=== PATIENT | female | born 1950 | race Caucasian/White ===

== ENCOUNTER → 2017-12-28 11:56 | Outpatient (REF) | payer MEDICARE, SELFPAY ==
--- NOTE | 2017-12-28 11:30 | SKI_PTH ---
PATIENT: Sonia Philippe LOC: [facility] U#:[id number] AGE/SX: 74/F ROOM: RE12/28/[address]: Isabel Arreaga : 1950 BED: DIS: SPEC #: [id number] RECD: 12/29/17 12:43 STATUS: MATEO THORNTON #: [id number] VADIM: 12/28/17 11:[address]: Isabel Arreaga DEPT: Surgical Specimen RECD BY: Radha Beach Tissues: 1 - SKIN BIOPSY(SHAVE/PUNCH) Procedures: SKIN LEVEL 4 Comments: [id number]
== END ==
LOC: NCHCN 11:56
PROVIDERS: PCP Family Medicine; Visit Provider Family Medicine
DX: C43.62 Malignant melanoma of left upper limb, including shoulder (principal)
CPT/HCPCS: 88305

== ENCOUNTER 2018-02-08 00:07 | Outpatient (CLI) | payer MEDICARE, SELFPAY ==
--- NOTE | 2018-02-08 13:06 | DI.RAD_ITS ---
SYMPTOMS/DIAGNOSIS: SCREENING FOR OSTEOPOROSIS IN POSTMENOPAUSAL WOMAN, Z78.0, PREVENTATIVE CARE, Z00.00 DEXA SCAN: The scanogram of the dorsolumbar spine is unremarkable. For the left forearm a T score of -0.9 and a Z score of 0.7 are within the normal range. For the left hip a T score of 0.3 and a Z score of 1.6 are within the normal range. For the lumbar spine a T score of 1.1 and a Z score of 2.9 are within the normal range.
== END 2018-02-08 00:27 ==
PROVIDERS: PCP Family Medicine; Visit Provider Family Medicine
DX: Z13.820 Encounter for screening for osteoporosis (principal); Z78.0 Asymptomatic menopausal state
CPT/HCPCS: 77080

== ENCOUNTER 2018-06-21 18:08 | Emergency (ER) | payer MEDICARE, SELFPAY ==
[2018-06-21 18:13] VITALS: BP 153/98; PULSE 76; RESP 18; TEMP 36.7; O2SAT 96
--- NOTE | 2018-06-21 18:14 | W.ED.GENAD ---
Discharge Plan Disposition Patient Disposition: HOME Condition: Stable Discharge Details Chief Complaint: RespSymp Clinical Impression: Community acquired pneumonia Primary Care Provider: Isabel Arreaga ED Provider: Ilan Richter Home Meds and New Rx's Prescriptions: New prednisone 20 mg tablet 60 mg PO DAILY 4 Days Qty: 12 RF: 0 levofloxacin 750 mg tablet 750 mg PO DAILY Qty: 4 RF: 0 Continued citalopram 20 MG tablet 40 mg PO HS RF: 0 codeine-guaifenesin [Virtussin AC] 10-100 mg/5 mL Liquid 5 ml PO QID RF: 0 Discharge Instructions Instructions: Community Acquired Pneumonia (ED) Additional Instructions: you are being treated for a lung infection follow up with your primary care provider's office within a week if you have worsening shortness of breath or severe worsening of pain return to the emergency department for reevaluation you can take 1000mg tylenol and 600mg ibuprofen every 6 hours for pain as needed Medical Decision Making 67 yo female with hx of chronic fatgiue syndrome, migraines, who comes in with 3 weeks of cough. Denies fevers, recent travel, chest pain/pressure. HAs a headache she has with coughing she states feels like mild migraine, is intermittent, not worse of her life and slowly worsens so doubt sah and has no meningismus to suggest scrub tech infection. She does have wheezing in the rll on exam, speaking in full sentences on exam in no distress. Will treat with neb, steroids and obtain cxr. Is HD stable and appears well systemically so do not feel labs indicated to eval for sepsis at this time. pt remains stable, cough has improved with neb and steroids and wheezing in right lower lobe inproved. Xray negative on my read but given her cough and focal findings on xray will start abx to cover for CAP. She is allergic to tetracyclines so will start levofloxacin. Advised f/u with pcp and return precautions given Differential Diagnosis uri, post nasal drip, cap Imaging Data Radiologic Study: Attestation: I personally reviewed and interpreted this imaging study as follows: Imaging: X-Ray Radiologist's impression: IMPRESSION: No evidence for acute abnormality in the chest HPI General Mode of arrival: ambulatory. Date/Time Provider Initiated Documentation: 06/21/18 18:10. Limitations to Documentation: no limitations. Information obtained by: patient. History of Present Illness 67 year old F presents to the emergency department with the chief complaint of cough, described as moderate, with intensity rated at 5. Patient started experiencing this week(s) (3) and it has been constant. No relieving factors improve symptom(s), No exacerbating factors reported . Patient did receive the following treatments prior to arrival, none Related Data Home Medications Medication Instructions Recorded Confirmed citalopram 40 mg PO HS 12/06/12 06/21/18 codeine-guaifenesin [Virtussin AC] 5 ml PO QID 06/21/18 06/21/18 levofloxacin 750 mg PO DAILY #4 tab 06/21/18 prednisone 60 mg PO DAILY 4 Days #12 tab 06/21/18 Previous Rx's Medication Instructions Recorded levofloxacin 750 mg PO DAILY #4 tab 06/21/18 prednisone 60 mg PO DAILY 4 Days #12 tab 06/21/18 Allergies Allergy/AdvReac Type Severity Reaction Status Date / Time Penicillins Allergy Intermediate Hives Unverified 06/21/18 18:16 tetracycline [Tetracycline] Allergy Intermediate hive Unverified 06/21/18 18:16 meclizine Allergy Unknown Unverified 06/21/18 18:16 Review of Systems Review of Systems All systems reviewed & are unremarkable except as noted in HPI and below Constitutional Denies chills, Denies fever(s) and Denies weakness Cardiovascular Denies chest pain and Denies dyspnea Respiratory Denies dyspnea Gastrointestinal Denies abdominal pain, Denies nausea and Denies vomiting Musculoskeletal Denies joint swelling Integumentary/Breasts Denies rash Neurologic Denies weakness [facility] Medical History Cerebral palsy Chronic Fatigue Depression Disability Irritable bowel syndrome Malrotation Bowel migraine, unspec., not intractable Surgical History Appendectomy Colonoscopy - MAC (04/28/17) 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) Vaginal hysterectomy Social History Smoking/Tobacco Use Status: Former Tobacco Use Exam Const General: no acute distress Orientation: alert HENMT Head: normal to inspection Ears: external ears normal General nose exam: external nose normal Mouth: moist mucous membranes Eyes General: appearance normal, both eyes and all related structures Neck Neck: normal visual inspection Resp Effort & Inspection: normal respiratory effort and able to speak in complete sentences Cardio Rate: regular rate Skin General skin exam: no rashes or lesions noted Neuro General: alert and oriented x3 Extrem General: normal to inspection Psych Mental Status: mental status grossly normal
--- NOTE | 2018-06-21 18:19 | DI.RAD_ITS ---
SYMPTOM/DIAGNOSIS: COUGH PA AND LATERAL CHEST: 06/21/18 The heart is normal in size. The lungs are clear. The mediastinal structures and pleura appear intact. CONCLUSION: Normal chest.
--- NOTE | 2018-06-21 18:24 | ED.GENADUL_ITS ---
Discharge Plan Disposition Patient Disposition: HOME Condition: Stable Discharge Details Chief Complaint: RespSymp Clinical Impression: Community acquired pneumonia Primary Care Provider: Isabel Arreaga ED Provider: Ilan Richter Home Meds and New Rx's Prescriptions: New prednisone 20 mg tablet 60 mg PO DAILY 4 Days Qty: 12 RF: 0 levofloxacin 750 mg tablet 750 mg PO DAILY Qty: 4 RF: 0 Continued citalopram 20 MG tablet 40 mg PO HS RF: 0 codeine-guaifenesin [Virtussin AC] 10-100 mg/5 mL Liquid 5 ml PO QID RF: 0 Discharge Instructions Instructions: Community Acquired Pneumonia (ED) Additional Instructions: you are being treated for a lung infection follow up with your primary care provider's office within a week if you have worsening shortness of breath or severe worsening of pain return to the emergency department for reevaluation you can take 1000mg tylenol and 600mg ibuprofen every 6 hours for pain as needed Medical Decision Making 67 yo female with hx of chronic fatgiue syndrome, migraines, who comes in with 3 weeks of cough. Denies fevers, recent travel, chest pain/pressure. HAs a headache she has with coughing she states feels like mild migraine, is intermittent, not worse of her life and slowly worsens so doubt sah and has no meningismus to suggest branch account manager infection. She does have wheezing in the rll on exam, speaking in full sentences on exam in no distress. Will treat with neb, steroids and obtain cxr. Is HD stable and appears well systemically so do not feel labs indicated to eval for sepsis at this time. pt remains stable, cough has improved with neb and steroids and wheezing in right lower lobe inproved. Xray negative on my read but given her cough and focal findings on xray will start abx to cover for CAP. She is allergic to tetracyclines so will start levofloxacin. Advised f/u with pcp and return precautions given Differential Diagnosis uri, post nasal drip, cap Imaging Data Radiologic Study: Attestation: I personally reviewed and interpreted this imaging study as follows: Imaging: X-Ray Radiologist's impression: IMPRESSION: No evidence for acute abnormality in the chest HPI General Mode of arrival: ambulatory . Date/Time Provider Initiated Documentation: 06/21/18 18:10 . Limitations to Documentation: no limitations . Information obtained by: patient . History of Present Illness 67 year old F presents to the emergency department with the chief complaint of cough, described as moderate, with intensity rated at 5. Patient started experiencing this week(s) (3) and it has been constant. No relieving factors improve symptom(s), No exacerbating factors reported . Patient did receive the following treatments prior to arrival, none Related Data Home Medications Medication Instructions Recorded Confirmed citalopram 40 mg PO HS 12/06/12 06/21/18 codeine-guaifenesin [Virtussin AC] 5 ml PO QID 06/21/18 06/21/18 levofloxacin 750 mg PO DAILY #4 tab 06/21/18 prednisone 60 mg PO DAILY 4 Days #12 tab 06/21/18 Previous Rx's Medication Instructions Recorded levofloxacin 750 mg PO DAILY #4 tab 06/21/18 prednisone 60 mg PO DAILY 4 Days #12 tab 06/21/18 Allergies Allergy/AdvReac Type Severity Reaction Status Date / Time Penicillins Allergy Intermediate Hives Unverified 06/21/18 18:16 tetracycline [Tetracycline] Allergy Intermediate hive Unverified 06/21/18 18:16 meclizine Allergy Unknown Unverified 06/21/18 18:16 Review of Systems Review of Systems All systems reviewed & are unremarkable except as noted in HPI and below Constitutional Denies chills, Denies fever(s) and Denies weakness Cardiovascular Denies chest pain and Denies dyspnea Respiratory Denies dyspnea Gastrointestinal Denies abdominal pain, Denies nausea and Denies vomiting Musculoskeletal Denies joint swelling Integumentary/Breasts Denies rash Neurologic Denies weakness [facility] Medical History Cerebral palsy Chronic Fatigue Depression Disability Irritable bowel syndrome Malrotation Bowel migraine, unspec., not intractable Surgical History Appendectomy Colonoscopy - MAC (04/28/17) 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) Vaginal hysterectomy Social History Smoking/Tobacco Use Status: Former Tobacco Use Exam Const General: no acute distress Orientation: alert HENMT Head: normal to inspection Ears: external ears normal General nose exam: external nose normal Mouth: moist mucous membranes Eyes General: appearance normal, both eyes and all related structures Neck Neck: normal visual inspection Resp Effort & Inspection: normal respiratory effort and able to speak in complete sentences Cardio Rate: regular rate Skin General skin exam: no rashes or lesions noted Neuro General: alert and oriented x3 Extrem General: normal to inspection Psych Mental Status: mental status grossly normal
[2018-06-21] MEDS: Ketorolac 30 MG/ML VIAL IVP (18:25)
[2018-06-21] MEDS: predniSONE 20 MG TAB 60 MG PO (18:28)
[2018-06-21 18:36] VITALS: RESP 1
[2018-06-21] MEDS: Albuterol/Ipratropium 3 ML UPD VIAL UPD (18:36)
--- NOTE | 2018-06-21 19:00 | DI.VRAD_ITS ---
EXAM: XR Chest, 2 Views EXAM DATE/TIME: 06/21/2018 6:20 PM CLINICAL HISTORY: 67 years old, female; Signs and symptoms; Other: Cough TECHNIQUE: XR of the chest, 2 views. COMPARISON: CR CHEST 2 VIEWS PA,LAT 07/14/2017 9:02 AM FINDINGS: Lungs: Unremarkable. No consolidation. Pleural space: Unremarkable. No pleural effusion. No pneumothorax. Heart/Mediastinum: Unremarkable. No cardiomegaly. Bones/joints: Unremarkable. IMPRESSION: No evidence for acute abnormality in the chest. COMMENT: Preliminary interpretation is based on receipt of 2 image(s). A final report will be issued subsequently. Dictated and Authenticated by: Emily Lorenz MD. Ordering:TAHIR Talavera MD
[2018-06-21 19:06] VITALS: PULSE 76; RESP 1; RESP 18; O2SAT 96
[2018-06-21] MEDS: Albuterol HFA 8 GM 60 PUFF INH IH (19:06)
[2018-06-21] MEDS: Inhaler, Assist Device 1 EACH MC (19:07)
[2018-06-21] MEDS: LEVOFLOXACIN 500 MG, LEVOFLOXACIN 250 MG 750 MG PO (19:07)
== END 2018-06-21 19:35 | disposition home or self-care (01) ==
PROVIDERS: Emergency Provider Emergency Medicine; PCP Family Medicine
DX: J18.9 Pneumonia, unspecified organism (principal)
CPT/HCPCS: 94640; 96374; 99284; 71046; J1885; J7512; J7620

== ENCOUNTER 2018-10-27 20:40 | Emergency (ER) | payer MEDICARE, SELFPAY ==
[2018-10-27 20:45] VITALS: BP 129/98; PULSE 78; RESP 18; TEMP 36.3; O2SAT 98
--- NOTE | 2018-10-27 20:56 | DI.RAD_ITS ---
SYMPTOM/DIAGNOSIS: COUGH, RT UPPER LUNG WHEEZE PA AND LATERAL CHEST: Comparison is made with 06/21/18. Heart size and pulmonary vasculature are within normal limits. The lungs are clear. No effusions or pneumothoraces are identified. Mild degenerative changes are seen in the spine. IMPRESSION: No acute pulmonary process.
--- NOTE | 2018-10-27 21:00 | W.ED.GENAD ---
Discharge Plan Disposition Patient Disposition: HOME Condition: Good Discharge Details Chief Complaint: RespSymp Clinical Impression: Pneumonia, Exacerbation of reactive airway disease Primary Care Provider: Isabel Arreaga ED Provider: Martinez Abbott Home Meds and New Rx's Prescriptions: New prednisone 50 MG tablet 50 mg PO DAILY Qty: 5 RF: 0 azithromycin 250 mg tablet 250 mg PO DAILY 5 Days Qty: 5 RF: 0 No Action citalopram 20 MG tablet 40 mg PO HS RF: 0 albuterol sulfate [Ventolin HFA] 90 mcg/actuation Hfa Aerosol Inhaler 1 puff Inhalation Q4H PRN PRNRF: 0 Discharge Instructions Instructions: Reactive Airways Disease (ED), Pneumonia (ED) Additional Instructions: Your clinical symptoms are concerning for pneumonia please take the steroid and antibiotic as directed. Please take 1 to 2 puffs of your inhaler every 6 hours for the next 3 days. If you notice any worsening of your symptoms, or any new symptoms such as vomiting, diarrhea, fever, chills, shortness of breath, chest pain, numbness, weakness, or fainting , please return immediately to the emergency department for reevaluation. Please follow up with your primary care provider as soon as possible for reassessment and reevaluation. As always, it was a pleasure participating in your medical care today. Referrals: Isabel Arreaga [Primary Care Provider] - Medical Decision Making This is a pleasant 68-year-old female who presents today for evaluation of cough for the last 3 days. No productivity for the cough. She denies fever or chills. She denies any chest pain, chest heaviness, arm neck or shoulder pain. She denies any numbness tingling or weakness. Signs and symptoms appear inconsistent with ACS. Physical exam does demonstrate mild crackles and wheeze in the right upper lung [place]. She does have a distant history of tobacco abuse. Concern for potential pneumonia versus mild bronchitis. We will get an x-ray, breathing treatment and reassess.. 10:05 PM Chest x-ray results per virtual radiology are interpreted as chronic changes but no acute cardiopulmonary process, however with the patient's clinical symptoms, positive lung sounds, and concerning history I do feel that clinical pneumonia is certainly noted. Due to the patient's allergies we will give azithromycin for treatment. Also of steroids, and recommend continuation of her inhaler use. I have extensively reviewed the treatment plan and discharge instructions with the patient and their family. I have addressed all patient concerns at this time. The patient and family was made aware of what symptoms to monitor for that would warrant a return to the emergency department. Discussed the plan with the patient and family, they demonstrate verbal understanding and agreement with our assessment and plan at this time. Exam(s) EXAM: XR Chest, 2 Views EXAM DATE/TIME: 10/27/2018 8:58 PM CLINICAL HISTORY: 68 years old, female; Signs and symptoms; Patient HX: Cough for 3 days, right upper lung wheeze TECHNIQUE: Imaging protocol: XR of the chest, 2 views. COMPARISON: CR XR CHEST 2V PA LATERAL 06/21/2018 6:25 PM FINDINGS: Lungs: Unremarkable. No consolidation. Pleural space: Unremarkable. No pleural effusion. No pneumothorax. Heart/Mediastinum: Unremarkable. No cardiomegaly. Vasculature: There is minimal ectasia of the thoracic aorta. Bones/joints: There is mild scoliosis of the thoracic spine. IMPRESSION: Chronic changes but no acute cardiopulmonary process. Dictated and Authenticated by: Ilan Mathias MD. Ordering:TEE Henriquez MD [facility] General Date/Time Provider Initiated Documentation: 10/27/18 20:50. HPI Narrative: This is a pleasant 68-year-old female with a past medical history of migraine, irritable bowel syndrome, cerebral palsy, who presents today for evaluation of cough for the last 3 days, no productivity to the cough. She denies any associated shortness of breath, chest pain, chest heaviness, chest tightness, arm neck or shoulder pain. She denies any fever or chills. Symptoms are moderate not made worse when lying flat versus sitting upright. She does admit to some mild upper respiratory congestion and mild sore throat. She does admit to congestion-like symptoms in the face and sinuses over the last 3 days as well. She denies any history of cardiac disease. She denies any recent antibiotic use or any recent admission. She has no other complaints or modifying factors at this time. Denies PE risk factors such as recent long car rides, immobilization, recent surgery, prior history of DVT or PE, family history of PE or DVT, morbid obesity, exogenous estrogen and smoking, hemoptysis, history of cancer. Related Data Home Medications Medication Instructions Recorded Confirmed citalopram 40 mg PO HS 12/06/12 10/27/18 albuterol sulfate [Ventolin HFA] 1 puff INHALATION Q4H PRN PRN 10/27/18 10/27/18 azithromycin 250 mg PO DAILY 5 Days #5 tab 10/27/18 prednisone 50 mg PO DAILY #5 tab 10/27/18 Previous Rx's Medication Instructions Recorded azithromycin 250 mg PO DAILY 5 Days #5 tab 10/27/18 prednisone 50 mg PO DAILY #5 tab 10/27/18 Allergies Allergy/AdvReac Type Severity Reaction Status Date / Time Penicillins Allergy Intermediate Hives Unverified 10/27/18 20:48 tetracycline [Tetracycline] Allergy Intermediate hive Unverified 10/27/18 20:48 meclizine Allergy Unknown Unverified 10/27/18 20:48 General Stated Complaint: RespSymp JOY: 3 Review of Systems Review of Systems All systems reviewed & are unremarkable except as noted in HPI and below PFSH Social History Smoking/Tobacco Use Status: Never Alcohol Intake: never Drug use: Never Do you feel safe at home: Yes Do you feel safe in your relationship?: Yes Exam Narrative Exam Narrative: 1.Const: Well-nourished, Well-developed, appearing stated age 2.Eyes: PERRL, no conjunctival injection, and symmetrical lids. 3.ENT: Atraumatic external nose and ears. Moist MM. Neck: Symmetric, trachea midline, No thyromegaly. No erythema in the posterior oropharynx. No tonsillar exudates. 4.CVS: +S1/S2, No murmurs or gallops. Peripheral pulses 2+ and equal in all extremities. Brisk capillary refill in all extremities. 5.RESP: Unlabored respiratory effort. Minimal wheeze and crackles in the right upper and right mid lung [place]. No rhonchi. 6.GI: Soft, Nontender/Nondistended, No hepatosplenomegaly. No guarding or rebound. 7.MSK: Normocephalic/Atraumatic, Extremities w/o deformity or ttp No cyanosis or clubbing, Normal movement of all extremities 8.Skin: Warm, Dry. No rashes or lesions. 9.Neuro: senior office assistant II-XII grossly intact. Sensation grossly intact, no focal neurologic deficits. 10.Psych: (AAO) x3. Appropriate mood and affect Course Vital Signs Temperature 36.3 C L 10/27/18 20:45 Pulse 78 10/27/18 20:45 Respiratory Rate 18 10/27/18 20:45 Blood Pressure 129/98 H 10/27/18 20:45 Pulse Oximetry 98 10/27/18 20:45 Temperature 36.3 C L 10/27/18 20:45 Temperature Source Skin 10/27/18 20:45 Pulse 78 10/27/18 20:45 Respiratory Rate 18 10/27/18 20:45 Respiratory Effort Non-Labored 10/27/18 20:58 Respiratory Depth Normal 10/27/18 20:58 Blood Pressure 129/98 H 10/27/18 20:45 Blood Pressure Position Sitting 10/27/18 20:45 Pulse Oximetry 98 10/27/18 20:45 Oxygen Delivery Method Room Air 10/27/18 20:45 Oxygen Flow Rate 0 10/27/18 20:45
[2018-10-27 21:03] VITALS: RESP 1
[2018-10-27] MEDS: Albuterol/Ipratropium 3 ML UPD VIAL UPD (21:03)
[2018-10-27 21:22] VITALS: PULSE 78; RESP 1; RESP 18; O2SAT 100
--- NOTE | 2018-10-27 21:48 | DI.VRAD_ITS ---
EXAM: XR Chest, 2 Views EXAM DATE/TIME: 10/27/2018 8:58 PM CLINICAL HISTORY: 68 years old, female; Signs and symptoms; Patient HX: Cough for 3 days, right upper lung wheeze TECHNIQUE: Imaging protocol: XR of the chest, 2 views. COMPARISON: CR XR CHEST 2V PA LATERAL 06/21/2018 6:25 PM FINDINGS: Lungs: Unremarkable. No consolidation. Pleural space: Unremarkable. No pleural effusion. No pneumothorax. Heart/Mediastinum: Unremarkable. No cardiomegaly. Vasculature: There is minimal ectasia of the thoracic aorta. Bones/joints: There is mild scoliosis of the thoracic spine. IMPRESSION: Chronic changes but no acute cardiopulmonary process. Dictated and Authenticated by: Ilan Mathias MD. Ordering:TEE Henriquez MD
[2018-10-27] MEDS: Azithromycin 250 MG TAB 500 MG PO (22:06)
[2018-10-27 22:14] VITALS: BP 128/90; PULSE 78; RESP 18; TEMP 36.5; O2SAT 98
== END 2018-10-27 21:15 | disposition home or self-care (01) ==
PROVIDERS: Emergency Provider Student in an Organized Health Care Education/Training Program; PCP Family Medicine
DX: J18.9 Pneumonia, unspecified organism (principal); J45.901 Unspecified asthma with (acute) exacerbation
CPT/HCPCS: 94640; 99283; 71046; J7620

== ENCOUNTER 2019-03-15 12:36 | Emergency (ER) | payer MEDICARE, SELFPAY ==
[2019-03-15] VITALS (7 sets, daily range): BP systolic 137–144; BP diastolic 85–99; PULSE 61–68; RESP 15–18; TEMP 36.6; O2SAT 98–100
--- NOTE | 2019-03-15 12:33 | DI.CT_ITS ---
EXAM: CT HEAD WO CLINICAL HISTORY: headache and weakness TECHNIQUE: COMPARISON: HEAD WITHOUT CONTRAST from 12/08/2012 FINDINGS: Noncontrast cranial CT was performed. There is mild generalized cerebral atrophy. There are areas o f decreased attenuation in right frontal periventricular white matter and left frontoparietal periven tricular white matter/subcortical region consistent with old infarcts and these are unchanged in appe arance comparison prior CT of 2012. No evidence of acute intracranial hemorrhage mass effect or midl ine shift. The orbital and temporal bone structures appear intact. The paranasal sinuses and mastoi d air cells appear clear as visualized. IMPRESSION: No evidence of acute intracranial process
--- NOTE | 2019-03-15 12:37 | ED.GENADUL_ITS ---
Discharge Plan Disposition Patient Disposition: HOME Condition: Stable Discharge Details Chief Complaint: AMS/LOC Clinical Impression: Unsteadiness Primary Care Provider: Isabel Arreaga ED Provider: Ilan Richter Home Meds and New Rx's Prescriptions: Continued citalopram 20 MG tablet 40 mg PO HS RF: 0 albuterol sulfate [Ventolin HFA] 90 mcg/actuation Hfa Aerosol Inhaler 1 puff Inhalation Q4H PRN PRNRF: 0 Discharge Instructions Additional Instructions: your blood work and cat scan did not show any concerning findings start taking 81mg aspirin daily follow up with your primary care provider within 1 week if you feel more ill, have difficulty breathing, vision changes or weakness return to the emergency department Medical Decision Making 68 yo female with hx of TIA, cerebral palsy, who comes in with chief complaint of feeling unsteady and feeling as though she is drunk despite not drinking alcohol. She states her arms and legs feel shaky and has numbness on the left cheek. She states she went to bed feeling fine and woke up with these symptoms. Denies fevers, chills, has mild frontal headache, no chest pain or pressure, no sob, no abdominal pain. She cufrently has an NIH of 0 on my exam. Could be TIA, less likely cva. Will obtain ct head. She is outside window for tpa. She does seem anxious so will provide ativan to help with her symptoms while workup is being done labs and ct head unremarkable and still has an NIH of 0 on exam.. She does feel improved and appears less anxious. I recommended admission for observation for tia and less likely cva but she declined as she has to care for her 11 year old grand kid. She has capacity to make her own decisions and is willing to take the risks of leaving including possibility of having a cva and possible and disability. She understands she can return if she changes her mind or if she worsens. I did advise she take 81mg asa daily and f/u with her pcp as well Differential Diagnosis Differential Diagnosis: cva, tia, anemia, anxiety Imaging Data Radiologic Study: Attestation: I personally reviewed and interpreted this imaging study as follows: Imaging: CT Scan Radiologist's impression: Exam(s) a CT:CT head wo EXAM: CT HEAD WO CLINICAL HISTORY: weakness TECHNIQUE: COMPARISON: HEAD WITHOUT CONTRAST from 08/07/2015 FINDINGS: Noncontrast cranial CT was performed. There is moderate generalized cerebral atrophy and there are patchy areas of decreased attenuation in periventricular white matter bilaterally consistent with microvascular ischemic changes. No evidence of acute intracranial hemorrhage mass effect or midline shift. The orbital and temporal bone structures appear intact. Visualized mastoid air cells and paranasal sinuses are clear. IMPRESSION: No evidence of acute intracranial process. Lab Data Lab results reviewed: Yes I reviewed the patient's lab results. ECG Data Attestation: I personally reviewed and interpreted this ECG (s) as follows: Prior ECG tracings: not available for review Interpretation: sinus rhythm, rate of 65, pr 156, no acute st t twave ischemic findings HPI General Mode of arrival: EMS . Date/Time Provider Initiated Documentation: 03/15/19 12:36 . Limitations to Documentation: no limitations . Information obtained by: patient . History of Present Illness 68 year old F presents to the emergency department with the chief complaint of shaky, described as moderate, and it has been constant. No relieving factors improve symptom(s), No exacerbating factors reported . Patient did receive the following treatments prior to arrival, none Related Data Home Medications Medication Instructions Recorded Confirmed citalopram 40 mg PO HS 12/06/12 03/15/19 albuterol sulfate [Ventolin HFA] 1 puff INHALATION Q4H PRN PRN 10/27/18 03/15/19 Allergies Allergy/AdvReac Type Severity Reaction Status Date / Time Penicillins Allergy Intermediate Hives Unverified 03/15/19 12:33 tetracycline [Tetracycline] Allergy Intermediate hive Unverified 03/15/19 12:33 meclizine Allergy Unknown Unverified 03/15/19 12:33 General Stated Complaint: AMS/LOC JOY: 2 Review of Systems All systems reviewed & are unremarkable except as noted in HPI and below Constitutional Constitutional: Denies chills and Denies fever(s) ENT Ears, Nose, Mouth, and Throat: Denies change in voice Cardiovascular Cardiovascular: Denies chest pain and Denies dyspnea Respiratory Respiratory: Denies cough and Denies dyspnea Gastrointestinal Gastrointestinal: Denies abdominal pain, Denies nausea and Denies vomiting Musculoskeletal Musculoskeletal: Denies joint swelling PFSH Social History Smoking/Tobacco Use Status: Never Alcohol Intake: never Drug use: Never Do you feel safe at home: Yes Do you feel safe in your relationship?: Yes Exam Const General: anxious Orientation: alert HENMT Head: normal to inspection Ears: external ears normal General nose exam: external nose normal Mouth: moist mucous membranes Eyes General: appearance normal, both eyes and all related structures Neck Neck: normal visual inspection Resp Effort & Inspection: normal respiratory effort and able to speak in complete sentences Cardio Rate: regular rate Skin General skin exam: no rashes or lesions noted Neuro General: alert and oriented x3 Extrem General: normal to inspection Psych Mental Status: mental status grossly normal Course Vital Signs Vital signs: Vital Signs Temperature 36.6 C 03/15/19 12:28 Pulse 68 03/15/19 12:28 Respiratory Rate 18 03/15/19 12:28 Blood Pressure 137/99 H 03/15/19 12:28 Pulse Oximetry 98 03/15/19 12:28 Temperature 36.6 C 03/15/19 12:28 Temperature Source Temporal Artery Scan 03/15/19 12:28 Pulse 68 03/15/19 12:28 Respiratory Rate 18 03/15/19 12:28 Respiratory Effort Non-Labored 03/15/19 12:28 Blood Pressure 137/99 H 03/15/19 12:28 Pulse Oximetry 98 03/15/19 12:28 Oxygen Delivery Method Room Air 03/15/19 12:28 Oxygen Flow Rate 0 03/15/19 12:28
[2019-03-15 12:49] LABS: Bilirubin Negative (Negative); Blood Negative (Negative); Clarity Clear (Clear); Glucose Negative (Negative); Ketones Negative (Negative); Leukocyte Esterase Negative (Negative); Nitrite Negative (Negative); Specific Gravity 1.015 (1.005-1.025); Urobilinogen 0.2 EU/dL (Up TO 0.2); pH 7.5 (5-8)
[2019-03-15] MEDS: LORazepam 2 MG/ML VIAL 0.5 MG IVP (12:49)
[2019-03-15 13:05] LABS: Abs Immature Grans 0.02 k/cumm (0.0-0.09); Absolute Basophil Count 0.04 k/cumm (0.0-0.2); Absolute Eosinophil Count 0.14 k/cumm (0.0-0.7); Absolute Lymphocyte Count 2.19 k/cumm (1.2-3.4); Absolute Monocyte Count 0.66 k/cumm (0.11-0.7); Absolute Neutrophil Count 3.56 k/cumm (1.2-6.7); Basophils % 0.6; Eosinophils % 2.1; HCT 40.2 % (36.0-46.0); HGB 13.2 g/dL (12.0-15.5); Immature Grans % 0.3; Lymphocytes % 33.1; Mean Corp. HGB Concentration 32.8 g/dL (32.0-36.0); Mean Corpuscular Hemoglobin 28.9 pg (27.0-33.0); Mean Platelet Volume 9.2 fL (8.0-11.0); Neutrophils % 53.9; Platelet Count 382 x1000/uL (130-400); RBC 4.57 m/cumm (4.00-5.20); RBC Distribution Width 13.3 % (11.7-14.6); White Blood Cell Count 6.61 k/cumm (4.4-10.8)
[2019-03-15 13:14] LABS: *AMPHETAMINES SCREEN URINE Negative (Negative); *BARBITURATES SCREEN URINE Negative (Negative); *BENZODIAZEPINES SCREEN URINE Negative (Negative); Cannabinoids THC Negative (Negative); Cocaine Screen,Urine Negative (Negative); METHADONE URINE SCREEN Negative (Negative); OPIATES URINE SCREEN Negative (Negative)
[2019-03-15 13:16] LABS: Tricyclic Antidepressants Negative (Negative)
[2019-03-15 13:36] LABS: ALT 47 U/L (14-59); AST 33 U/L (15-37); Albumin 3.7 g/dL (3.4-5.0); Alkaline Phosphatase 59 U/L (46-116); Anion Gap 10.5 mmol/L (3-11); BUN 18 mg/dL (7-18); Bilirubin, Total 0.4 mg/dL (0.2-1.0); CO2 23.5 mmol/L (21.0-32.0); CREATININE 1.03 mg/dL (0.55-1.02); Calcium 8.8 mg/dL (8.5-10.1); Chloride 105 mmol/L (98-107); ETHANOL BLOOD < 3.0 mg/dL (<3); Estimated GFR 53.61 (mL/min/1.73m2); Glucose 90 mg/dL (70-100); Magnesium 2.1 mg/dL (1.8-2.4); Potassium 4.1 mmol/L (3.5-5.1); Sodium 139 mmol/L (136-145); Total Protein 7.1 g/dL (6.4-8.2)
[2019-03-15 13:37] LABS: Troponin I < 0.05 ng/mL (0.00-0.06)
[2019-03-15 13:42] LABS: PTT Activated 26.7 sec (21.0-31.4); Prothrombin Time 10.5 sec (9.3-11.0)
== END 2019-03-15 14:58 | disposition home or self-care (01) ==
PROVIDERS: Emergency Provider Emergency Medicine; PCP Family Medicine
DX: R26.81 Unsteadiness on feet (principal); G80.9 Cerebral palsy, unspecified; Z86.73 Personal history of transient ischemic attack (TIA), and cerebral infarction without residual deficits
CPT/HCPCS: 36415; 80053; 80307; 93005; 96374; 99285; 70450; 80320; 81003; 83735; 84484; 85025; 85610; 85730; 93010; J2060

== ENCOUNTER 2019-06-10 08:03 | Emergency (ER) | payer MEDICARE, SELFPAY ==
[2019-06-10 08:09] VITALS: BP 126/80; PULSE 80; RESP 16; TEMP 37; O2SAT 98
--- NOTE | 2019-06-10 08:12 | ED.GENADUL_ITS ---
Discharge Plan Disposition Patient Disposition: HOME Condition: Stable Discharge Details Chief Complaint: Trauma Clinical Impression: Fall, Hip joint pain Primary Care Provider: Isabel Arreaga ED Provider: Aziza Tavarez Home Meds and New Rx's Prescriptions: New lidocaine 5 % adhesive patch,medicated 1 patch TP DAILY PRN (Reason: pain (scale score 4-6)) Qty: 3 RF: 0 Continued citalopram 20 MG tablet 40 mg PO HS RF: 0 albuterol sulfate [Ventolin HFA] 90 mcg/actuation Hfa Aerosol Inhaler 1 puff Inhalation Q4H PRN PRNRF: 0 Discharge Instructions Instructions: Fall Prevention for Older Adults (ED), Leg Pain (ED) Additional Instructions: . Rest, ice, compression, elevation. Follow-up with primary care provider in 3 to 5 days. Use medication as directed. Take Tylenol or ibuprofen every 4-6 hours as needed for pain. Return to the ED for any worsening pain not relieved by medications or any concerns. Referrals: Isabel Arreaga [Primary Care Provider] - Medical Decision Making 68 year old female presents after a slip and fall on ice on Monday. No LOC, No midline C, T, or L spine tenderness. Presents with Headache, Right hip pain, and mid sternal chest wall tenderness. Increased pain with deep inspiration. Plan is to do a chest x-ray and hip x-ray given Flexeril and ibuprofen as needed for pain control. Patient reevaluation still complaining of pain additional medication ordered. Patient given tramadol and lidocaine transdermal patch. Ambulatory with steady gait. Discharged with Lidocaine patch prescription and instructions to follow up with PCP. Differential Diagnosis Differential Diagnosis: Rib Fracture, hip fracture, SAH, Muscle strain HPI General Date/Time Provider Initiated Documentation: 06/10/19 08:07 . Limitations to Documentation: no limitations . Information obtained by: patient . History of Present Illness 68 year old F presents to the emergency department with the chief complaint of Fall, described as moderate, with intensity rated at 8. and is localized to the head, chest and pelvis. Patient reports no radiation. Patient started experiencing this day(s) (2) and it has been constant. Immobilization improves symptom(s), Movement worsens symptoms . Patient notes no other symptoms.. Patient did receive the following treatments prior to arrival, none HPI Narrative: 68 year old female presents after a slip and fall on the ice Monday. Presents with right hip, and midsternal chest pain which increases with deep breathing. Also reports posterior occipital headache. No LOC, No midline C-spine pain. No midline T or L spine tenderness. Related Data Home Medications Medication Instructions Recorded Confirmed citalopram 40 mg PO HS 12/06/12 06/10/19 albuterol sulfate [Ventolin HFA] 1 puff INHALATION Q4H PRN PRN 10/27/18 06/10/19 lidocaine 1 patch TP DAILY PRN #3 each 06/10/19 Previous Rx's Medication Instructions Recorded lidocaine 1 patch TP DAILY PRN #3 each 06/10/19 Allergies Allergy/AdvReac Type Severity Reaction Status Date / Time Penicillins Allergy Intermediate Hives Unverified 06/10/19 08:12 tetracycline [Tetracycline] Allergy Intermediate hive Unverified 06/10/19 08:12 meclizine Allergy Unknown Unverified 06/10/19 08:12 General JOY: 2 Review of Systems All systems reviewed & are unremarkable except as noted in HPI and below Eyes Eyes: Reports system reviewed and no additional complaints, except as docu ENT Ears, Nose, Mouth, and Throat: Reports system reviewed and no additional complaints, except as docu Respiratory Respiratory: Reports pain on inspiration Musculoskeletal Musculoskeletal: Reports system reviewed and no additional complaints, except as docu PFSH Medical History Cerebral palsy hemiplegic, congenital Chronic Fatigue Depression Disability Irritable bowel syndrome Malrotation Bowel migraine, unspec., not intractable Surgical History Appendectomy Colonoscopy - MAC (04/28/17) 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 Vaginal hysterectomy Social History Smoking/Tobacco Use Status: Never Alcohol Intake: never Drug use: Never Do you feel safe at home: Yes Do you feel safe in your relationship?: Yes Exam Const General: cooperative, healthy appearing, no acute distress and well developed Nutritional Appearance: average body habitus Orientation: alert, awake and oriented x3 HENMT Head: normal to inspection and normocephalic Ears: hearing grossly normal bilaterally General nose exam: external nose normal Mouth: oral mucosae normal Neck Neck: full ROM and trachea midline Chest Chest: tenderness sternum Resp Effort & Inspection: normal respiratory effort and able to speak in complete sentences Auscultation: clear to auscultation bilaterally, no rales, no rhonchi and no wheezes Cardio Rate: regular rate Rhythm: regular rhythm Heart Sounds: S1 normal and S2 normal Back/Spine/Pelvis Back: no CVA tenderness Cervical Spine: normal cervical lordosis Thoracic/Lumbar Spine: thoracic and lumbar spine normal to inspection Pelvis: no pain with anterior-posterior compression Sacroiliac joints: on the right tender to palpation Neuro General: alert, awake and oriented x3 Cognition: normal cognition Speech: speech normal
[2019-06-10] MEDS: Cyclobenzaprine 10 MG TAB PO (08:36)
[2019-06-10] MEDS: Ibuprofen 600 MG TAB PO (08:36)
--- NOTE | 2019-06-10 08:48 | DI.RAD_ITS ---
EXAM: XR HIP RT COMPLETE AP PELVIS CLINICAL HISTORY: Fall, right hip pain TECHNIQUE: COMPARISON: No exams were available for comparison FINDINGS: Two views were obtained. There are mild degenerative changes both hips. No fracture is seen. IMPRESSION:
--- NOTE | 2019-06-10 08:53 | DI.RAD_ITS ---
EXAM: XR CHEST 2V PA LATERAL XR CHEST 2V PA LATERAL CLINICAL HISTORY: Fall, chest wall/ rib pain Fall, chest wall/ rib pain TECHNIQUE: 2D digital imaging was performed. COMPARISON: XR CHEST 2V PA LATERAL from 10/27/2018 FINDINGS: The heart is not enlarged. The lungs are clear and well expanded. No pleural effusion seen. Mediastin al contours appear intact. IMPRESSION: Normal chest
[2019-06-10] MEDS: traMADol 50 MG TAB PO (09:21)
[2019-06-10] MEDS: Lidocaine 5% Patch 1 PATCH TP (09:37)
[2019-06-10 09:45] VITALS: BP 139/89; PULSE 80; RESP 20; O2SAT 96
[2019-06-10 09:46] VITALS: BP 139/89; PULSE 80; RESP 20; TEMP 37; O2SAT 96
== END 2019-06-10 09:53 | disposition home or self-care (01) ==
PROVIDERS: Emergency Provider Registered Nurse Emergency; PCP Family Medicine
DX: R51 Headache (principal); M25.551 Pain in right hip; R07.89 Other chest pain; W00.0XXA Fall on same level due to ice and snow, initial encounter; G80.8 Other cerebral palsy; Z96.651 Presence of right artificial knee joint
CPT/HCPCS: 99284; 71046; 73502

== ENCOUNTER 2019-07-23 02:39 | Outpatient (CLI) | payer MEDICARE, SELFPAY ==
--- NOTE | 2019-07-23 11:25 | DI.MAMMO_ITS ---
EXAM: MAMMO SCREENING CLINICAL HISTORY: SCREENING Z12.31 TECHNIQUE: Mammograms were interpreted according to the usual protocol including computer analysis w [employer] CAD system, tomosynthesis and C-view imaging. COMPARISON: 2011 through 2016 FINDINGS: The breasts are composed of mainly fatty density , Breast Density category A. No suspicious masses or suspicious microcalcifications are seen. No skin thickening or abnormal axillary lymph nodes are seen. There has been no significant change from prior exams. IMPRESSION: BIRADS Category 1, negative mammogram. Yearly screening mammography is recommended. Breast density category A.
== END 2019-07-23 02:59 ==
PROVIDERS: PCP Family Medicine; Visit Provider Family Medicine
DX: Z12.31 Encounter for screening mammogram for malignant neoplasm of breast (principal)
CPT/HCPCS: 77063; 77067

== ENCOUNTER 2019-12-25 09:07 | Outpatient (REF) | payer MEDICARE, SELFPAY ==
[2019-12-25 20:09] LABS: HCT 44.4 % (36.0-46.0); HGB 14.1 g/dL (11.2-15.7); MCH 28.8 pg (27.0-33.0); MCHC 31.8 % (32.0-36.0); MCV 90.8 fL (80-95); MPV 10.2 fL (8.0-11.0); Platelet Count 373 10^3/uL (130-400); RBC 4.89 10^6/uL (3.93-5.22); RDW 13.2 % (11.7-14.6); RDW-SD 44.1 fL; WBC 6.27 10^3/uL (4.4-10.8)
[2019-12-25 20:55] LABS: ALT 60 U/L (14-59); AST 34 U/L (15-37); Albumin 3.7 g/dL (3.4-5.0); Alkaline Phosphatase 69 U/L (46-116); Anion Gap 10.6 mmol/L (3-11); BUN 23 mg/dL (7-18); Bilirubin, Total 0.3 mg/dL (0.2-1.0); CO2 26.4 mmol/L (21.0-32.0); CREATININE 1.04 mg/dL (0.55-1.02); Calcium 9.1 mg/dL (8.5-10.1); Calculated LDL 99 mg/dL (<100); Chloride 106 mmol/L (98-107); Cholesterol 201 mg/dL (<200); Estimated GFR 52.86 (mL/min/1.73m2); Glucose 85 mg/dL (74-106); HDL Cholesterol 54 mg/dL (40-60); Potassium 4.5 mmol/L (3.5-5.1); Sodium 143 mmol/L (136-145); Total Protein 6.8 g/dL (6.4-8.2); Triglyceride 241 mg/dL (<150)
== END 2019-12-25 09:27 ==
LOC: NCHCN 09:07
PROVIDERS: PCP Family Medicine; Visit Provider Family Medicine
DX: Z00.00 Encounter for general adult medical examination without abnormal findings (principal); R42 Dizziness and giddiness; R53.82 Chronic fatigue, unspecified; I63.9 Cerebral infarction, unspecified
CPT/HCPCS: 80053; 80061; 85027

== ENCOUNTER 2020-01-21 00:57 | Outpatient (CLI) | payer MEDICARE, SELFPAY ==
--- NOTE | 2020-01-21 | DI.CT_ITS ---
EXAM: CT ABDOMEN PELVIS W CLINICAL HISTORY: ABD PAIN, R10.9 TECHNIQUE: Imaging Protocol: Axial computed tomography images with coronal and sagittal reformatted images were created and reviewed CONTRAST MATERIAL: Intravenous: Omnipaque 350 Contrast volume:100 mL Oral: Yes COMPARISON: CT ABD PELVIS WITH CONTRAST from 11/26/2015 FINDINGS: ABDOMEN: Lung Bases: Normal where visualized. Liver: The dome of the liver was not included on this examination. There is diffuse decreased attenu ation of the liver consistent with fatty infiltration. No measurable mass. Portal, Superior Mesenteric, and Splenic Veins: Unremarkable. Gallbladder and Biliary Tract: No radiodense calculus or dilation. The gallbladder is contracted. Pancreas: Normal density, no abnormal calcifications or inflammatory process. Spleen: Normal. Adrenals: No masses seen. Kidneys: Normal size, contour and axis. No radiodense stones or obstructive uropathy. No masses seen. Abdominal Aorta: Abdominal portion non-dilated. Minimal atherosclerosis. Bowel: No obstruction or bowel wall thickening. The patient appears to be status post appendectomy. Note is made of malrotation of the bowel. The cecum is located in the midline of the pelvis. Small bowel predominantly lies in the right abdomen. Peritoneal Cavity: No ascites, collection or mesenteric inflammatory response. Lymph Nodes: Within normal limits. Bones: Degenerative changes are seen in the spine. Soft Tissues: Unremarkable. PELVIS: Bladder: Symmetric distention, no gross wall thickening. Reproductive Organs: Status post hysterectomy. Lymph Nodes: Within normal limits. Bones: Degenerative changes in the spine. IMPRESSION: 1. No acute abdominal pelvic process. 2. Fatty infiltration of the liver. 3. The dome of the liver was not included on this examination. Patient may return for imaging to inc lude the liver at their convenience. RADIATION DOSE DELIVERED: 1,158.71mGy.cm Total DLP DATA REPOSITORY: All CT scans at this facility are submitted to the National Radiology Data Registry (NRDR) Dose Index Registry (DIR) with the [employer] (ACR). RADIATION OPTIMIZATION: All CT scans at this facility use at least one of these dose optimization te chniques: automated exposure control; mA and/or kV adjustment per patient size (includes targeted exa ms where dose is matched to clinical indication); or iterative reconstruction.
[2020-01-21] MEDS: Omnipaque 350 MG/ML 100 ML BTL IJ (09:23)
[2020-01-21] MEDS: Breeza Beverage 473 ML BTL PO (09:24)
[2020-01-21] MEDS: Omnipaque 350 MG/ML 50 ML BTL PO (09:24)
== END 2020-01-21 01:17 ==
PROVIDERS: PCP Family Medicine; Visit Provider Physician Assistant
DX: R10.9 Unspecified abdominal pain (principal); K76.0 Fatty (change of) liver, not elsewhere classified
CPT/HCPCS: 74177; J3490; Q9967

== ENCOUNTER 2020-03-26 19:32 | Emergency (ER) | payer MEDICARE, SELFPAY ==
[2020-03-26 19:39] VITALS: BP 181/76; PULSE 68; TEMP 36.5; O2SAT 98
--- NOTE | 2020-03-26 19:48 | ED.GENADUL_ITS ---
Discharge Plan Disposition Patient Disposition: HOME Condition: Stable Discharge Details Clinical Impression: Headache Primary Care Provider: Isabel Arreaga ED Provider: Aziza Tavarez Home Meds and New Rx's Prescriptions: New ondansetron HCl [Zofran] 4 mg tablet 4 mg PO Q8H PRN (Reason: nausea and vomiting) Qty: 7 RF: 0 No Action citalopram 20 MG tablet 40 mg PO BID RF: 0 pantoprazole [Protonix] 40 mg Tablet,Delayed Release (Dr/Ec) 40 mg PO DAILY RF: 0 albuterol sulfate [Ventolin HFA] 90 mcg/actuation Hfa Aerosol Inhaler 1 puff Inhalation Q4H PRN PRNRF: 0 Discharge Instructions Instructions: General Headache (ED) Additional Instructions: Follow up with primary care provider in 3-5 days. Return to ED sooner if any worsening or concerns. Increase oral fluids. Please take Tylenol or Ibuprofen with food every 4-6 hours as needed for pain and swelling. Return to the ED or be seen sooner for any confusion, numbness tingling, weakness fever or worsening symptoms. Referrals: Isabel Arreaga [Primary Care Provider] - Medical Decision Making 69-year-old female presents to the ED with chief complaint of headache. She reports that headache began yesterday, has continued throughout the day associated with nausea, no vomiting, photosensitivity much sensitivity to sound. Denies any recent head trauma, no weakness or tingling noted to extremities. Denies any blurry vision or double vision. Has taken Tylenol with little to no help. Does have a history of migraines and reports that this is similar to previous episodes. At this time work-up ordered including CBC, CMP, liter normal saline, Compazine, Benadryl, Toradol. 2048: Patient is feeling better pain 6 out of 10, to be awakened from sleep upon entering room. Patient states that she is feeling anxious which may be from the Compazine or Benadryl. She reports her headache has improved. Patient is alert and oriented upon discharge discussed home care and strict return instructions, verbalized understanding. Her symptoms have improved prior to discharge. Patient given Zofran prescription. HPI General Mode of arrival: ambulatory . Date/Time Provider Initiated Documentation: 03/26/20 19:34 . Limitations to Documentation: no limitations . Information obtained by: patient . HPI Narrative: 69-year-old female presents to the ED with chief complaint of headache. She reports that headache began yesterday, has continued throughout the day associated with nausea, no vomiting, photosensitivity much sensitivity to sound. Denies any recent head trauma, no weakness or tingling noted to extremities. Denies any blurry vision or double vision. Has taken Tylenol with little to no help. Does have a history of migraines and reports that this is similar to previous episodes. Related Data Home Medications Medication Instructions Recorded Confirmed citalopram 40 mg PO BID 12/06/12 03/26/20 albuterol sulfate [Ventolin HFA] 1 puff INHALATION Q4H PRN PRN 10/27/18 03/26/20 ondansetron HCl [Zofran] 4 mg PO Q8H PRN #7 tab 03/26/20 pantoprazole [Protonix] 40 mg PO DAILY 03/26/20 03/26/20 Previous Rx's Medication Instructions Recorded ondansetron HCl [Zofran] 4 mg PO Q8H PRN #7 tab 03/26/20 Allergies Allergy/AdvReac Type Severity Reaction Status Date / Time Penicillins Allergy Intermediate Hives Unverified 06/10/19 08:12 tetracycline [Tetracycline] Allergy Intermediate hive Unverified 06/10/19 08:12 meclizine Allergy Unknown Unverified 06/10/19 08:12 General Stated Complaint: Headache JOY: 3 Review of Systems Narrative: Constitutional: Negative for weight loss, alert and oriented, well groomed, normal body habitus, appears comfortable. HEENT: Denies trauma, blurry vision, nasal discharge, sore throat, trouble swallowing. Chest: Denies chest pain, palpitations, irregular rhythm, hypertension. Respiratory: Denies Shortness of breath, cough, hemoptysis. GI: Denies abdominal pain, nausea, vomiting, diarrhea, constipation. : Denies dysuria, hematuria, flank pain, rectal bleeding. Neuro: Denies dizziness, blurry vision, weakness, syncope, or facial numbness. Positive posterior headache which she reports is typical migraine headache. Does have a history of migraines. Hematologic: Denies easy bruising, intolerance to heat or cold, hair loss. 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 Vaginal hysterectomy Social History Smoking/Tobacco Use Status: Former Tobacco Use Smoking risk assessment performed?: Yes Alcohol Intake: never Drug use: Never Do you feel safe at home: Yes Do you feel safe in your relationship?: Yes Exam Narrative Exam Narrative: Constitutional: Alert and oriented x3. Appears stated age. Normal body habitus. Head: Normocephalic, no trauma. Eyes: Pupils PERRLA, Red reflex noted, EOM's intact. Eyelids symmetrical without lesions, discharge, or swelling. ENT: Bilateral TM's WNL, External ear normal to inspection, no mastoid TTP, swelling, or erythema, Nasal turbinates WNL, no nasal discharge. Normal dentition, Posterior pharynx WNL, no exudate. Chest: RRR, Normal S1, S2, distal pulses intact. Resp: Lungs clear to auscultation bilaterally, no wheezes, rales, or rhonchi. Musculoskeletal: Normal gait, 5/5 strength to all four extremities. Skin: No suspicious rashes or lesions. Capillary refill less than 2 sec. Neurologic: Cranial nerves II-XII intact. Alert and oriented x 3. DTR's intact. No facial droop no slurred speech, specialized language instructor are equal all extremities bilaterally. Hematologic/Lymphatic: No ecchymosis, no lymphadenopathy. Course Vital Signs Vital signs: Vital Signs Temperature 36.5 C 03/26/20 19:39 Pulse 68 03/26/20 19:39 Blood Pressure 181/76 H 03/26/20 19:39 Pulse Oximetry 98 03/26/20 19:39 Temperature 36.5 C 03/26/20 19:39 Temperature Source Temporal Artery Scan 03/26/20 19:39 Pulse 68 03/26/20 19:39 Respiratory Effort 03/26/20 19:39 Blood Pressure 181/76 H 03/26/20 19:39 Pulse Oximetry 98 03/26/20 19:39 Oxygen Delivery Method Room Air 03/26/20 19:39 Oxygen Flow Rate 0 03/26/20 19:39 Pain Level 10 03/26/20 19:39
[2020-03-26 19:52] LABS: Abs Immature Grans 0.03 10^3/uL (0.0-0.06); Absolute Basophil Count 0.05 10^3/uL (0.0-0.2); Absolute Eosinophil Count 0.21 10^3/uL (0.0-0.7); Absolute Lymphocyte Count 2.88 10^3/uL (1.2-3.4); Absolute Monocyte Count 0.86 10^3/uL (0.1-0.8); Basophils % 0.7; Eosinophils % 2.8; HCT 40.7 % (36.0-46.0); HGB 13.3 g/dL (11.2-15.7); Immature Grans % 0.4; Lymphocytes % 38.8; MCH 28.9 pg (27.0-33.0); MCHC 32.7 % (32.0-36.0); MCV 88.3 fL (80-95); MPV 9.4 fL (8.0-11.0); Monocytes % 11.6; Neutrophils % 45.7; Nucleated RBC 0 %; Platelet Count 384 10^3/uL (130-400); RBC 4.61 10^6/uL (3.93-5.22); RDW 13.2 % (11.7-14.6); RDW-SD 42.2 fL; WBC 7.43 10^3/uL (4.4-10.8)
[2020-03-26] MEDS: Normal Saline 1,000 ML 1000 ML IV (19:53)
[2020-03-26] MEDS: Ketorolac 30 MG/ML VIAL IVP (19:53)
[2020-03-26] MEDS: Prochlorperazine 10 MG/2 ML VIAL IVP (19:54)
[2020-03-26] MEDS: diphenhydrAMINE 50 MG/ML VIAL 25 MG IVP (19:56)
[2020-03-26 20:27] LABS: ALT 49 U/L (14-59); AST 38 U/L (15-37); Albumin 3.5 g/dL (3.4-5.0); Alkaline Phosphatase 78 U/L (46-116); Anion Gap 9.3 mmol/L (3-11); BUN 19 mg/dL (7-18); Bilirubin, Total 0.2 mg/dL (0.2-1.0); CO2 26.7 mmol/L (21.0-32.0); CREATININE 1.04 mg/dL (0.55-1.02); Calcium 8.5 mg/dL (8.5-10.1); Chloride 103 mmol/L (98-107); Estimated GFR 52.86 (mL/min/1.73m2); Glucose 102 mg/dL (74-106); Potassium 4.2 mmol/L (3.5-5.1); Sodium 139 mmol/L (136-145)
[2020-03-26 21:12] VITALS: BP 167/93; PULSE 66; O2SAT 97
== END 2020-03-26 21:25 | disposition home or self-care (01) ==
PROVIDERS: Emergency Provider Registered Nurse Emergency; PCP Family Medicine
DX: G43.809 Other migraine, not intractable, without status migrainosus (principal); R11.0 Nausea
CPT/HCPCS: 36415; 80053; 96361; 96374; 96375; 99284; 85025; J0780; J1200; J1885

== ENCOUNTER 2021-03-03 11:51 | Outpatient (REF) | payer OTHER, SELFPAY ==
[2021-03-03 14:21] LABS: ALT 82 U/L (14-59); AST 56 U/L (15-37); Albumin 3.7 g/dL (3.4-5.0); Alkaline Phosphatase 65 U/L (46-116); Anion Gap 9.9 mmol/L (3-11); BUN 22 mg/dL (7-18); Bilirubin, Total 0.3 mg/dL (0.2-1.0); CO2 25.1 mmol/L (21.0-32.0); Calcium 8.8 mg/dL (8.5-10.1); Calculated LDL 120 mg/dL (<100); Chloride 106 mmol/L (98-107); Cholesterol 199 mg/dL (<200); Estimated GFR 55.14 (mL/min/1.73m2); Glucose 92 mg/dL (74-106); HDL Cholesterol 59 mg/dL (40-60); Potassium 5.1 mmol/L (3.5-5.1); Sodium 141 mmol/L (136-145); Total Protein 6.8 g/dL (6.4-8.2); Triglyceride 102 mg/dL (<150)
== END 2021-03-03 11:52 | disposition home or self-care (01) ==
LOC: NCHCN 11:51
PROVIDERS: PCP Family Medicine; Visit Provider Family Medicine
DX: I63.89 Other cerebral infarction (principal); R42 Dizziness and giddiness; R10.84 Generalized abdominal pain; Z00.00 Encounter for general adult medical examination without abnormal findings
CPT/HCPCS: 80053; 80061

== ENCOUNTER 2021-03-18 01:03 | Outpatient (CLI) | payer OTHER, SELFPAY ==
--- NOTE | 2021-03-18 | DI.US_ITS ---
Exam(s) US ABDOMEN EXAM: US ABDOMEN CLINICAL HISTORY: ELEVATED LFT'S,R79.89 TECHNIQUE: Ultrasound of complete upper abdomen performed using standard protocol. COMPARISON: CT CT ABDOMEN PELVIS W from 01/21/2020 FINDINGS: There is no ascites evident. LIVER: Liver is hyperechoic indicating steatosis. No discrete focal hepatic lesions identified. GALLBLADDER/BILIARY: There are no gallstones. No gallbladder wall edema nor pericholecystic fluid. The common hepatic duct isnot dilated, measuring 2-3mm at the level of delores hepatis. PANCREAS: There is a 5 x 6 mm peau echo acute area in pancreatic head, possibly significant. Does no t appear to be a vessel despite being in the region of the gastroduodenal artery. SPLEEN: The spleen is not enlarged and there are no intrasplenic lesions evident. KIDNEYS:Kidneys exhibit normal size with no evidence of solid mass, calculus, nor hydronephrosis. No cortical cysts evident. ABDOMINAL AORTA: There is no evidence of abdominal aortic aneurysm. IVC: Normal diameter where visualized. IMPRESSION: 1. No evidence of cholelithiasis nor dilatation of the biliary tree. 2. Small hypoechoic 5 x 6 millimeter area in the pancreatic head. Contrast infused CT scan is recom mended rule out significant mass at this level. 3. Liver is hyperechoic indicating steatosis. No discrete focal hepatic lesions identified. There is no ascites. DATA REPOSITORY:
== END 2021-03-18 01:23 ==
PROVIDERS: PCP Family Medicine; Visit Provider Family Medicine
DX: R06.09 Other forms of dyspnea (principal); R79.89 Other specified abnormal findings of blood chemistry; R93.89 Abnormal findings on diagnostic imaging of other specified body structures; K76.0 Fatty (change of) liver, not elsewhere classified
CPT/HCPCS: 76700

== ENCOUNTER 2021-03-25 01:28 | Outpatient (CLI) | payer OTHER, SELFPAY ==
--- NOTE | 2021-03-25 08:45 | DI.NM_ITS ---
APPROVED REPORT Exam: Pharmacologic Patient Location: Out-Patient Room/Bed: Stress Nurse: Arabella Pleitez RN Ordering Provider:CYNTHIAVioleta BAKER, Contact Number: [phone] BMI: 31.88 Baseline Rhythm: Sinus Rhythm Medical History Medical History: Cerebral palsy, hemiplegic, fatigue, depression, obesity Cardiac Medications: Protonix, ventolin inhaler Allergies: Penicillins, tetracycline, meclizine Cardiac Risk Factors: Family hx, obesity, smoker (former) Previous Cardiac Procedures: None Pretest Chest Pain Characteristics: Mild SOB Exercise History: None Physical Disabilities: Legs (gait) Lung Sounds: Clear to auscultation Heart Sounds: Regular Stress Test Details Test: Exercise stress converted to pharmacologic stress due to failure to obtain a diagnostic stress test. Reason for pharmacologic stress test: changed from exercise stress test due to inability to reach t arget heart rate. Nuclear Acquisition: Rest Tc-99m/Stress Tc-99m 1 day Rest Isotope: Tc-99m Sestamibi. Dose: 11.0 Date: 03/25/2021 Injection Time: 0900 Stress Isotope: Tc-99m Sestamibi. Dose: 37.0 Date: 03/25/2021 Injection Time: 1137 HR Resting HR Supine: 62 bpm Max Heart Rate (APMHR): 152.814429 bpm Resting HR Standin bpm Target HR (85% APMHR): 129.383665 bpm Max HR Achieved: 108 bpm % of APMHR: 71.05 Recovery HR: 75 bpm HR response to stress: Normal HR response to stress BP Resting BP Supine: 146/90 mmHg Resting BP Standin/78 mmHg Max BP: 144/88 mmHg Recovery BP: 136/72 mmHg BP response to stress: Normal blood pressure response to stress. ECG Resting ECG: Sinus Rhythm Ectopy: None Stress ECG: Sinus Tachycardia ST Change: No significant ST segment changes noted Arrhythmia: None Recovery ECG: Sinus Rhythm Recovery ST Change: No significant ST segment changes noted Recovery Arrhythmia: None Clinical Reason for Termination: Fatigue Stress Symptoms: General Fatigue, Dyspnea Exercise duration: 5 min04 sec Highest Stage Reached: Stage 1: 1.7 mph at 10% grade. Exercise capacity: 4.65 METs Rate Pressure Product: [id number] Stress ECG Conclusion 1. This was a myocardial perfusion imaging study combining pharmacologic and low level stress 2. The resting electrocardiogram was normal 3. Patient was able to exercise to a workload of 4.65 METS. She achieved 71% of predicted heart rate for age 4. Echocardiographically the test was nondiagnostic due to inadequate heart rate Stress Test Summary STAGE Time (mins) Speed (mph) Grade (%) HR BP SYMPTOMS METS Supine 62 146/90 Standing 70 138/78 Mild SOB baseline, SpO2 98% 1 3 1.7 10 101 Severe SOB, SpO2 98% 4.6 1 min post Lexiscan injection 108 144/88 Dyspnea improving, SpO2 98% 3 min post Lexiscan injection 88 142/76 Symptoms resolved, SpO2 98% 6 min post Lexiscan injection 75 136/72 SpO2 98% Pt exercised in Mat protocol for 2:56 seconds then test was converted to pharmacologic. Pt ambulate d at 1.0mph and 0% grade while lexiscan injection was administered and for approximately [address] injection. Pt experienced severe SOB during walking Lexiscan. Symptoms resolved during recovery p eriod. MPI Conclusion No evidence of ischemia or prior myocardial infarction EF 85% Radiologist Interpretation Radiologist agrees with Crystalizer Tender's Interpretation. Radiologist Interpretation by: Angie Jonas MD Interpretation Date/Time: 03/26/2021 15:35:35
[2021-03-25] MEDS: Regadenoson 0.4 MG/5 ML SYR IVP (10:39)
== END 2021-03-25 01:48 ==
PROVIDERS: PCP Family Medicine; Visit Provider Family Medicine
DX: R06.09 Other forms of dyspnea (principal); Z82.49 Family history of ischemic heart disease and other diseases of the circulatory system; E66.9 Obesity, unspecified; Z87.891 Personal history of nicotine dependence; R94.39 Abnormal result of other cardiovascular function study
CPT/HCPCS: 78452; 93016; 93018; 93017; J2785

== ENCOUNTER 2021-03-26 02:16 | Outpatient (CLI) | payer OTHER, SELFPAY ==
[2021-03-26] MEDS: Omnipaque 350 MG/ML 100 ML BTL IJ (14:06)
[2021-03-26] MEDS: Normal Saline - Diluent 50 ML VIAL IV (14:06)
[2021-03-26] MEDS: Normal Saline Flush 10 ML SYR IVP (14:07)
--- NOTE | 2021-03-26 14:08 | DI.CT_ITS ---
Exam(s) CT ABDOMEN WO/W EXAM: CT ABDOMEN WO/W CLINICAL HISTORY: F/U ABNL US,ABNL PANCREAS,. TECHNIQUE: Imaging Protocol: Axial computed tomography images with coronal and sagittal reformatted images were created and reviewed CONTRAST MATERIAL: Intravenous: Omnipaque 350 Contrast volume:100 ml Contrast route:IV - Oral: yes COMPARISON: CT ABD PELVIS WITH CONTRAST from 11/26/2015 US US ABDOMEN from 03/18/2021 FINDINGS: ABDOMEN: Lung Bases: A few scattered tiny nodules are seen, unchanged from 2016. Liver: Fatty infiltration.. No measurable mass. Gallbladder and biliary tract: No radiodense calculus or dilation. Pancreas: Normal density, no abnormal calcifications or inflammatory process. No mass or cyst visible . Appearance of pancreas unchanged when compared with 2016. Spleen: Normal. Kidneys: Normal size, contour and axis. No radiodense stones or obstructive uropathy. No masses seen. Adrenal glands: No masses seen. Abdominal Aorta: Abdominal portion non-dilated. Lymph nodes: Within normal limits. Bones: Unremarkable for age. IMPRESSION: No evidence of pancreatic mass, cyst or inflammation. RADIATION DOSE DELIVERED: 1,606.38mGy.cm Total DLP DATA REPOSITORY: All CT scans at this facility are submitted to the National Radiology Data Registry (NRDR) Dose Index Registry (DIR) with the [employer] (ACR). RADIATION OPTIMIZATION: All CT scans at this facility use at least one of these dose optimization te chniques: automated exposure control; mA and/or kV adjustment per patient size (includes targeted exa ms where dose is matched to clinical indication); or iterative reconstruction.
== END 2021-03-26 02:36 ==
PROVIDERS: PCP Family Medicine; Visit Provider Family Medicine
DX: K76.89 Other specified diseases of liver (principal); R93.89 Abnormal findings on diagnostic imaging of other specified body structures
CPT/HCPCS: 74170; J3490

== ENCOUNTER 2021-04-07 13:31 | Outpatient (REF) | payer OTHER, SELFPAY ==
[2021-04-08 18:08] LABS: COVID-19 RT-PCR UVMMC Result Negative (Negative)
== END 2021-04-07 13:32 | disposition home or self-care (01) ==
LOC: NCHCN 13:31
PROVIDERS: PCP Family Medicine; Visit Provider Family Medicine
DX: Z20.822 Contact with and (suspected) exposure to COVID-19 (principal)
CPT/HCPCS: U0003; U0005

== ENCOUNTER 2022-01-08 14:07 | Emergency (ER) | payer OTHER, SELFPAY ==
[2022-01-08] VITALS (74 sets, daily range): BP systolic 135–156; BP diastolic 78–94; PULSE 70–82; RESP 11–29; TEMP 37–37.6; O2SAT 87–99
--- NOTE | 2022-01-08 14:15 | RT.EKG_ITS ---
APPROVED REPORT Exam: Resting ECG Reason for Exam: sob Patient Location: E HR:78 bpm ECG Measurements Heart Rate 78 AXIS MA 126 P 52 QRSd 87 QRS 65 QT 382 T 35 QTc 436 Conclusion Sinus rhythm...normal P axis, V-rate 60- 99 Sinus. No STEMI. I have reviewed and interpreted ECG and agree with software generated interpretation.
--- NOTE | 2022-01-08 14:30 | DI.RAD_ITS ---
Exam(s) XR PORTABLE CHEST AP EXAM: XR PORTABLE CHEST AP CLINICAL HISTORY: cough, sob, r/o acute disease. TECHNIQUE: 2D digital imaging was performed. COMPARISON: CR XR CHEST 2V PA LATERAL from 06/10/2019 FINDINGS: LUNGS: Clear. No pleural abnormality seen. HEART: Normal. MEDIASTINUM: Normal. OTHER FINDINGS: None. IMPRESSION: No acute pulmonary findings. DATA REPOSITORY: RADIATION DOSE DELIVERED: Total DLP
--- NOTE | 2022-01-08 14:35 | ED.GENADUL_ITS ---
Discharge Plan Disposition Patient Disposition: HOME Condition: Stable Discharge Details Clinical Impression: COVID-19 Primary Care Provider: Isabel Arreaga ED Provider: Kelly Holly Home Meds and New Rx's Prescriptions: Continued citalopram 20 MG tablet 40 mg PO BID albuterol sulfate [Ventolin HFA] 90 mcg/actuation Hfa Aerosol Inhaler 1 puff Inhalation Q4H PRN PRN Discharge Instructions Instructions: COVID-19 (Coronavirus Disease 2019) (ED) Additional Instructions: Your lab tests today revealed that you are positive for the COVID-[address] scan today did not show any evidence of acute disease or blood clot. You were given a monoclonal antibody infusion for your COVID-19 diagnosis here in the emergency department to prevent progression to severe illness or . Drink plenty of fluids and get plenty of rest. Alternate tylenol and motrin as needed and directed for pain. Follow-up with your primary care doctor in 1 week. Return to the emergency department with any worsening or new concerning symptoms. Discharge Data Discharge Physician: Kelly Holly Medical Decision Making 1415 -- 71-year-old female with a history of chronic fatigue, depression, irritable bowel syndrome, migraines, seizures, TIA and congenital cerebral palsy with hemiplegia presents for fever, sore throat, cough and intermittent shortness of breath for the past few days. Patient appears fatigued and uncomfortable but nontoxic. She demonstrates no signs of respiratory distress. Her oxygen saturation is 98% on room air. She is afebrile. Lung sounds are clear bilaterally. Differential diagnosis includes COVID, pneumonia or other viral illness. Considering her age and history, will obtain screening labs, IV fluid hydration, cxr and fluvid. 1615 -- COVID positive. Labs and imaging reviewed. D-dimer elevated above age- adjusted cutoff. Lactate 1.5. Normal white blood cell count. Troponin negative. Chest x-ray negative for acute disease. Will refer for CT chest. 1845 -- CT chest negative for PE. Patient reassessed and she remains hemodynamically stable. She was given the monoclonal antibody infusion considering her age and medical history. Patient is requesting to go home. As she is not requiring any supplemental oxygen and the remainder of her lab work is reassuring, I feel that this is reasonable at this time. Disposition decision made weighing the risks and benefits of hospitalization versus outpatient treatment, the risk for further decompensation, and the patient's wishes. Advised to follow up with the primary care doctor for re-evaluation. Usual and customary return precautions given prior to discharge. Medical Records Medical records reviewed: Yes I reviewed the patient's medical records. Imaging Data Radiologic Study: Radiologist's impression: CTA Chest With Contrast Exam date and time: 01/08/2022 5:52 PM Age: 71 years old Clinical indication: Pain; Other: Shortness of breath, elevated d dimer, R/O pe; Patient HX: Covid + TECHNIQUE: Imaging protocol: Computed tomographic angiography of the chest with contrast. 3D rendering (Not supervised by radiologist): MIP and/or 3D reconstructed images were created by the technologist. Contrast material: OMNIPAQUE 350; Contrast volume: 100 ml; Contrast route: INTRAVENOUS (IV);? COMPARISON: XR PORTABLE CHEST AP 01/08/2022 3:32 PM FINDINGS: Pulmonary arteries: Normal. No pulmonary emboli. Aorta: Unremarkable. No aortic aneurysm. No aortic dissection. Lungs: Unremarkable. No consolidation. No masses. Pleural spaces: Unremarkable. No pneumothorax. No pleural effusion. Heart: Unremarkable. No cardiomegaly. No pericardial effusion. Lymph nodes: Unremarkable. No enlarged lymph nodes. Bones/joints: Unremarkable. No acute fracture. Soft tissues: Unremarkable. IMPRESSION: No evidence for pulmonary embolus. XR Chest Exam date and time: 01/08/2022 3:32 PM Age: 71 years old Clinical indication: Other: Cough, SOB, R/O acute disease TECHNIQUE: Imaging protocol: Radiologic exam of the chest. Views: 1 view. Other technique: Portable exam. COMPARISON: CR XR CHEST 2V PA LATERAL 06/10/2019 8:53 AM FINDINGS: Lungs: Unremarkable. No consolidation. Pleural spaces: Unremarkable. No pleural effusion. No pneumothorax. Heart/Mediastinum: Unremarkable. No cardiomegaly. Bones/joints: Unremarkable. IMPRESSION: No evidence for acute abnormality in the chest. Lab Data Lab results reviewed: Yes I reviewed the patient's lab results. Labs: 01/08/22 15:05 Blood Blood Culture - Pending 01/08/22 14:45 Blood Blood Culture - Pending Laboratory Tests Range/Units 01/08/22 01/08/22 01/08/22 14:34 14:35 14:45 WBC (4.4-10.8) 10^3/uL RBC (3.93-5.22) 10^6/uL Hgb (11.2-15.7) g/dL Hct (36.0-46.0) % MCV (80-95) fL MCH (27.0-33.0) pg MCHC (32.0-36.0) % RDW (11.7-14.6) % Plt Count (130-400) 10^3/uL MPV (8.0-11.0) fL Immature Gran % Neutrophils % Lymphocytes % Monocytes % Eosinophils % Basophils % Nucleated RBC % (0.0-0.3) % Absolute Neutrophils (1.2-6.7) 10^3/uL Absolute Lymphocytes (1.2-3.4) 10^3/uL Absolute Monocytes (0.1-0.8) 10^3/uL Absolute Eosinophils (0.0-0.7) 10^3/uL Absolute Basophils (0.0-0.2) 10^3/uL D-Dimer (<500) ng/mlFEU VBG Lactate (0.6-1.4) mmol/L Sodium (136-145) mmol/L 136 Potassium (3.5-5.1) mmol/L 3.9 Chloride (98-107) mmol/L 101 Carbon Dioxide (21.0-32.0) mmol/L 25.1 Anion Gap (3-11) mmol/L 9.9 BUN (7-18) mg/dL 16 Creatinine (0.55-1.02) mg/dL 1.0 Estimated GFR/1.73 m2 (mL/min/1.73m2) 54.97 Glucose (74-106) mg/dL 99 Calcium (8.5-10.1) mg/dL 8.8 Magnesium (1.8-2.4) mg/dL 2.1 Total Bilirubin (0.2-1.0) mg/dL 0.3 AST (15-37) U/L 37 ALT (14-59) U/L 56 Alkaline Phosphatase (46-116) U/L 54 Troponin I (<or=60) ng/L < 50 Total Protein (6.4-8.2) g/dL 7.5 Albumin (3.4-5.0) g/dL 3.4 COVID-19 Source Cancelled Not Applicable SARS-CoV-2 (PCR) Cancelled Positive A Influenza Type A (PCR) (Negative) Negative Influenza Type B (PCR) (Negative) Negative RSV (PCR) (Negative) Negative Range/Units 01/08/22 01/08/22 01/08/22 14:45 14:45 14:45 WBC (4.4-10.8) 10^3/uL 9.03 RBC (3.93-5.22) 10^6/uL 4.73 Hgb (11.2-15.7) g/dL 14.1 Hct (36.0-46.0) % 41.3 MCV (80-95) fL 87 MCH (27.0-33.0) pg 29.8 MCHC (32.0-36.0) % 34.1 RDW (11.7-14.6) % 13.0 Plt Count (130-400) 10^3/uL 305 MPV (8.0-11.0) fL 9.9 Immature Gran % 0.3 Neutrophils % 71.5 Lymphocytes % 17.1 Monocytes % 10.3 Eosinophils % 0.6 Basophils % 0.2 Nucleated RBC % (0.0-0.3) % 0.0 Absolute Neutrophils (1.2-6.7) 10^3/uL 6.46 Absolute Lymphocytes (1.2-3.4) 10^3/uL 1.54 Absolute Monocytes (0.1-0.8) 10^3/uL 0.93 H Absolute Eosinophils (0.0-0.7) 10^3/uL 0.05 Absolute Basophils (0.0-0.2) 10^3/uL 0.02 D-Dimer (<500) ng/mlFEU 822 H VBG Lactate (0.6-1.4) mmol/L 1.5 H Sodium (136-145) mmol/L Potassium (3.5-5.1) mmol/L Chloride (98-107) mmol/L Carbon Dioxide (21.0-32.0) mmol/L Anion Gap (3-11) mmol/L BUN (7-18) mg/dL Creatinine (0.55-1.02) mg/dL Estimated GFR/1.73 m2 (mL/min/1.73m2) Glucose (74-106) mg/dL Calcium (8.5-10.1) mg/dL Magnesium (1.8-2.4) mg/dL Total Bilirubin (0.2-1.0) mg/dL AST (15-37) U/L ALT (14-59) U/L Alkaline Phosphatase (46-116) U/L Troponin I (<or=60) ng/L Total Protein (6.4-8.2) g/dL Albumin (3.4-5.0) g/dL COVID-19 Source SARS-CoV-2 (PCR) Influenza Type A (PCR) (Negative) Influenza Type B (PCR) (Negative) RSV (PCR) (Negative) ECG Data Attestation: I personally reviewed and interpreted this ECG (s) as follows: Interpretation: Rate of 78, sinus, normal axis, no STEMI HPI General Mode of arrival: ambulatory . Date/Time Provider Initiated Documentation: 01/08/22 14:08 . Limitations to Documentation: no limitations . Information obtained by: patient . HPI Narrative: Patient is a 71-year-old female with a history of chronic fatigue, irritable bowel syndrome, migraine, seizure disorder, depression, TIA, congenital cerebral palsy with hemiplegia presents for fever, sore throat, cough and shortness of breath for the past few days. Patient states her symptoms started with sore throat and then progressed to cough with chest congestion. She states she has been unable to bring up any sputum. She admits to occasional shortness of breath. She states she has had a low-grade fever with T-max of 100.4. She has not taken medication for her symptoms today. She states she recently took an at home COVID test which was negative. Related Data Home Medications Medication Instructions Recorded Confirmed citalopram 20 mg tablet 40 mg PO BID 12/06/12 01/08/22 albuterol sulfate 90 mcg/actuation 1 puff inhalation Q4H PRN PRN 10/27/18 03/26/20 aerosol inhaler (Ventolin HFA) Allergies Allergy/AdvReac Type Severity Reaction Status Date / Time Penicillins Allergy Intermediate Hives Unverified 06/10/19 08:12 tetracycline [Tetracycline] Allergy Intermediate hive Unverified 06/10/19 08:12 meclizine Allergy Unknown Unverified 06/10/19 08:12 General Stated Complaint: RespSymp JOY: 2 Review of Systems All systems reviewed & are unremarkable except as noted in HPI and below Constitutional Constitutional: Denies chills, Denies excessive sweating, Denies fatigue, Denies fever(s), Denies weakness and Denies weight loss Eyes Eyes: Reports system reviewed and no additional complaints, except as documented and Denies blurry vision ENT Ears, Nose, Mouth, and Throat: Denies vertigo, Denies dizziness, Denies otalgia, Reports nasal congestion, Reports sore throat and Denies throat swelling Cardiovascular Cardiovascular: Denies chest pain, Denies syncope, Denies rapid heart rate and Reports dyspnea Respiratory Respiratory: Denies chest congestion, Reports cough, Denies pain on inspiration and Reports dyspnea Gastrointestinal Gastrointestinal: Denies abdominal pain, Denies diarrhea and Denies vomiting Genitourinary Genitourinary: Denies hematuria, Denies dysuria and Denies flank pain Musculoskeletal Musculoskeletal: Denies back pain and Denies joint swelling Integumentary/Breasts Skin/Breast: Denies lesions and Denies rash Neurologic Neurologic: Denies behavioral changes, Denies confusion, Denies vertigo, Denies dizziness, Denies syncope, Denies localized weakness and Denies weakness Psychiatric Psychiatric: Denies behavioral changes, Denies confusion and Denies depression Endocrine Endocrine: Denies excessive sweating and Denies fatigue Hematologic/Lymphatic Hematologic/Lymphatic: Denies easy bruising and Denies lymphadenopathy Allergic/Immunologic Allergic/Immunologic: Denies throat swelling PFSH All Active Problems (Updated 01/08/22 @ 19:12 by Kelly Holly DO) COVID-19 (Acute) Sensorineural hearing loss of both ears (Acute) Ruptured appendicitis (Acute) Medical History (Updated 01/08/22 @ 19:12 by Kelly Holly DO) Cerebral palsy hemiplegic, congenital Chronic Fatigue Depression Disability Irritable bowel syndrome Malrotation Bowel migraine, unspec., not intractable Surgical History Appendectomy Colonoscopy - MAC (04/28/17) 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 Vaginal hysterectomy Social History Smoking/Tobacco Use Status: Former Tobacco Use Smoking risk assessment performed?: Yes Alcohol Intake: never Drug use: Never Do you feel safe at home: Yes Do you feel safe in your relationship?: Yes Exam Const General: cooperative Orientation: alert, awake and oriented x3 HENMT Head: normal to inspection Ears: hearing grossly normal bilaterally, external ears normal and TM's normal bilaterally General nose exam: external nose normal Face and sinus: normal facial exam Mouth: oral mucosae normal Teeth and gingiva: dentition normal Throat: posterior oropharynx normal Eyes General: appearance normal, both eyes and all related structures Eyelids: eyelids normal Pupils: PERRL EOM: EOM intact bilaterally Neck Neck: normal visual inspection Lymphatic: no lymphadenopathy noted Chest Chest: normal inspection of the chest Resp Effort & Inspection: normal respiratory effort and able to speak in complete sentences Auscultation: clear to auscultation bilaterally Cardio Rate: regular rate Rhythm: regular rhythm GI Inspection: normal to inspection Palpation: soft, not firm, no guarding, no hepatosplenomegaly, no masses and nontender Auscultation: normal bowel sounds Back/Spine/Pelvis Back: no CVA tenderness Skin General skin exam: no rashes or lesions noted Neuro General: patient alert and patient awake Cognition: normal cognition Speech: speech normal Gait: normal gait Motor: muscle tone normal throughout Sensory Exam: no sensory deficits noted Extrem General: normal to inspection, full ROM and capillary refill normal Psych Appearance: grossly normal Mental Status: mental status grossly normal Speech and Movement: speech and movement normal Affect: normal affect Thought Process: normal Course Vital Signs Vital signs: Vital Signs Temperature 98.6 F 01/08/22 14:12 Pulse 82 01/08/22 14:12 Respiratory Rate 24 01/08/22 14:12 Blood Pressure 135/86 01/08/22 14:12 Pulse Oximetry 98 01/08/22 14:12 Temperature 98.6 F 01/08/22 14:12 Temperature Source Temporal Artery Scan 01/08/22 14:12 Pulse 82 01/08/22 14:12 Respiratory Rate 24 01/08/22 14:12 Blood Pressure 135/86 01/08/22 14:12 Blood Pressure Position Sitting 01/08/22 14:12 Pulse Oximetry 98 01/08/22 14:12 Oxygen Delivery Method Room Air 01/08/22 14:12 Oxygen Flow Rate 0 01/08/22 14:12
[2022-01-08] MEDS: Normal Saline 250 ML 500 ML IV (14:45)
[2022-01-08 14:51] LABS: Lactate 1.5 mmol/L (0.6-1.4)
[2022-01-08 14:55] LABS: Abs Immature Grans 0.03 10^3/uL (0.0-0.06); Absolute Basophil Count 0.02 10^3/uL (0.0-0.2); Absolute Eosinophil Count 0.05 10^3/uL (0.0-0.7); Absolute Lymphocyte Count 1.54 10^3/uL (1.2-3.4); Absolute Monocyte Count 0.93 10^3/uL (0.1-0.8); Absolute Neutrophil Count 6.46 10^3/uL (1.2-6.7); Basophils % 0.2; Eosinophils % 0.6; HCT 41.3 % (36.0-46.0); HGB 14.1 g/dL (11.2-15.7); Immature Grans % 0.3; Lymphocytes % 17.1; MCH 29.8 pg (27.0-33.0); MCHC 34.1 % (32.0-36.0); MCV 87 fL (80-95); MPV 9.9 fL (8.0-11.0); Monocytes % 10.3; Neutrophils % 71.5; Platelet Count 305 10^3/uL (130-400); RBC 4.73 10^6/uL (3.93-5.22); RDW-SD 41.4 fL; WBC 9.03 10^3/uL (4.4-10.8)
[2022-01-08 15:13] LABS: ALT 56 U/L (14-59); AST 37 U/L (15-37); Albumin 3.4 g/dL (3.4-5.0); Alkaline Phosphatase 54 U/L (46-116); Anion Gap 9.9 mmol/L (3-11); BUN 16 mg/dL (7-18); Bilirubin, Total 0.3 mg/dL (0.2-1.0); CO2 25.1 mmol/L (21.0-32.0); Calcium 8.8 mg/dL (8.5-10.1); Chloride 101 mmol/L (98-107); Estimated GFR 54.97 (mL/min/1.73m2); Glucose 99 mg/dL (74-106); Magnesium 2.1 mg/dL (1.8-2.4); Potassium 3.9 mmol/L (3.5-5.1); Sodium 136 mmol/L (136-145); Total Protein 7.5 g/dL (6.4-8.2); Troponin I < 50 ng/L (<or=60)
[2022-01-08 15:22] LABS: D-Dimer 822 ng/mlFEU (<500)
--- NOTE | 2022-01-08 15:30 | DI.CT_ITS ---
Exam(s) CT CHEST PE CTA EXAM: CT CHEST PE CTA CLINICAL HISTORY: shortness of breath, elevated d dimer, r/o PE. TECHNIQUE: Imaging Protocol: Axial CT angiography was performed with multi-slice acquisition and mu lti-planar and/or 3D reconstructions. CONTRAST MATERIAL: Intravenous: Omnipaque 350 Contrast volume:structured data in ml COMPARISON: CT CT ABDOMEN WO/W from 03/26/2021 FINDINGS: CT angiography of the chest was performed with intravenous infusion of 100 cc of Omnipaque 350. The lungs are predominantly clear with an incidental 4 millimeter right basilar noncalcified intrapul monary nodule period. No pleural effusion. Tracheobronchial tree appears intact. No evidence of pulmonary embolic disease. Thoracic aorta is of normal diameter, no thoracic aortic an eurysm or dissection, major branch vessels appear intact. No mediastinal or hilar adenopathy. Images obtained through the upper abdomen show unremarkable appearance of the visualized portions of the liver and spleen. IMPRESSION: Negative CT angiogram of the chest. No evidence of pulmonary embolic disease. RADIATION DOSE DELIVERED: 574.75mGy.cm Total DLP 574.75mGy.cm Total DLP !Error CTDIvol DATA REPOSITORY: All CT scans at this facility are submitted to the National Radiology Data Registry (NRDR) Dose Index Registry (DIR) with the [employer] (ACR). RADIATION OPTIMIZATION: All CT scans at this facility use at least one of these dose optimization te chniques: automated exposure control; mA and/or kV adjustment per patient size (includes targeted exa ms where dose is matched to clinical indication); or iterative reconstruction.
--- NOTE | 2022-01-08 16:08 | DI.VRAD_ITS ---
PROCEDURE INFORMATION: Exam: XR Chest Exam date and time: 01/08/2022 3:32 PM Age: 71 years old Clinical indication: Other: Cough, SOB, R/O acute disease TECHNIQUE: Imaging protocol: Radiologic exam of the chest. Views: 1 view. Other technique: Portable exam. COMPARISON: CR XR CHEST 2V PA LATERAL 06/10/2019 8:53 AM FINDINGS: Lungs: Unremarkable. No consolidation. Pleural spaces: Unremarkable. No pleural effusion. No pneumothorax. Heart/Mediastinum: Unremarkable. No cardiomegaly. Bones/joints: Unremarkable. IMPRESSION: No evidence for acute abnormality in the chest. Dictated and Authenticated by: Emily Lorenz MD. Ordering:LAURYN Mendoza MD
[2022-01-08 16:14] LABS: COVID-19 PCR Positive (Negative); Influenza A PCR Negative (Negative); Influenza B PCR Negative (Negative); RSV PCR Negative (Negative)
[2022-01-08] MEDS: Acetaminophen 325 MG TAB PO (17:11)
[2022-01-08] MEDS: Omnipaque 350 MG/ML 100 ML BTL IJ (18:17)
--- NOTE | 2022-01-08 18:45 | DI.VRAD_ITS ---
PROCEDURE INFORMATION: Exam: CTA Chest With Contrast Exam date and time: 01/08/2022 5:52 PM Age: 71 years old Clinical indication: Pain; Other: Shortness of breath, elevated d dimer, R/O pe; Patient HX: Covid + TECHNIQUE: Imaging protocol: Computed tomographic angiography of the chest with contrast. 3D rendering (Not supervised by radiologist): MIP and/or 3D reconstructed images were created by the technologist. Contrast material: OMNIPAQUE 350; Contrast volume: 100 ml; Contrast route: INTRAVENOUS (IV); COMPARISON: XR PORTABLE CHEST AP 01/08/2022 3:32 PM FINDINGS: Pulmonary arteries: Normal. No pulmonary emboli. Aorta: Unremarkable. No aortic aneurysm. No aortic dissection. Lungs: Unremarkable. No consolidation. No masses. Pleural spaces: Unremarkable. No pneumothorax. No pleural effusion. Heart: Unremarkable. No cardiomegaly. No pericardial effusion. Lymph nodes: Unremarkable. No enlarged lymph nodes. Bones/joints: Unremarkable. No acute fracture. Soft tissues: Unremarkable. IMPRESSION: No evidence for pulmonary embolus. Dictated and Authenticated by: Emily Lorenz MD. Ordering:LAURYN Mendoza MD
[2022-01-08 20:09] LABS: Source Nasopharynx
== END 2022-01-08 19:15 | disposition home or self-care (01) ==
PROVIDERS: Emergency Provider Physician Assistant; PCP Family Medicine
DX: U07.1 COVID-19 (principal); R79.89 Other specified abnormal findings of blood chemistry; G40.909 Epilepsy, unspecified, not intractable, without status epilepticus; Z86.73 Personal history of transient ischemic attack (TIA), and cerebral infarction without residual deficits; Z87.891 Personal history of nicotine dependence
CPT/HCPCS: 36415; 71275; 80053; 87040; 87635; 87637; 93005; 96365; 96366; 99285; Q0222; 71045; 83605; 83735; 84484; 85025; 85379; 93010; J3490

== ENCOUNTER 2022-05-27 08:59 | Emergency (ER) | payer OTHER, SELFPAY ==
[2022-05-27 09:14] VITALS: BP 121/91; PULSE 84; RESP 18; TEMP 36.7; O2SAT 94
== END 2022-05-27 09:54 ==
LOC: ER 09:12
PROVIDERS: PCP Family Medicine
DX: Z53.21 Procedure and treatment not carried out due to patient leaving prior to being seen by health care provider (principal)

== ENCOUNTER 2022-05-30 08:48 | Emergency (ER) | payer OTHER, SELFPAY ==
[2022-05-30] VITALS (21 sets, daily range): BP systolic 132–164; BP diastolic 79–99; PULSE 59–95; RESP 1–25; TEMP 37; O2SAT 96–97
--- NOTE | 2022-05-30 09:00 | RT.EKG_ITS ---
APPROVED REPORT Exam: Resting ECG Reason for Exam: sob Patient Location: E HR:64 bpm ECG Measurements Heart Rate 64 AXIS CO 136 P 19 QRSd 86 QRS 59 QT 413 T 22 QTc 426 Conclusion Sinus rhythm...normal P axis, V-rate 60- 99. Sinus. Normal axis. No STEMI. I have reviewed and interpreted ECG and agree with software generated interpretation.
--- NOTE | 2022-05-30 09:02 | ED.GENADUL_ITS ---
Discharge Plan Disposition Patient Disposition: Home Condition: Improving Discharge Details Clinical Impression: Cough, Dyspnea Primary Care Provider: Isabel Arreaga ED Provider: Kelly Holly Home Meds and New Rx's Prescriptions: New benzonatate 100 mg capsule 100 mg PO TID PRN (Reason: cough) Qty: 10 0RF Continued citalopram 20 MG tablet 40 mg PO BID aspirin 81 mg Tablet 81 mg PO DAILY cholecalciferol (vitamin D3) [Vitamin D3] 10 mcg (400 unit) Capsule 20 mcg PO DAILY Discharge Instructions Instructions: Dyspnea (ED), Acute Cough (ED) Additional Instructions: Your COVID, influenza and RSV test today are negative. Your chest x-ray showed no evidence of acute disease. Since you had improvement of your symptoms after a nebulizer breathing treatment, it is suspected that your symptoms are secondary to an upper respiratory infection. Other possibilities include GERD, allergies or another irritant in the environment. You are being sent home with an albuterol inhaler to use as 2 puffs every 4-6 hours as needed and directed for cough or shortness of breath. You can take the Robitussin with codeine at bedtime to help with coughing at nighttime. A prescription for the cough medication Tessalon Perles has been sent pay[place] ctronically to your pharmacy to take as needed and directed for cough. You have been placed on care management list to arrange for a follow-up appointment with your primary care doctor's office for reevaluation in the next 1 to 2 weeks Return immediately to the emergency department if you develop any worsening or new concerning symptoms such as persistent fevers, worsening shortness of breath, worsening chest or back pain or any other concerns. Discharge Data Discharge Physician: Kelly Holly Medical Decision Making 1216 -- 71-year-old female with a history of chronic fatigue, depression, irritable bowel syndrome, migraines, seizures and congenital cerebral palsy with hemiplegia presents for complaint of cough for 1 week and shortness of breath for the past 3 days. Blood pressure is moderately hypertensive but remainder of vitals within normal limits. Patient appears to be speaking in 3-4 word sentences but oxygen saturation is 98 to 100% during my evaluation. Her lung sounds are clear throughout without wheezing, rhonchi or rales. She has no lower extremity swelling. She localizes her right lateral inferior chest as location of pain but this is nontender without evidence of cellulitis, rash or trauma. She has no CVA tenderness and back is normal to inspection. Differential diagnosis includes COVID, flu, influenza, pneumonia. Also consider GERD, allergies. 1100 --chest x-ray negative. Fluvid negative. Patient reassessed and she feels much better after neb treatment. She states she feels that her cough and shortness of breath is improved. Reassessment of lung sounds clear throughout. Her oxygen saturation is 98% on room air. Patient states she feels comfortable going home. Discussed with patient at length that I do not think her presentation appears consistent with ACS, PE, dissection considering her main complaint of cough. She endorses that the cough is mainly worse at night when she tries to sleep. Discussed other possibilities of GERD, allergies or other irritant in the environment. Will send home with 2 doses of Robitussin with codeine to help with cough at bedtime. She was also given an albuterol inhaler to go and a prescription for Tessalon Perles sent electronically to her pharmacy. Patient also placed on care management list to arrange for an appointment with her primary care doctor's office within the next 1 to 2 weeks for reevaluation. Usual and customary return precautions given prior to discharge. Medical Records Medical records reviewed: Yes I reviewed the patient's medical records. Imaging Data Radiologic Study: Radiologist's impression: XR CHEST 2V PA ? LATERAL CLINICAL HISTORY:? cough, sob, r/o acute disease TECHNIQUE:? 2D digital imaging was performed. COMPARISON:? CT CT CHEST PE CTA from 01/08/2022 FINDINGS: HEART: Normal size.? Aorta: Not dilated. PULMONARY VASCULATURE: Normal. LUNGS: Clear. ? PLEURAL SPACE: No pleural effusion or pneumothorax. BONE:Unremarkable for age.? IMPRESSION: No acute abnormality.? Lab Data Lab results reviewed: Yes I reviewed the patient's lab results. Labs: Laboratory Tests Range/Units 05/30/22 09:28 COVID-19 Source Not Applicable SARS-CoV-2 (PCR) (Negative) Negative Influenza Type A (PCR) (Negative) Negative Influenza Type B (PCR) (Negative) Negative RSV (PCR) (Negative) Negative HPI General Mode of arrival: ambulatory . Date/Time Provider Initiated Documentation: 05/30/22 08:56 . Limitations to Documentation: no limitations . Information obtained by: patient . HPI Narrative: Patient is a 71-year-old female with a history of chronic fatigue, depression, irritable bowel syndrome, migraines, seizures and congenital cerebral palsy with hemiplegia presents for a complaint of cough and shortness of breath for the past week. She states her cough started first and has been dry but feels that it is starting to break up . She states she has been taking Mucinex without relief. She states she has some right-sided chest pain that is worse with coughing. She states she feels shortness of breath with coughing fits and exertion. She denies any known fever, ear pain, sore throat, anterior chest pain, leg swelling. Related Data Home Medications Medication Instructions Recorded Confirmed citalopram 20 mg tablet 40 mg PO BID 12/06/12 05/30/22 aspirin 81 mg tablet 81 mg PO DAILY 05/30/22 05/30/22 benzonatate 100 mg capsule 100 mg PO TID PRN cough #10 caps 05/30/22 cholecalciferol (vitamin D3) 10 20 mcg PO DAILY 05/30/22 05/30/22 mcg (400 unit) capsule (Vitamin D3) Previous Rx's Medication Instructions Recorded benzonatate 100 mg capsule 100 mg PO TID PRN cough #10 caps 05/30/22 Allergies Allergy/AdvReac Type Severity Reaction Status Date / Time Penicillins Allergy Intermediate Hives Unverified 05/30/22 09:11 tetracycline [Tetracycline] Allergy Intermediate hive Unverified 05/30/22 09:11 meclizine Allergy Unknown Unverified 05/30/22 09:11 General Stated Complaint: SOB JOY: 4 Review of Systems All systems reviewed & are unremarkable except as noted in HPI and below Constitutional Constitutional: Reports as per HPI, Denies chills and Denies fever(s) Eyes Eyes: Denies blurry vision ENT Ears, Nose, Mouth, and Throat: Denies dizziness, Denies sore throat and Denies throat swelling Cardiovascular Cardiovascular: Denies chest pain and Reports dyspnea Respiratory Respiratory: Reports cough and Reports dyspnea Gastrointestinal Gastrointestinal: Denies abdominal pain, Denies diarrhea and Denies vomiting Genitourinary Genitourinary: Denies hematuria and Denies dysuria Musculoskeletal Musculoskeletal: Denies back pain and Denies numbness Integumentary/Breasts Skin/Breast: Denies lesions and Denies rash Neurologic Neurologic: Denies dizziness, Denies localized weakness and Denies numbness Allergic/Immunologic Allergic/Immunologic: Denies throat swelling PFSH All Active Problems (Updated 05/30/22 @ 11:17 by Kelly Holly DO) COVID-19 (Acute) Cough (Acute) Dyspnea (Acute) Sensorineural hearing loss of both ears (Acute) Ruptured appendicitis (Acute) Medical History (Updated 05/30/22 @ 11:17 by Kelly Holly DO) Cerebral palsy hemiplegic, congenital Chronic Fatigue Depression Disability Irritable bowel syndrome Malrotation Bowel migraine, unspec., not intractable Surgical History Appendectomy Colonoscopy - MAC (04/28/17) 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 Vaginal hysterectomy Social History Smoking/Tobacco Use Status: Former Tobacco Use Smoking risk assessment performed?: Yes Alcohol Intake: never Drug use: Never Substance use type: does not use Do you feel safe at home: Yes Do you feel safe in your relationship?: Yes Exam Const General: cooperative and no acute distress Orientation: alert, awake and oriented x3 HENMT Head: normal to inspection Face and sinus: normal facial exam Eyes General: appearance normal, both eyes and all related structures Pupils: PERRL EOM: EOM intact bilaterally Neck Neck: normal visual inspection and No submandibular swelling Lymphatic: no lymphadenopathy noted Chest Chest: normal inspection of the chest and no tenderness Chest/axillae images: 1. Localized area of pain which is nontender to palpation without rash, cellulitis or trauma. Resp Effort & Inspection: normal respiratory effort and able to speak in complete sentences Auscultation: clear to auscultation bilaterally Cardio Rate: regular rate Rhythm: regular rhythm GI Inspection: normal to inspection and obesity Palpation: soft, not firm, not rigid and nontender Auscultation: hypoactive bowel sounds Back/Spine/Pelvis Thoracic/Lumbar Spine: thoracic and lumbar spine normal to inspection Skin General skin exam: no rashes or lesions noted Neuro General: patient alert, patient awake and patient oriented x3 Cognition: normal cognition Speech: speech normal Motor: muscle tone normal throughout Sensory Exam: no sensory deficits noted Extrem General: normal to inspection, full ROM, capillary refill normal, no calf tenderness bilaterally and no edema Psych Appearance: grossly normal Mental Status: mental status grossly normal Speech and Movement: speech and movement normal Affect: normal affect
--- NOTE | 2022-05-30 09:48 | DI.RAD_ITS ---
Exam(s) XR CHEST 2V PA LATERAL EXAM: XR CHEST 2V PA LATERAL CLINICAL HISTORY: cough, sob, r/o acute disease TECHNIQUE: 2D digital imaging was performed. COMPARISON: CT CT CHEST PE CTA from 01/08/2022 FINDINGS: HEART: Normal size. Aorta: Not dilated. PULMONARY VASCULATURE: Normal. LUNGS: Clear. PLEURAL SPACE: No pleural effusion or pneumothorax. BONE:Unremarkable for age. IMPRESSION: No acute abnormality. DATA REPOSITORY: RADIATION DOSE DELIVERED:
[2022-05-30] MEDS: Albuterol/Ipratropium 3 ML UPD VIAL UPD (10:13)
[2022-05-30] MEDS: Ketorolac 30 MG/ML VIAL IVP (10:14)
[2022-05-30 10:20] LABS: COVID-19 PCR Negative (Negative); Influenza A PCR Negative (Negative); Influenza B PCR Negative (Negative); RSV PCR Negative (Negative)
[2022-05-30] MEDS: guaiFENesin/CODEINE PHOSPHATE 10 ML CUP 20 ML PO (11:33)
[2022-05-30] MEDS: Albuterol HFA 8 GM 60 PUFF INH IH (11:34)
== END 2022-05-30 11:33 | disposition home or self-care (01) ==
PROVIDERS: Emergency Provider Physician Assistant; PCP Family Medicine
DX: R05.9 Cough, unspecified (principal); R06.02 Shortness of breath; I10 Essential (primary) hypertension; Z79.82 Long term (current) use of aspirin; Z20.822 Contact with and (suspected) exposure to COVID-19
CPT/HCPCS: 36415; 87637; 93005; 94640; 96374; 99284; 71046; 93010; 99285; J1885; J7620

== ENCOUNTER 2022-09-17 12:08 | Emergency (ER) | payer OTHER, SELFPAY ==
[2022-09-17 12:16] VITALS: BP 135/90; PULSE 75; RESP 16; TEMP 36.6; O2SAT 98
--- NOTE | 2022-09-17 12:35 | ED.GENADUL_ITS ---
Discharge Plan Disposition Patient Disposition: Home Condition: Stable Discharge Details Clinical Impression: Otitis externa Primary Care Provider: Isabel Arreaga ED Provider: Ilan Richter Home Meds and New Rx's Prescriptions: New ofloxacin 0.3 % drops 10 drp otic (ear) BID 14 Days Qty: 10 0RF Continued citalopram 20 MG tablet 40 mg PO BID aspirin 81 mg Tablet 81 mg PO DAILY cholecalciferol (vitamin D3) [Vitamin D3] 10 mcg (400 unit) Capsule 20 mcg PO DAILY benzonatate 100 mg capsule 100 mg PO TID PRN (Reason: cough) Qty: 10 0RF Discharge Instructions Instructions: Otitis Externa (ED) Additional Instructions: if you are not improving this week follow up with your primary care provider return to the emergency department for severe wosening pain or fevers Medical Decision Making 72 yo female comes in with one week of right ear pain, no history of fevers or trauma. She does use hearing aids and has noticed pain when using her right hearing aid. She arrives stable and appears well, left tm and external auditory canal normal. Right external auditory canal is swollen, tm obscured due to this but no evidence of erythema on limited view. Exam consistent with otitis externa, no fevers or other symptoms to suggest malignant otitis externa, do not feel imaging or oral antibiotics indicated. Will start on ofloxacin drops, advised to f/u with pcp if not improving, return precations given Differential Diagnosis Differential Diagnosis: otitis externa, otitis media HPI General Mode of arrival: ambulatory . Date/Time Provider Initiated Documentation: 09/17/22 12:12 . Limitations to Documentation: no limitations . Information obtained by: patient . History of Present Illness 72 year old F presents to the emergency department with the chief complaint of right ear pain, described as moderate, Quality is described as aching, Patient started experiencing this week(s) (1) and it has been constant. No relieving factors improve symptom(s), No exacerbating factors reported . Patient notes no other symptoms.. Patient did receive the following treatments prior to arrival, none Related Data Home Medications Medication Instructions Recorded Confirmed citalopram 20 mg tablet 40 mg PO BID 12/06/12 09/17/22 aspirin 81 mg tablet 81 mg PO DAILY 05/30/22 09/17/22 benzonatate 100 mg capsule 100 mg PO TID PRN cough #10 caps 05/30/22 09/17/22 cholecalciferol (vitamin D3) 10 20 mcg PO DAILY 05/30/22 09/17/22 mcg (400 unit) capsule (Vitamin D3) ofloxacin 0.3 % ear drops 10 drp otic (ear) BID 14 days #10 09/17/22 mL Previous Rx's Medication Instructions Recorded benzonatate 100 mg capsule 100 mg PO TID PRN cough #10 caps 05/30/22 ofloxacin 0.3 % ear drops 10 drp otic (ear) BID 14 days #10 09/17/22 mL Allergies Allergy/AdvReac Type Severity Reaction Status Date / Time Penicillins Allergy Intermediate Hives Unverified 09/17/22 12:20 tetracycline [Tetracycline] Allergy Intermediate hive Unverified 09/17/22 12:20 meclizine Allergy Unknown Unverified 09/17/22 12:20 General Stated Complaint: EarProblem JOY: 4 Review of Systems All systems reviewed & are unremarkable except as noted in HPI and below Constitutional Constitutional: Denies chills, Denies fever(s) and Denies weakness Cardiovascular Cardiovascular: Denies chest pain and Denies dyspnea Respiratory Respiratory: Denies cough and Denies dyspnea Gastrointestinal Gastrointestinal: Denies abdominal pain, Denies nausea and Denies vomiting Integumentary/Breasts Skin/Breast: Denies rash Neurologic Neurologic: Denies weakness PFSH All Active Problems (Updated 09/17/22 @ 12:43 by Ilan Richter MD) COVID-19 (Acute) Otitis externa (Acute) Sensorineural hearing loss of both ears (Acute) Ruptured appendicitis (Acute) Medical History (Updated 09/17/22 @ 12:43 by Ilan Richter MD) Cerebral palsy hemiplegic, congenital Chronic Fatigue Depression Disability Irritable bowel syndrome Malrotation Bowel migraine, unspec., not intractable Surgical History Appendectomy Colonoscopy - MAC (04/28/17) 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 Vaginal hysterectomy Social History Smoking/Tobacco Use Status: Former Tobacco Use Smoking risk assessment performed?: Yes Alcohol Intake: never Drug use: Never Substance use type: does not use Do you feel safe at home: Yes Do you feel safe in your relationship?: Yes Exam Const General: no acute distress Orientation: alert HENMT Head: normal to inspection Ears: external ears normal and TM's normal bilaterally General nose exam: external nose normal Mouth: moist mucous membranes Eyes General: appearance normal, both eyes and all related structures Neck Neck: normal visual inspection Resp Effort & Inspection: normal respiratory effort and able to speak in complete sentences Cardio Rate: regular rate Skin General skin exam: no rashes or lesions noted Neuro General: patient alert and patient oriented x3 Extrem General: normal to inspection Psych Mental Status: mental status grossly normal Course Vital Signs Vital signs: Vital Signs Temperature 36.6 C 09/17/22 12:16 Pulse 75 09/17/22 12:16 Respiratory Rate 16 09/17/22 12:16 Blood Pressure 135/90 09/17/22 12:16 Pulse Oximetry 98 09/17/22 12:16 Temperature 36.6 C 09/17/22 12:16 Temperature Source Temporal Artery Scan 09/17/22 12:16 Pulse 75 09/17/22 12:16 Respiratory Rate 16 09/17/22 12:16 Respiratory Effort Normal 09/17/22 12:19 Blood Pressure 135/90 09/17/22 12:16 Blood Pressure Position Sitting 09/17/22 12:16 Pulse Oximetry 98 09/17/22 12:16 Oxygen Delivery Method Room Air 09/17/22 12:16 Oxygen Flow Rate 0 09/17/22 12:16 Pain Level 0 09/17/22 12:16
== END 2022-09-17 12:47 | disposition home or self-care (01) ==
PROVIDERS: Emergency Provider Emergency Medicine; PCP Family Medicine
DX: H60.91 Unspecified otitis externa, right ear (principal)
CPT/HCPCS: 99283; 99284

== ENCOUNTER 2022-09-25 13:35 | Emergency (ER) | payer OTHER, SELFPAY ==
[2022-09-25 13:37] VITALS: BP 149/97; PULSE 70; RESP 20; TEMP 36; O2SAT 99
--- NOTE | 2022-09-25 13:57 | W.ED.GENAD ---
Discharge Plan Disposition Patient Disposition: Home Condition: Stable Discharge Details Clinical Impression: Depression, Anxiety Primary Care Provider: Isabel Arreaga ED Provider: Ilan Richter Home Meds and New Rx's Prescriptions: New lorazepam [Ativan] 1 mg tablet 1 mg PO TID PRNQty: 7 0RF Continued citalopram 20 MG tablet 60 mg PO DAILY aspirin 81 mg Tablet 81 mg PO DAILY cholecalciferol (vitamin D3) [Vitamin D3] 10 mcg (400 unit) Capsule 20 mcg PO DAILY acetylcysteine [NAC] 600 mg capsule Patient Comments: Unknown if taking - Take 2 capsule by mouth twice a day as needed TAKE 2 CAPSULES BY MOUTH EVERY MORNING AND TAKE 2 CAPSULES BY MOUTH IN THE AFTERNOON IF NEEDED ofloxacin 0.3 % drops 10 drp otic (ear) BID 14 Days Qty: 10 0RF Discharge Instructions Instructions: Depression (ED), Anxiety (ED) Additional Instructions: follow up with your primary care provider this week if you feel more ill, have worsening symptoms or thoughts of self harm return to the emergency department Medical Decision Making 72 yo female with hx of depression and anxiety comes in with complaints of worsening anxiety and depression. She states her pcp decreased her citalopram dose recently and was supposed to prescribe her an additional medication but it wasn't sent to the pharmacy. The last few days she's been axious and depressed more than usual so came here. Denies si or thoughts of self harm. She is caox4 on arrival and is anxious on exam. She has no focal deficits, clear speech. Denies any chest pain, headaches, abdominal pain. Given her history and exam do not feel medical workup indicated. Will have [facility] screen her. pt screened and doesn't meet criteria for hospitalization, will provide her with small amount of ativan at her request until she can see her pcp this week. Return precautions given Differential Diagnosis Differential Diagnosis: depression, anxiety HPI General Mode of arrival: ambulatory. Date/Time Provider Initiated Documentation: 09/25/22 13:41. Limitations to Documentation: no limitations. Information obtained by: patient. History of Present Illness 72 year old F presents to the emergency department with the chief complaint of depression/anxiety, described as moderate, No relieving factors improve symptom(s), No exacerbating factors reported . Patient notes denies chest pain, fever/chills and shortness of breath. Patient did receive the following treatments prior to arrival, none Related Data Home Medications Medication Instructions Recorded Confirmed citalopram 20 mg tablet 60 mg PO DAILY 12/06/12 09/25/22 aspirin 81 mg tablet 81 mg PO DAILY 05/30/22 09/25/22 cholecalciferol (vitamin D3) 10 20 mcg PO DAILY 05/30/22 09/25/22 mcg (400 unit) capsule (Vitamin D3) ofloxacin 0.3 % ear drops 10 drp otic (ear) BID 14 days #10 09/17/22 09/25/22 mL acetylcysteine 600 mg capsule (NAC) mg 09/25/22 lorazepam 1 mg tablet (Ativan) 1 mg PO TID PRN #7 tabs 09/25/22 Previous Rx's Medication Instructions Recorded ofloxacin 0.3 % ear drops 10 drp otic (ear) BID 14 days #10 09/17/22 mL lorazepam 1 mg tablet (Ativan) 1 mg PO TID PRN #7 tabs 09/25/22 Allergies Allergy/AdvReac Type Severity Reaction Status Date / Time Penicillins Allergy Intermediate Hives Unverified 09/25/22 13:45 tetracycline [Tetracycline] Allergy Intermediate hive Unverified 09/25/22 13:45 meclizine Allergy Unknown Unverified 09/25/22 13:45 General Stated Complaint: GenMedical JOY: 3 Review of Systems All systems reviewed & are unremarkable except as noted in HPI and below Constitutional Constitutional: Denies chills, Denies fever(s) and Denies weakness Cardiovascular Cardiovascular: Denies chest pain and Denies dyspnea Respiratory Respiratory: Denies cough and Denies dyspnea Gastrointestinal Gastrointestinal: Denies abdominal pain, Denies nausea and Denies vomiting Integumentary/Breasts Skin/Breast: Denies rash Neurologic Neurologic: Denies weakness Endocrine Endocrine: Denies cold intolerance and Denies heat intolerance PFSH All Active Problems (Updated 09/25/22 @ 14:42 by Ilan Richter MD) COVID-19 (Acute) Otitis externa (Acute) Depression (Chronic) Anxiety (Chronic) Sensorineural hearing loss of both ears (Acute) Ruptured appendicitis (Acute) Medical History (Updated 09/25/22 @ 14:42 by Ilan Richter MD) Cerebral palsy hemiplegic, congenital Chronic Fatigue Depression Disability Irritable bowel syndrome Malrotation Bowel migraine, unspec., not intractable Surgical History Appendectomy Colonoscopy - MAC (04/28/17) 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 Vaginal hysterectomy Social History Smoking/Tobacco Use Status: Former Tobacco Use Smoking risk assessment performed?: Yes Alcohol Intake: never Drug use: Never Substance use type: does not use Do you feel safe at home: Yes Do you feel safe in your relationship?: Yes Exam Const Orientation: alert HENMT Head: normal to inspection Ears: external ears normal General nose exam: external nose normal Mouth: moist mucous membranes Eyes General: appearance normal, both eyes and all related structures Neck Neck: normal visual inspection Resp Effort & Inspection: normal respiratory effort and able to speak in complete sentences Cardio Rate: regular rate Skin General skin exam: no rashes or lesions noted Neuro General: patient alert and patient oriented x3 Extrem General: normal to inspection Psych Mood: anxious mood Affect: anxious affect Attitude: cooperative Course Vital Signs Vital signs: Vital Signs Temperature 36.0 C L 09/25/22 13:37 Pulse 70 09/25/22 13:37 Respiratory Rate 20 09/25/22 13:37 Blood Pressure 149/97 H 09/25/22 13:37 Pulse Oximetry 99 09/25/22 13:37 Temperature 36.0 C L 09/25/22 13:37 Temperature Source Tympanic 09/25/22 13:37 Pulse 70 09/25/22 13:37 Respiratory Rate 20 09/25/22 13:37 Blood Pressure 149/97 H 09/25/22 13:37 Blood Pressure Position Sitting 09/25/22 13:37 Pulse Oximetry 99 09/25/22 13:37 Oxygen Delivery Method Room Air 09/25/22 13:37 Oxygen Flow Rate 0 09/25/22 13:37 Pain Level 0 09/25/22 13:37
== END 2022-09-25 14:56 | disposition home or self-care (01) ==
PROVIDERS: Emergency Provider Emergency Medicine; PCP Family Medicine
DX: F32.A Depression, unspecified (principal); F41.9 Anxiety disorder, unspecified
CPT/HCPCS: 99283; 99284

== ENCOUNTER 2022-10-01 21:48 | Emergency (ER) | payer MEDICARE, SELFPAY ==
[2022-10-01 21:53] VITALS: BP 133/81; PULSE 74; RESP 16; TEMP 36.5; O2SAT 98
--- NOTE | 2022-10-01 22:14 | W.ED.GENAD ---
Discharge Plan Disposition Patient Disposition: Home Condition: Good Discharge Details Clinical Impression: Insect bite Primary Care Provider: Isabel Arreaga ED Provider: Lizbet Padilla Home Meds and New Rx's Prescriptions: New cephalexin 500 mg capsule 500 mg PO QID Qty: 40 0RF Continued citalopram 20 MG tablet 60 mg PO DAILY aspirin 81 mg Tablet 81 mg PO DAILY cholecalciferol (vitamin D3) [Vitamin D3] 10 mcg (400 unit) Capsule 20 mcg PO DAILY lorazepam [Ativan] 1 mg tablet 1 mg PO TID PRNQty: 7 0RF acetylcysteine 600 mg capsule 1,200 mg PO BID Patient Comments: TAKE TWO CAPSULES BY MOUTH EVERY MORNING AND TAKE 2 CAPSULES IN THE AFTERNOON NEEDED Discharge Instructions Instructions: Insect Bite or Sting (ED) Additional Instructions: After returning home take Benadryl 50 mg every 4-6 hours for the next 24 to 72 hours. If this is allergic reaction to some type of insect sting Benadryl should be less than 1+ swelling, heat, and pink discoloration. If the 2 swollen areas become beefy red and larger then start the Keflex 500 mg 4x times per day. Return to the ED for red streaks going up your arm, fever of 100.4 or above, any other concerns. Discharge Data Discharge Date/Time-TO BE ENTERED AT DEPARTURE: 10/01/22 22:35 Medical Decision Making Due to the fact that the patient had some itching when outside in the yard yesterday and has several puncture wounds within the areas of faint erythema, I suspect that she has been bitten by an insect. I do not think the patient has elsa cellulitis. I will treat her for a local allergic reaction with Benadryl which she will take when she gets home. If the area is not improving by tomorrow morning, I have given her Keflex that she can take for cellulitis. We discussed the differential diagnosis. She is nontoxic-appearing and comfortable with the plan [facility] General Date/Time Provider Initiated Documentation: 10/01/22 22:14. [facility] Narrative: 72-year-old female patient presents with a chief complaint of 2 red swollen areas on her left upper extremity. Patient states that she was out in the yard yesterday and felt some itching on her arm. Last night and area posterolateral forearm began to swell. There was a tiny puncture wound there. She has another area near her olecranon on the left with several puncture wounds. Today the areas swelled a teeny bit more and are still itching. Her was concerned because the areas were warm and she decided to come to the emergency room. She is not immunocompromised and has no history of diabetes. She has never had issues with cellulitis in the past. She denies any systemic symptoms. There is no fever, chills, or rigors. She has no red streaks. Related Data Home Medications Medication Instructions Recorded Confirmed citalopram 20 mg tablet 60 mg PO DAILY 12/06/12 10/01/22 aspirin 81 mg tablet 81 mg PO DAILY 05/30/22 10/01/22 cholecalciferol (vitamin D3) 10 20 mcg PO DAILY 05/30/22 10/01/22 mcg (400 unit) capsule (Vitamin D3) lorazepam 1 mg tablet (Ativan) 1 mg PO TID PRN #7 tabs 09/25/22 10/01/22 acetylcysteine 600 mg capsule 1,200 mg PO BID 10/01/22 10/01/22 cephalexin 500 mg capsule 500 mg PO QID #40 caps 10/01/22 Previous Rx's Medication Instructions Recorded lorazepam 1 mg tablet (Ativan) 1 mg PO TID PRN #7 tabs 09/25/22 cephalexin 500 mg capsule 500 mg PO QID #40 caps 10/01/22 Allergies Allergy/AdvReac Type Severity Reaction Status Date / Time Penicillins Allergy Intermediate Hives Unverified 10/01/22 21:56 tetracycline [Tetracycline] Allergy Intermediate hive Unverified 10/01/22 21:56 meclizine Allergy Unknown Unverified 10/01/22 21:56 General Stated Complaint: Cellulitis JOY: 4 Review of Systems Constitutional Constitutional: Denies chills, Denies fever(s), Denies headache(s) and Denies weakness Eyes Eyes: Denies diplopia and Reports other (no redness) ENT Ears, Nose, Mouth, and Throat: Denies otalgia, Denies headache(s), Denies nasal congestion, Denies nasal discharge, Denies neck pain and Denies sore throat Cardiovascular Cardiovascular: Denies chest pain, Denies palpitations and Denies dyspnea Respiratory Respiratory: Denies cough and Denies dyspnea Gastrointestinal Gastrointestinal: Denies abdominal pain, Denies diarrhea, Denies nausea and Denies vomiting Genitourinary Genitourinary: Denies dysuria Musculoskeletal Musculoskeletal: Denies myalgias, Denies muscle weakness, Denies neck pain, Denies numbness and Reports other (edema) Comments: No left upper extremity pain Integumentary/Breasts Skin/Breast: Reports change in pigmentation (Several small areas of pale erythema left forearm and elbow, warm to touch) and Denies rash Neurologic Neurologic: Denies headache(s), Denies numbness and Denies weakness Endocrine Endocrine: Denies palpitations PFSH All Active Problems (Updated 10/01/22 @ 22:14 by Lizbet Padilla MD) COVID-19 (Acute) Otitis externa (Acute) Depression (Chronic) Anxiety (Chronic) Insect bite (Acute) Sensorineural hearing loss of both ears (Acute) Ruptured appendicitis (Acute) Medical History (Updated 10/01/22 @ 22:14 by Lizbet Padilla MD) Cerebral palsy hemiplegic, congenital Chronic Fatigue Depression Disability Irritable bowel syndrome Malrotation Bowel migraine, unspec., not intractable Surgical History Appendectomy Colonoscopy - MAC (04/28/17) 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 Vaginal hysterectomy Social History Smoking/Tobacco Use Status: Former Tobacco Use Smoking risk assessment performed?: Yes Alcohol Intake: never Drug use: Never Substance use type: does not use Do you feel safe at home: Yes Do you feel safe in your relationship?: Yes Exam Const General: no acute distress, well developed, well groomed and not in acute distress Nutritional Appearance: well nourished Orientation: alert and oriented x3 HENMT Head: normocephalic and atraumatic Ears: external ears normal Mouth: moist mucous membranes Eyes Conjunctivae: conjunctivae normal Neck Neck: full ROM and supple Resp Effort & Inspection: normal respiratory effort Auscultation: clear to auscultation bilaterally Cardio Rate: regular rate Rhythm: regular rhythm Heart Sounds: no murmurs and no rubs GI Auscultation: normal bowel sounds Skin General skin exam: no rashes or lesions noted and other (pink, warm, dry; R arm and elbow with 2 round areas of erythema) Other: Right forearm and elbow with areas of erythema, faintly pain, centralized PW's, warm to touch, indurated around PWs Neuro General: patient alert, patient awake and patient oriented x3 Speech: speech normal Motor: other (GARCIA) Sensory Exam: no sensory deficits noted Extrem General: full ROM, pedal edema present and other (LUE with 2 areas of faint erythema, PW ctr. each, warm to touch) Psych Mental Status: mental status grossly normal Speech and Movement: speech and movement normal Affect: normal affect Course Vital Signs Vital signs: Vital Signs Temperature 36.5 C 10/01/22 21:53 Pulse 74 10/01/22 21:53 Respiratory Rate 16 10/01/22 21:53 Blood Pressure 133/81 10/01/22 21:53 Pulse Oximetry 98 10/01/22 21:53 Temperature 36.5 C 10/01/22 21:53 Temperature Source Temporal Artery Scan 10/01/22 21:53 Pulse 74 10/01/22 21:53 Respiratory Rate 16 10/01/22 21:53 Respiratory Effort Normal 10/01/22 21:53 Blood Pressure 133/81 10/01/22 21:53 Blood Pressure Position Sitting 10/01/22 21:53 Pulse Oximetry 98 10/01/22 21:53 Oxygen Delivery Method Room Air 10/01/22 21:53 Oxygen Flow Rate 0 10/01/22 21:53 Pain Level 3 10/01/22 21:53
== END 2022-10-01 22:35 | disposition home or self-care (01) ==
PROVIDERS: Emergency Provider Emergency Medicine; PCP Family Medicine
DX: S40.862A Insect bite (nonvenomous) of left upper arm, initial encounter (principal); W57.XXXA Bitten or stung by nonvenomous insect and other nonvenomous arthropods, initial encounter
CPT/HCPCS: 99283

== ENCOUNTER 2023-03-03 17:32 | Outpatient (REF) | payer MEDICARE, SELFPAY ==
[2023-03-03 20:52] LABS: Source Nasal/Nares
[2023-03-03 21:39] LABS: COVID-19 PCR Negative (Negative)
== END 2023-03-03 17:33 | disposition home or self-care (01) ==
LOC: LBN 17:32
PROVIDERS: PCP Family Medicine; Visit Provider Physician Assistant Medical
DX: R05.8 Other specified cough (principal); Z20.822 Contact with and (suspected) exposure to COVID-19
CPT/HCPCS: 87635

== ENCOUNTER 2023-06-22 11:29 | Emergency (ER) | payer MEDICARE, SELFPAY ==
[2023-06-22 11:34] VITALS: BP 139/90; PULSE 76; RESP 20; TEMP 36.8; O2SAT 95
[2023-06-22 11:39] VITALS: BP 139/90; PULSE 76; RESP 20; TEMP 36.8; O2SAT 95
--- NOTE | 2023-06-22 12:15 | ED.GENADUL_ITS ---
HPI General Mode of arrival: ambulatory . Date/Time Provider Initiated Documentation: 06/22/23 11:42 . Limitations to Documentation: no limitations . Information obtained by: patient, RN notes reviewed and old records reviewed . HPI Narrative: 72 year old female presents to to ED with chief complaint of being unable to aquire a Paxlovid prescription due to pharmacy back order. She tested positive yesterday and has had symptoms for the last 2 days. She does have a family member who is also tested positive. She has report nonproductive cough and chills headache. She is hemodynamically stable upon arrival speaking in full sentences. Past medical history include migraine and cerebral palsy and depression irritable bowel syndrome. She has been taking [id number] medication at home. Related Data Home Medications Medication Instructions Recorded Confirmed citalopram 20 mg tablet 60 mg PO DAILY 12/06/12 06/22/23 aspirin 81 mg tablet 81 mg PO DAILY 05/30/22 06/22/23 cholecalciferol (vitamin D3) 10 20 mcg PO DAILY 05/30/22 06/22/23 mcg (400 unit) capsule (Vitamin D3) lorazepam 1 mg tablet (Ativan) 1 mg PO TID PRN #7 tabs 09/25/22 06/22/23 acetylcysteine 600 mg capsule 1,200 mg PO BID 10/01/22 06/22/23 benzonatate 100 mg capsule 100 mg PO TID PRN cough #14 caps 06/22/23 Previous Rx's Medication Instructions Recorded lorazepam 1 mg tablet (Ativan) 1 mg PO TID PRN #7 tabs 09/25/22 benzonatate 100 mg capsule 100 mg PO TID PRN cough #14 caps 06/22/23 Allergies Allergy/AdvReac Type Severity Reaction Status Date / Time Penicillins Allergy Intermediate Hives Unverified 06/22/23 11:38 tetracycline [Tetracycline] Allergy Intermediate hive Unverified 06/22/23 11:38 meclizine Allergy Unknown Unverified 06/22/23 11:38 General Stated Complaint: RespSymp JOY: 4 Review of Systems All systems reviewed & are unremarkable except as noted in HPI and below Constitutional Constitutional: Reports as per HPI and Reports fatigue Cardiovascular Cardiovascular: Denies chest pain Respiratory Respiratory: Denies chest congestion, Reports cough and Denies wheezing Endocrine Endocrine: Reports fatigue Allergic/Immunologic Allergic/Immunologic: Denies wheezing Exam Narrative Exam Narrative: Constitutional: Alert and oriented x3. Appears stated age. Normal body habitus. Head: Normocephalic, no trauma. Eyes: EOM's intact. Eyelids symmetrical without lesions, discharge, or swelling. Chest: RRR, Normal S1, S2, distal pulses intact. Resp: Lungs clear to auscultation bilaterally, no wheezes, rales, or rhonchi. Musculoskeletal: Normal gait, 5/5 strength to all four extremities. Skin: No suspicious rashes or lesions. Capillary refill less than 2 sec. Neurologic: Cranial nerves II-XII intact. Alert and oriented x 3. Motor: No deficits noted. Course Vital Signs Vital signs: Vital Signs Temperature 36.8 C 06/22/23 11:34 Pulse 76 06/22/23 11:34 Respiratory Rate 20 06/22/23 11:34 Blood Pressure 139/90 06/22/23 11:34 Pulse Oximetry 95 06/22/23 11:34 Temperature 36.8 C 06/22/23 11:39 Temperature Source Temporal Artery Scan 06/22/23 11:39 Pulse 76 06/22/23 11:39 Respiratory Rate 20 06/22/23 11:39 Respiratory Effort Normal 06/22/23 11:40 Respiratory Depth Normal 06/22/23 11:39 Blood Pressure 139/90 06/22/23 11:39 Blood Pressure Position Sitting 06/22/23 11:39 Pulse Oximetry 95 06/22/23 11:39 Oxygen Delivery Method Room Air 06/22/23 11:39 Oxygen Flow Rate 0 06/22/23 11:39 Pain Level 7 06/22/23 11:39 Medical Decision Making 72 year old female presents to to ED with chief complaint of being unable to aquire a Paxlovid prescription due to pharmacy back order. She tested positive yesterday and has had symptoms for the last 2 days. She does have a family member who is also tested positive. She has report nonproductive cough and chills headache. She is hemodynamically stable upon arrival speaking in full sentences. Past medical history include migraine and cerebral palsy and depression irritable bowel syndrome. She has been taking [id number] medication at home. 1216: Spoke with the pharmacist regarding the molnupiravir there are no medication contraindications no need for labs to be checked. Prescription ordered for that to be dispensed. I also will give a albuterol inhaler and Tessalon Perles to go. Patient discharged in hemodynamically stable condition. 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 Vaginal hysterectomy Colonoscopy - MAC (04/28/17) Appendectomy Social History Smoking/Tobacco Use Status: Former Tobacco Use Smoking risk assessment performed?: Yes Alcohol Intake: never Drug use: Never Substance use type: does not use Do you feel safe at home: Yes Do you feel safe in your relationship?: Yes Discharge Plan Disposition Patient Disposition: Home Condition: Stable Discharge Details Clinical Impression: COVID-19 Primary Care Provider: Isabel Arreaga ED Provider: Aziza Tavarez Home Meds and New Rx's Prescriptions: New benzonatate 100 mg capsule 100 mg PO TID PRN (Reason: cough) Qty: 14 0RF Rx Instructions: Take 1 capsule up to 3 times daily as needed for cough No Action citalopram 20 MG tablet 60 mg PO DAILY aspirin 81 mg Tablet 81 mg PO DAILY cholecalciferol (vitamin D3) [Vitamin D3] 10 mcg (400 unit) Capsule 20 mcg PO DAILY lorazepam [Ativan] 1 mg tablet 1 mg PO TID PRNQty: 7 0RF acetylcysteine 600 mg capsule 1,200 mg PO BID Patient Comments: TAKE TWO CAPSULES BY MOUTH EVERY MORNING AND TAKE 2 CAPSULES IN THE AFTERNOON NEEDED Discharge Instructions Instructions: COVID-19 (Coronavirus Disease 2019) (ED) Additional Instructions: Use albuterol inhaler 1 or 2 puffs every 4-6 hours as needed for cough and wheezing. Please take the Tessalon Perles as directed.. Take the antiviral COVID medication 4 tablets twice a day for the next 5 days. Consider getting a [id number] pulse oximeter. Please return to the ER if your oxygen is less than 90% for 15 minutes or greater. Please take Tylenol with food every 4-6 hours as needed for pain and swelling. Follow up with primary care provider in 3-5 days. Return to ED sooner if any worsening or concerns. Increase oral fluids. Referrals: Isabel Arreaga [Primary Care Provider] - 3 days Discharge Data Discharge Date/Time-TO BE ENTERED AT DEPARTURE: 06/22/23 12:39
[2023-06-22] MEDS: Inhaler, Assist Device 1 EACH MC (12:18)
[2023-06-22] MEDS: Albuterol HFA 8 GM 60 PUFF INH IH (12:18)
[2023-06-22] MEDS: Benzonatate 100 MG CAP PO ×2 (12:20)
== END 2023-06-22 12:39 | disposition home or self-care (01) ==
PROVIDERS: Emergency Provider Registered Nurse Emergency; PCP Family Medicine
DX: U07.1 COVID-19 (principal); G80.9 Cerebral palsy, unspecified; Z79.82 Long term (current) use of aspirin; Z87.891 Personal history of nicotine dependence
CPT/HCPCS: 99283

== ENCOUNTER 2023-08-29 20:58 | Emergency (ER) | payer MEDICARE, SELFPAY ==
[2023-08-29 21:01] VITALS: BP 151/101; PULSE 74; RESP 18; TEMP 36.9; O2SAT 98
--- NOTE | 2023-08-29 21:59 | W.ED.GENAD ---
Discharge Plan Disposition Patient Disposition: Home Condition: Stable Discharge Details Clinical Impression: Left wrist pain Primary Care Provider: Isabel Arreaga ED Provider: Martinez Laguna Home Meds and New Rx's Prescriptions: Continued citalopram 20 MG tablet 60 mg PO DAILY aspirin 81 mg Tablet 81 mg PO DAILY cholecalciferol (vitamin D3) [Vitamin D3] 10 mcg (400 unit) Capsule 20 mcg PO DAILY lorazepam [Ativan] 1 mg tablet 1 mg PO TID PRNQty: 7 0RF acetylcysteine 600 mg capsule 1,200 mg PO BID Patient Comments: TAKE TWO CAPSULES BY MOUTH EVERY MORNING AND TAKE 2 CAPSULES IN THE AFTERNOON NEEDED benzonatate 100 mg capsule 100 mg PO TID PRN (Reason: cough) Qty: 14 0RF Rx Instructions: Take 1 capsule up to 3 times daily as needed for cough Discharge Instructions Instructions: Osteoarthritis (ED), Arthritis (ED) Additional Instructions: You were seen in the emergency department for your left wrist pain, there was no trauma and there is only some mild swelling without redness or warmth to touch, no pain with passive range of motion, this is not in the right place for a ganglion cyst to be the etiology. You stated that you needed to leave the ER, but I suggest that you call your primary care provider and have her schedule a left wrist x-ray to rule out bony abnormalities and to draw a uric acid level to rule out pathology like gout. Please use the provided wrist brace 12/12, please use therapeutic dosing of Tylenol (acetamenophen) & Advil (ibuprofen) in an alternating fashion as follows: Take 1000mg of Tylenol every 6 hours without missing doses- that is 4 times per day. Group Home in between the Tylenol dosings, take 400-600mg of Advil also on a 6 hour schedule, that is also 4 times per day. The daily maximum dosing of Tylenol is 4000mg, and the daily maximum dosing of Advil is 2400mg. This is safe to do for weeks. Please note that some common cold medications & prescription pain medications may contain acetamenophen and you need to read OTC drug labels and factor that in to maximum daily dosings. While I was dictating this patient discharge instruction she stated that she did not wish to receive any instructions and left the department ELOPED Discharge Data Discharge Date/Time-TO BE ENTERED AT DEPARTURE: 04/09/24 21:21 HPI General Date/Time Provider Initiated Documentation: 08/29/23 21:11. HPI Narrative: 73 year-old female presents to ED today by POV/ambulating with a chief complaint of L wrist pain at hypothenar eminence without trama with onset for the past 1 day. Quality described as tender to touch, mild swelling, no radiation to erythema, trauma, bruising, fluctuance. Severity is described as 8/10. Palliating factors include nothing specific attempted. Provoking factors include nothing specific. Events leading up to the incident/Associated Symptoms: Patient is R-hand dominant. Patient not anticoagulated. Related Data Home Medications Medication Instructions Recorded Confirmed citalopram 20 mg tablet 60 mg PO DAILY 12/06/12 06/22/23 aspirin 81 mg tablet 81 mg PO DAILY 05/30/22 06/22/23 cholecalciferol (vitamin D3) 10 20 mcg PO DAILY 05/30/22 06/22/23 mcg (400 unit) capsule (Vitamin D3) lorazepam 1 mg tablet (Ativan) 1 mg PO TID PRN #7 tabs 09/25/22 06/22/23 acetylcysteine 600 mg capsule 1,200 mg PO BID 10/01/22 06/22/23 benzonatate 100 mg capsule 100 mg PO TID PRN cough #14 caps 06/22/23 Previous Rx's Medication Instructions Recorded lorazepam 1 mg tablet (Ativan) 1 mg PO TID PRN #7 tabs 09/25/22 benzonatate 100 mg capsule 100 mg PO TID PRN cough #14 caps 06/22/23 Allergies Allergy/AdvReac Type Severity Reaction Status Date / Time Penicillins Allergy Intermediate Hives Unverified 08/29/23 21:06 tetracycline [Tetracycline] Allergy Intermediate hive Unverified 08/29/23 21:06 meclizine Allergy Unknown Other (See Unverified 08/29/23 21:06 Comment) General Stated Complaint: Orthopedic JOY: 4 Review of Systems All systems reviewed & are unremarkable except as noted in HPI and below Exam Narrative Exam Narrative: GENERAL APPEARANCE: Well-nourished, non-toxic, awake and alert, atraumatic, no acute distress. SKIN: Warm, pink, dry, intact, without rashes/lesions/ulcerations. HEAD: Normocephalic, atraumatic, normal hair distribution for gender/age. EYES: Pupils PERRLA, EOMs intact without nystagmus, normal conjunctiva, no exudates on lids/lashes. ENT: Nares patent, no circumoral cyanosis, no facial swelling NECK: Supple, trachea midline, painless cervical ROM. LUNGS/CHEST: Non-labored respirations, normal A/P diameter, symmetrical expansion, no chest wall deformity HEART (CV/PV): Regular rate, L radial pulse 2+, no peripheral edema, no JVD. ABDOMEN: Soft, non-distended, no guarding. MSK: Normal ROM, no swelling/deformity to bilateral UEs or LEs, moving all extremities without weakness, no cyanosis, spine midline without tenderness, normal curvature. L Hand/Wrist: Tenderness to palpation at L hypothenar eminence, mild swelling without erythema or fluctuance, intact ROM in hand/wrist/all fingers, no bony tenderness of forearm, no anatomical snuff-box tenderness, Tinnels & Phalens positive NEURO: Mental Status AAOx4 - alert to person, place, time, events No facial droop, no forehead involvement. Motor: No focal weakness - strength 5/5 in bilateral UEs and LEs, proximal and distal, symmetric. Sensory: sensation intact to light touch globally. Gait normal: patient ambulated without ataxia into ED room. PSYCH: euthymic, cooperative, pleasant, appropriate speech Course Vital Signs Vital signs: Vital Signs Temperature 36.9 C 08/29/23 21:01 Pulse 74 08/29/23 21:01 Respiratory Rate 18 08/29/23 21:01 Blood Pressure 151/101 H 08/29/23 21:01 Pulse Oximetry 98 08/29/23 21:01 Temperature 36.9 C 08/29/23 21:01 Temperature Source Oral 08/29/23 21:01 Pulse 74 08/29/23 21:01 Respiratory Rate 18 08/29/23 21:01 Respiratory Effort Normal 08/29/23 21:04 Blood Pressure 151/101 H 08/29/23 21:01 Blood Pressure Position Sitting 08/29/23 21:01 Pulse Oximetry 98 08/29/23 21:01 Oxygen Delivery Method Room Air 08/29/23 21:01 Oxygen Flow Rate 0 08/29/23 21:01 Medical Decision Making This dictation utilizes [id number] dictation software and may contain unedited grammatical errors. 73 y/o F presents to ED today with a chief complaint of L wrist pain at hypothenar eminence for one day. Denies trauma, denies numbness/tingling, denies redness/warmth to touch. Patients' medical history: R carpal tunnel syndrome. Family and social history: noncontributory. Pertinent exam findings / vital signs include L Hand/Wrist: Tenderness to palpation at L hypothenar eminence, mild swelling without erythema or fluctuance, intact ROM in hand/wrist/all fingers, no bony tenderness of forearm, no anatomical snuff-box tenderness, Tinnels & Phalens positive. Differential / pathologies of concern include arthritis, carpal tunnel syndrome, gout, sprain/strain, unlikely cellulitis/septic arthritis. Diagnostic studies of: -Xr L Wrist, Uric acid level - patient refused. Interventions of: -Offered wrist brace, patient declined. ED Course/Assessment/Plan: 73-year-old female presents with left wrist pain at the hypothenar eminence, there is some mild swelling to this area but no redness or signs of infection or cyst. States that she may have carpal tunnel syndrome versus arthritis versus gout. I offered x-ray as well as uric acid level and wrist bracing with likely referral to orthopedics. The patient stated that she needed to get home so that her 15-year-old at home could get to school tomorrow. I stated that she could get the studies done and not receive results and still leave, or at least receive a wrist brace to go home, patient declined and eloped from the department. Findings not consistent with fracture, septic arthritis, NV compromise. Disposition of Left Wrist Pain. Patient verbalized understanding of the plan and return to ED criteria and engaged in shared decision making. Medical Records Medical records reviewed: Yes I reviewed the patient's medical records. 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 Vaginal hysterectomy Colonoscopy - MAC (04/28/17) Appendectomy Social History Smoking/Tobacco Use Status: Former Tobacco Use Smoking risk assessment performed?: Yes Alcohol Intake: never Drug use: Never Substance use type: does not use Do you feel safe at home: Yes Do you feel safe in your relationship?: Yes
--- NOTE | 2023-08-29 22:28 | NUR.NOTE ---
Pt was seen by a provider and labs were ordered but pt stated she could not wait any longer and left without AMA paper work or discharge paper work.
--- NOTE | 2023-08-30 12:09 | W.ED.FU ---
Date of service: 08/30/23 Time of Service: 12:10 Follow Up Plan: This patient went to diagnostic imaging during my shift as an outpatient. She was seen last night and eloped from the ED. She reportedly had left wrist pain. Plan was to have her primary care follow her up and order a left wrist x-ray. I ordered the films for the patient.
== END 2023-08-29 21:21 | disposition home or self-care (01) ==
PROVIDERS: Emergency Provider Physician Assistant; PCP Family Medicine
DX: M79.642 Pain in left hand (principal); M25.532 Pain in left wrist; Z53.29 Procedure and treatment not carried out because of patient's decision for other reasons
CPT/HCPCS: 99282; 84550

== ENCOUNTER → 2023-08-30 13:54 | Outpatient (CLI) | payer MEDICARE, SELFPAY ==
--- NOTE | 2023-08-30 | DI.RAD_ITS ---
Exam(s) XR WRIST LT COMP NAVICULAR EXAM: XR WRIST LT COMP NAVICULAR CLINICAL HISTORY: LT WRIST PAIN. TECHNIQUE: 2D digital imaging was performed. Three views. COMPARISON: No exams were available for comparison FINDINGS: BONES: No acute fracture is present. No bony destructive lesion is seen. JOINTS: The carpal bones are normally aligned. Mild degenerative changes. SOFT TISSUE: Normal. IMPRESSION: Mild degenerative changes. DATA REPOSITORY: RADIATION DOSE DELIVERED:
== END ==
PROVIDERS: PCP Family Medicine; Visit Provider Emergency Medicine
DX: M25.532 Pain in left wrist (principal); M19.032 Primary osteoarthritis, left wrist
CPT/HCPCS: 73110

== ENCOUNTER → 2023-09-26 03:01 | Outpatient (CLI) | payer MEDICARE, SELFPAY ==
--- NOTE | 2023-09-26 | DI.US_ITS ---
Exam(s) US ABDOMEN LIMITED EXAM: US ABDOMEN LIMITED CLINICAL HISTORY: RUQ PAIN, R10.11 TECHNIQUE: Ultrasound abdomen performed using standard protocol. COMPARISON: US US ABDOMEN from 03/18/[address] ABDOMEN WO/W from 03/26/2021 FINDINGS: PANCREAS: Normal where visualized. LIVER: There is diffuse increased echogenicity of the liver consistent with fatty infiltration. Hepa topetal flow in the Portal Vein. The liver measures in 12.8 cm length. No evidence of a hepatic mass. GALLBLADDER: No evidence of cholelithiasis. No evidence of wall thickening. No pericholecystic fluid identified. There is a small 4 mm protuberance along the wall of the gallbladder which may represent a small polyp. BILIARY SYSTEM: Common bile duct measures < 7 mm. No intrahepatic biliary ductal dilation. SHARIF'S SIGN: Negative. RIGHT KIDNEY: Kidney is normal in size. No evidence of renal calculi. No evidence of hydronephrosis. No renal mass or cyst identified. ASCITES: None seen. IMPRESSION: 1. Hepatic steatosis. 2. Possible small 4 mm gallbladder polyp. DATA REPOSITORY:
== END ==
PROVIDERS: PCP Family Medicine; Visit Provider Family Medicine
DX: K76.0 Fatty (change of) liver, not elsewhere classified (principal)
CPT/HCPCS: 76705

== ENCOUNTER 2024-08-03 10:21 | Emergency (ER) | payer MEDICARE, SELFPAY ==
[2024-08-03 10:24] VITALS: BP 129/84; PULSE 74; RESP 16; TEMP 36.1; O2SAT 97
[2024-08-03 10:28] VITALS: BP 129/84; PULSE 72; RESP 16; TEMP 36.1; O2SAT 97
--- NOTE | 2024-08-03 10:41 | ED.GENADUL_ITS ---
Discharge Plan Disposition Patient Disposition: Home Condition: Stable Discharge Details Clinical Impression: Foreign body in right ear, initial encounter Primary Care Provider: Isabel Arreaga ED Provider: Aziza Tavarez Home Meds and New Rx's Prescriptions: No Action citalopram 20 MG tablet 60 mg PO DAILY aspirin 81 mg Tablet 81 mg PO DAILY cholecalciferol (vitamin D3) [Vitamin D3] 10 mcg (400 unit) Capsule 20 mcg PO DAILY lorazepam [Ativan] 1 mg tablet 1 mg PO TID PRNQty: 7 0RF acetylcysteine 600 mg capsule 1,200 mg PO BID Patient Comments: TAKE TWO CAPSULES BY MOUTH EVERY MORNING AND TAKE 2 CAPSULES IN THE AFTERNOON NEEDED benzonatate 100 mg capsule 100 mg PO TID PRN (Reason: cough) Qty: 14 0RF Rx Instructions: Take 1 capsule up to 3 times daily as needed for cough Discharge Instructions Instructions: Foreign Body in Ear Additional Instructions: At this time the hearing aid was removed from her right ear canal. Please follow-up with the hearing aid center as discussed. Follow up with primary care provider in 3-5 days. Return to ED sooner if any worsening or concerns. Thank you for allowing us to care for you today. Discharge Data Discharge Date/Time-TO BE ENTERED AT DEPARTURE: 08/03/24 10:50 HPI General Mode of arrival: ambulatory . Date/Time Provider Initiated Documentation: 08/03/24 10:26 . Limitations to Documentation: no limitations . Information obtained by: patient, RN notes reviewed and old records reviewed . HPI Narrative: 74-year-old female presents to the ER with a chief complaint of broken off hearing aid to her right ear which happened this morning. visualized on otoscope exam. Denies any other associated symptoms or concerns. Related Data Home Medications ?Medication ?Instructions ?Recorded ?Confirmed citalopram 20 mg tablet 60 mg PO DAILY 12/06/12 08/03/24 aspirin 81 mg tablet 81 mg PO DAILY 05/30/22 08/03/24 cholecalciferol (vitamin D3) 10 20 mcg PO DAILY 05/30/22 08/03/24 mcg (400 unit) capsule (Vitamin D3) lorazepam 1 mg tablet (Ativan) 1 mg PO TID PRN #7 tabs 09/25/22 08/03/24 acetylcysteine 600 mg capsule 1,200 mg PO BID 10/01/22 08/03/24 benzonatate 100 mg capsule 100 mg PO TID PRN cough #14 caps 06/22/23 08/03/24 Previous Rx's ?Medication ?Instructions ?Recorded lorazepam 1 mg tablet (Ativan) 1 mg PO TID PRN #7 tabs 09/25/22 benzonatate 100 mg capsule 100 mg PO TID PRN cough #14 caps 06/22/23 Allergies Allergy/AdvReac Type Severity Reaction Status Date / Time Penicillins Allergy Intermediate Hives Verified 08/03/24 10:29 tetracycline (Tetracycline) Allergy Intermediate hive Verified 08/03/24 10:29 meclizine Allergy Unknown Other (See Verified 08/03/24 10:29 Comment) General Stated Complaint: EarProblem JOY: 5 Exam HENMT Head: normal to inspection Ears: EAC abnormal foreign body on the right (Tip of hearing aid and battery) Course Vital Signs Vital signs: Vital Signs Temperature 36.1 C L 08/03/24 10:24 Pulse 74 08/03/24 10:24 Respiratory Rate 16 08/03/24 10:24 Blood Pressure 129/84 08/03/24 10:24 Pulse Oximetry 97 08/03/24 10:24 Temperature 36.1 C L 08/03/24 10:28 Temperature Source Temporal Artery Scan 08/03/24 10:24 Pulse 72 08/03/24 10:28 Respiratory Rate 16 08/03/24 10:28 Blood Pressure 129/84 08/03/24 10:28 Blood Pressure Position Supine 08/03/24 10:28 Pulse Oximetry 97 08/03/24 10:28 Oxygen Delivery Method Room Air 08/03/24 10:28 Oxygen Flow Rate 0 08/03/24 10:24 Pain Level 0 08/03/24 10:28 Procedure Foreign Body Removal Date of Procedure: 08/03/24. Time of procedure: 10:41 Provider that performed the procedure: Aziza Arriaza Time Out Performed: Yes Patient Consented: Verbally Ultrasound: Not used Location of procedure: Ear/right side Foreign Body Suspected: battery (Hearing aid battery). TM intact pre-procedure: unable to visualize. Foreign Body Removed: yes. Foreign Body Removal Technique: instrumentation and forceps. Tympanic Membrane Intact: Yes. Complications: none. Medical Decision Making 74-year-old female presents to the ER with a chief complaint of broken off hearing aid to her right ear which happened this morning. visualized on otoscope exam. Denies any other associated symptoms or concerns. Hearing aid foreign body removed with forceps. I did attempt alligator forceps initially which was unsuccessful. Postprocedure and removal TM intact, no bleeding noted patient tolerated well. No retained foreign body. This text was generated using [employer] dictation system, please disregard any oddities of phrase or misspellings. Quality:SDOH Health Related Social Needs: No Data to Display PFSH All Active Problems (Updated 08/03/24 @ 10:43 by Aziza Tavarez NP) Foreign body in right ear, initial encounter (Acute) Cortical age-related cataract, left eye (Acute) Nuclear age-related cataract, left eye (Acute) COVID-19 (Acute) COVID-19 (Acute) Sensorineural hearing loss of both ears (Acute) Ruptured appendicitis (Acute) Medical History (Updated 08/03/24 @ 10:43 by Aziza Tavarez NP) Pleuritic chest pain migraine, unspec., not intractable Malrotation Bowel Irritable bowel syndrome Depression Cerebral palsy hemiplegic, congenital Disability Chronic Fatigue Surgical History 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 Vaginal hysterectomy Colonoscopy - MAC (04/28/17) Appendectomy Social History Smoking/Tobacco Use Status: Former Tobacco Use Smoking risk assessment performed?: Yes Alcohol Intake: never Drug use: Never Substance use type: does not use Do you feel safe at home: Yes Do you feel safe in your relationship?: Yes
== END 2024-08-03 10:50 | disposition home or self-care (01) ==
PROVIDERS: Emergency Provider Registered Nurse Emergency; PCP Family Medicine
DX: T16.1XXA Foreign body in right ear, initial encounter (principal); G80.9 Cerebral palsy, unspecified; Z87.891 Personal history of nicotine dependence; W44.G1XA Audio device entering into or through a natural orifice, initial encounter; Y93.89 Activity, other specified; Y92.018 Other place in single-family (private) house as the place of occurrence of the external cause
CPT/HCPCS: 69200; 99283

== ENCOUNTER 2024-09-20 07:45 | Emergency (ER) | payer MEDICARE, SELFPAY ==
[2024-09-20] VITALS (23 sets, daily range): BP systolic 132–187; BP diastolic 69–109; PULSE 63–81; RESP 9–29; TEMP 36.6; O2SAT 96–100
--- NOTE | 2024-09-20 08:15 | RT.EKG_ITS ---
APPROVED REPORT Exam: Resting ECG Reason for Exam: epigastric pain Patient Location: E HR:69 bpm ECG Measurements Heart Rate 69 AXIS OH 140 P 63 QRSd 84 QRS 59 QT 400 T 35 QTc 428 Conclusion Sinus rhythm...normal P axis, V-rate 60- 99 No Occlusion OK
--- NOTE | 2024-09-20 08:15 | DI.RAD_ITS ---
Exam(s) XR CHEST 2V PA LATERAL EXAM: XR CHEST 2V PA LATERAL CLINICAL HISTORY: epigastric pain TECHNIQUE: 2D digital imaging was performed. Two views. COMPARISON: CR XR CHEST 2V PA LATERAL from 05/30/2022 FINDINGS: HEART: Normal size. Aorta: Not dilated. PULMONARY VASCULATURE: Normal. MEDIASTINUM: Unremarkable. LUNGS: Clear. PLEURAL SPACE: No pleural effusion or pneumothorax. BONE:Unremarkable for age. SOFT TISSUES: Unremarkable. No free air beneath the diaphragm. No visible bowel distension. IMPRESSION: No acute abnormality. DATA REPOSITORY: RADIATION DOSE DELIVERED:
--- NOTE | 2024-09-20 08:15 | DI.CT_ITS ---
Exam(s) CT ABDOMEN PELVIS W EXAM: CT ABDOMEN PELVIS W CLINICAL HISTORY: epigastric pain. TECHNIQUE: Imaging Protocol: Axial computed tomography images with coronal and sagittal reformatted images were created and reviewed CONTRAST MATERIAL: Intravenous: Omnipaque 350 Contrast volume:100 ml Oral: yes no COMPARISON: CT CT CHEST PE CTA from 01/08/2022 FINDINGS: ABDOMEN and PELVIS: Lung Bases: No acute findings. Liver: Normal density. No suspicious mass. Gallbladder and biliary tract: No radiodense calculus. No wall thickening or pericholecystic fluid. No biliary dilation. Pancreas: Normal density. No abnormal calcifications or inflammatory process. No evidence of mass. Spleen: Normal. Kidneys: Normal size, contour and axis. No radiodense stones. No obstructive uropathy. No suspicious masses seen. Adrenal glands: No masses seen. Vasculature: Abdominal aorta non-dilated. Soft tissues: Unremarkable. Bladder: Empty. Not well evaluated. Bowel: No obstruction. No bowel wall thickening. Appendectomy. Normal quantity of stool. Congenital malrotation of the bowel with: On the left side of the abdomen. Cecum projected midline. Unchanged f rom prior. Peritoneal cavity: No ascites. No focal collection. No mesenteric inflammatory response. No free air . Bones: Unremarkable degenerative changes and mild scoliosis. Reproductive organs: Unremarkable hysterectomy. Ovaries are unremarkable. Lymph nodes: No pathologically enlarged lymph nodes. IMPRESSION:: No acute abnormality in the abdomen or pelvis. RADIATION DOSE DELIVERED: 614.2mGy.cm Total DLP DATA REPOSITORY: All CT scans at this facility are submitted to the National Radiology Data Registry (NRDR) Dose Index Registry (DIR) with the [employer] [place] [employer] (ACR). RADIATION OPTIMIZATION: All CT scans at this facility use at least one of these dose optimization te chniques: automated exposure control; mA and/or kV adjustment per patient size (includes targeted exa ms where dose is matched to clinical indication); or iterative reconstruction.
[2024-09-20 08:31] LABS: Abs Immature Grans 0.02 10^3/uL (0.0-0.06); Absolute Basophil Count 0.05 10^3/uL (0.0-0.2); Absolute Eosinophil Count 0.12 10^3/uL (0.0-0.7); Absolute Lymphocyte Count 1.47 10^3/uL (1.2-3.4); Absolute Monocyte Count 0.65 10^3/uL (0.1-0.8); Absolute Neutrophil Count 4.38 10^3/uL (1.2-6.7); Basophils % 0.7 %; Eosinophils % 1.8 %; HCT 43.9 % (36.0-46.0); HGB 15.7 g/dL (11.2-15.7); Immature Grans % 0.3 %; MCH 31.5 pg (27.0-33.0); MCHC 35.8 % (32.0-36.0); MCV 88 fL (80-95); MPV 9.7 fL (8.0-11.0); Monocytes % 9.7 %; Neutrophils % 65.5 %; Platelet Count 420 10^3/uL (130-400); RBC 4.98 10^6/uL (3.93-5.22); RDW 13.2 % (11.7-14.6); WBC 6.69 10^3/uL (4.4-10.8)
[2024-09-20] MEDS: Famotidine 20 MG/2 ML VIAL IVP (08:43)
[2024-09-20] MEDS: Prochlorperazine 10 MG/2 ML VIAL 5 MG IVP ×2 (08:44→10:08)
[2024-09-20] MEDS: MORPHine 10 MG/ML VIAL 2 MG IVP (08:44)
[2024-09-20 08:51] LABS: ALT 51 U/L (14-59); AST 42 U/L (15-37); Albumin 3.7 g/dL (3.4-5.0); Alkaline Phosphatase 73 U/L (46-116); Anion Gap 11.3 mmol/L (3-11); BUN 22 mg/dL (7-18); Bilirubin, Total 0.5 mg/dL (0.2-1.0); CO2 23.7 mmol/L (21.0-32.0); CREATININE 0.9 mg/dL (0.55-1.02); Calcium 9.2 mg/dL (8.5-10.1); Chloride 105 mmol/L (98-107); Estimated GFR 67.92 (mL/min/1.73m2); Glucose 93 mg/dL (74-106); Potassium 4.3 mmol/L (3.5-5.1); Sodium 140 mmol/L (136-145); Total Protein 7.6 g/dL (6.4-8.2)
[2024-09-20 08:59] LABS: Troponin I < 4 ng/L (<or=51)
[2024-09-20 09:06] LABS: Lipase 91 U/L (<78)
--- NOTE | 2024-09-20 09:09 | W.EDPROG ---
Date of service: 09/20/24 Time of Service: 09:09 Medical Decision Making I did not see this patient nor participate in her care. Quality:SDOH Health Related Social Needs: No Data to Display Discharge Plan Discharge Details Chief Complaint: Abd Prob Primary Care Provider: Isabel Arreaga ED Provider: Radha Spears Home Meds and New Rx's Prescriptions: No Action citalopram 20 MG tablet 60 mg PO DAILY aspirin 81 mg Tablet 81 mg PO DAILY cholecalciferol (vitamin D3) [Vitamin D3] 10 mcg (400 unit) Capsule 20 mcg PO DAILY lorazepam [Ativan] 1 mg tablet 1 mg PO TID PRNQty: 7 0RF acetylcysteine 600 mg capsule 1,200 mg PO BID Patient Comments: TAKE TWO CAPSULES BY MOUTH EVERY MORNING AND TAKE 2 CAPSULES IN THE AFTERNOON NEEDED
[2024-09-20] MEDS: Normal Saline - Diluent 50 ML VIAL IJ (09:23)
[2024-09-20] MEDS: Omnipaque 350 MG/ML 100 ML BTL 75 ML IJ (09:25)
[2024-09-20 09:37] LABS: Troponin I < 4 ng/L (<or=51)
[2024-09-20 10:12] LABS: Bilirubin Negative (Negative); Blood Negative (Negative); Clarity Sl Cloudy (Clear); Glucose Negative (Negative); Ketones Negative (Negative); Leukocyte Esterase Negative (Negative); Nitrite Negative (Negative); Urobilinogen 0.2 mg/dL (Up to 0.2)
--- NOTE | 2024-09-20 11:15 | ED.GENADUL_ITS ---
Discharge Plan Disposition Patient Disposition: Home Condition: Stable Discharge Details Clinical Impression: Gastritis Primary Care Provider: Isabel Arreaga ED Provider: Radha Spears Home Meds and New Rx's Prescriptions: New prochlorperazine maleate [Compazine] 10 mg tablet 10 mg PO TID PRNQty: 12 0RF Continued citalopram 20 MG tablet 60 mg PO DAILY aspirin 81 mg Tablet 81 mg PO DAILY cholecalciferol (vitamin D3) [Vitamin D3] 10 mcg (400 unit) Capsule 20 mcg PO DAILY lorazepam [Ativan] 1 mg tablet 1 mg PO TID PRNQty: 7 0RF acetylcysteine 600 mg capsule 1,200 mg PO BID Patient Comments: TAKE TWO CAPSULES BY MOUTH EVERY MORNING AND TAKE 2 CAPSULES IN THE AFTERNOON NEEDED Discharge Instructions Instructions: Gastritis (DC) Additional Instructions: Take Pepcid daily for the next week or so Take the Compazine every 8 hours Very bland diet as tolerated, check any nausea or, popsicles, philippe evonne, bananas, rice, applesauce, toast with butter, buttered noodles Referrals: Isabel Arreaga [Primary Care Provider] - 1 day HPI General Date/Time Provider Initiated Documentation: 09/20/24 07:55 . HPI Narrative: 74-year-old female with 4-day epigastric pain. Reports nausea without vomiting or diarrhea. History of ruptured appendix with similar pain. No radiation, blood in stool, or bowel changes. No exacerbating or relieving factors. No chest pain or shortness of breath. Related Data Home Medications ?Medication ?Instructions ?Recorded ?Confirmed citalopram 20 mg tablet 60 mg PO DAILY 12/06/12 09/20/24 aspirin 81 mg tablet 81 mg PO DAILY 05/30/22 09/20/24 cholecalciferol (vitamin D3) 10 20 mcg PO DAILY 05/30/22 09/20/24 mcg (400 unit) capsule (Vitamin D3) lorazepam 1 mg tablet (Ativan) 1 mg PO TID PRN #7 tabs 09/25/22 09/20/24 acetylcysteine 600 mg capsule 1,200 mg PO BID 10/01/22 09/20/24 prochlorperazine maleate 10 mg 10 mg PO TID PRN #12 tabs 09/20/24 tablet (Compazine) Previous Rx's ?Medication ?Instructions ?Recorded lorazepam 1 mg tablet (Ativan) 1 mg PO TID PRN #7 tabs 09/25/22 prochlorperazine maleate 10 mg 10 mg PO TID PRN #12 tabs 09/20/24 tablet (Compazine) Allergies Allergy/AdvReac Type Severity Reaction Status Date / Time Penicillins Allergy Intermediate Hives Verified 09/20/24 07:52 tetracycline (Tetracycline) Allergy Intermediate hive Verified 09/20/24 07:52 meclizine Allergy Unknown Other (See Verified 09/20/24 07:52 Comment) General Stated Complaint: Abd Prob JOY: 3 Exam Narrative Exam Narrative: General Appearance: Alert, oriented, tearful. Vital signs: Within normal limits. HEENT: Within normal limits. Respiratory: Lungs clear. Cardiovascular: Regular cardiac rate and rhythm. Gastrointestinal: No abdominal bruit, pulsatile mass, or CVA tenderness. Extremities: Distal pulses intact. Skin: No rashes, lesions, or trauma. Neurological: Normal. Course Vital Signs Vital signs: Vital Signs Temperature 36.6 C 09/20/24 07:48 Pulse 72 09/20/24 07:48 Respiratory Rate 20 09/20/24 07:48 Blood Pressure 149/93 H 09/20/24 07:48 Pulse Oximetry 100 09/20/24 07:48 Temperature 36.6 C 09/20/24 07:53 Temperature Source Tympanic 09/20/24 07:53 Pulse 78 09/20/24 09:01 Pulse 67 09/20/24 09:10 Respiratory Rate 16 09/20/24 09:10 Blood Pressure 187/109 H 09/20/24 09:01 Blood Pressure Mean 138 09/20/24 09:01 Blood Pressure Position Sitting 09/20/24 07:53 Pulse Oximetry 100 09/20/24 09:01 Oxygen Delivery Method Room Air 09/20/24 07:53 Oxygen Flow Rate 0 09/20/24 07:53 Lab/Test Results Lab/Test Results: Laboratory Tests Range/Units 09/20/24 09/20/24 09/20/24 08:05 09:05 10:01 WBC (4.4-10.8) 10^3/uL 6.69 RBC (3.93-5.22) 10^6/uL 4.98 Hgb (11.2-15.7) g/dL 15.7 Hct (36.0-46.0) % 43.9 MCV (80-95) fL 88 MCH (27.0-33.0) pg 31.5 MCHC (32.0-36.0) % 35.8 RDW (11.7-14.6) % 13.2 Plt Count (130-400) 10^3/uL 420 H MPV (8.0-11.0) fL 9.7 Immature Gran % % 0.3 Neutrophils % % 65.5 Lymphocytes % % 22.0 Monocytes % % 9.7 Eosinophils % % 1.8 Basophils % % 0.7 Nucleated RBC % (0.0-0.3) % 0.0 Absolute Neutrophils (1.2-6.7) 10^3/uL 4.38 Absolute Lymphocytes (1.2-3.4) 10^3/uL 1.47 Absolute Monocytes (0.1-0.8) 10^3/uL 0.65 Absolute Eosinophils (0.0-0.7) 10^3/uL 0.12 Absolute Basophils (0.0-0.2) 10^3/uL 0.05 Sodium (136-145) mmol/L 140 Potassium (3.5-5.1) mmol/L 4.3 Chloride (98-107) mmol/L 105 Carbon Dioxide (21.0-32.0) mmol/L 23.7 Anion Gap (3-11) mmol/L 11.3 H BUN (7-18) mg/dL 22 H Creatinine (0.55-1.02) mg/dL 0.9 Est GFR (CKD-EPI 2020) (mL/min/1.73m2) 67.92 Glucose (74-106) mg/dL 93 Calcium (8.5-10.1) mg/dL 9.2 Total Bilirubin (0.2-1.0) mg/dL 0.5 AST (15-37) U/L 42 H ALT (14-59) U/L 51 Alkaline Phosphatase (46-116) U/L 73 Troponin I (<or=51) ng/L < 4 < 4 Total Protein (6.4-8.2) g/dL 7.6 Albumin (3.4-5.0) g/dL 3.7 Lipase (<78) U/L 91 H Urine Color (Yellow) Yellow Urine Clarity (Clear) Sl Cloudy Urine pH (5-8) 7.0 Ur Specific [place] (1.005-1.025) 1.010 Urine Protein (Neg-Trace) mg/dL Negative Urine Ketones (Negative) mg/dL Negative Urine Blood (Negative) Negative Urine Nitrite (Negative) Negative Urine Bilirubin (Negative) Negative Urine Urobilinogen (Up to 0.2) mg/dL 0.2 Ur Leukocyte Esterase (Negative) Negative Urine Glucose (Negative) mg/dL Negative Medical Decision Making Lipase slightly elevated at 91. CT abdomen and chest x-ray: no acute pathology, no aortic or thoracic aneurysm. Initial Assessment: 74-year-old female with epigastric abdominal pain for 4 days, nausea without vomiting or diarrhea, no radiation of pain, no blood in stool, normal bowel movements, no exacerbating or relieving factors, no chest pain or shortness of breath. Alert and oriented, tearful, exquisitely tender in epigastrium. Cardiac rate and rhythm regular, lungs clear to auscultation, no abdominal bruit or pulsatile mass, distal pulses intact, no CVA tenderness, no rashes or lesions, no known trauma. Differential Diagnosis: - Pancreatitis: slight elevation in lipase (91), low suspicion. ED Course: - Ordered EKG, troponin, diagnostic blood work, CT abdomen, and chest x-ray. - EKG: no acute abnormality, QTc not prolonged. - Prior CT chest and abdomen/pelvis (2021, 2023): no acute pathology, no aortic or thoracic aneurysm. - CT abdomen/pelvis: no acute abnormality, read by me. - Labs: slight lipase elevation (91). - Administered morphine, Compazine, Pepcid. - Patient improved, tolerated clear liquids. - Reviewed return precautions, patient understood. - Recheck in 24-48 hours encouraged. Final Assessment: Patient with epigastric pain, slight elevation in lipase, low suspicion for pancreatitis. Diagnostic tests and imaging show no acute abnormalities. Treatment with morphine, Compazine, Pepcid resulted in improvement. Clinical Impression: - Epigastric pain - Low suspicion for pancreatitis Disposition: - Discharge - Follow-Up: Recheck in 24-48 hours. MDM Components Evaluation: - Number of Differential Diagnoses or Management Options: Pancreatitis - Amount and Complexity of Data Reviewed: EKG, troponin, diagnostic blood work, CT abdomen, chest x-ray, prior CT chest and abdomen/pelvis (2021, 2023) - Risk of Complication and Morbidity or Mortality: Low suspicion for pancreatitis, no acute abnormalities in diagnostic tests and imaging. Quality:SDOH Health Related Social Needs: No Data to Display PFSH All Active Problems (Updated 09/20/24 @ 11:23 by GERALDINE Brady) Gastritis (Acute) Cortical age-related cataract, left eye (Acute) Nuclear age-related cataract, left eye (Acute) COVID-19 (Acute) COVID-19 (Acute) Sensorineural hearing loss of both ears (Acute) Ruptured appendicitis (Acute) Medical History (Updated 09/20/24 @ 11:23 by GERALDINE Brady) Pleuritic chest pain migraine, unspec., not intractable Malrotation Bowel Irritable bowel syndrome Depression Cerebral palsy hemiplegic, congenital Disability Chronic Fatigue Surgical History 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 Vaginal hysterectomy Colonoscopy - MAC (04/28/17) Appendectomy Social History Smoking/Tobacco Use Status: Former Tobacco Use Smoking risk assessment performed?: Yes Alcohol Intake: never Drug use: Never Substance use type: does not use Do you feel safe at home: Yes Do you feel safe in your relationship?: Yes
== END 2024-09-20 11:39 | disposition home or self-care (01) ==
PROVIDERS: Emergency Provider Physician Assistant; PCP Family Medicine
DX: K29.70 Gastritis, unspecified, without bleeding (principal); G80.9 Cerebral palsy, unspecified; Z79.82 Long term (current) use of aspirin; Z87.891 Personal history of nicotine dependence
CPT/HCPCS: 123; 36415; 80053; 83690; 93005; 96374; 96375; 96376; 99285; 00123; 71046; 74177; 81003; 84484; 85025; 93010; J0780; J2270; J3490

== ENCOUNTER 2024-10-10 12:42 | Emergency (ER) | payer MEDICARE, SELFPAY ==
[2024-10-10 12:50] VITALS: BP 122/75; PULSE 83; RESP 20; TEMP 36.7; O2SAT 98
--- NOTE | 2024-10-10 14:08 | ED.GENADUL_ITS ---
Discharge Plan Disposition Patient Disposition: Home Condition: Stable Discharge Details Clinical Impression: Foreign body (FB) in soft tissue Primary Care Provider: Isabel Arreaga ED Provider: Luanne Cali Home Meds and New Rx's Prescriptions: No Action citalopram 20 MG tablet 60 mg PO DAILY aspirin 81 mg Tablet 81 mg PO DAILY cholecalciferol (vitamin D3) [Vitamin D3] 10 mcg (400 unit) Capsule 20 mcg PO DAILY lorazepam [Ativan] 1 mg tablet 1 mg PO TID PRNQty: 7 0RF Discharge Instructions Instructions: Foreign Body in Skin ED Additional Instructions: You were seen in the emergency department today for evaluation of a concern for an embedded tick. In our department you do full physical examination performed, and I did remove a small foreign body from the inside of your right knee. I do not know any tick body or mouthparts, and wonder about splinter, needlepoint, or other item that you use to remove the take at home. You need to use topical antibiotic ointment for the next several days, please change the dressing 1 or 2 times per day, and follow-up with your primary care provider, especially if you develop redness or swelling that spreads, fever or chills, or any other symptoms that cause you concern. Thank you for allowing us to be part of your care. HPI General Mode of arrival: ambulatory . Date/Time Provider Initiated Documentation: 10/10/24 14:08 . Limitations to Documentation: no limitations . Information obtained by: patient . HPI Narrative: This is a 74-year-old female patient presenting for evaluation of an embedded tick. The patient reports that she first noted the pain behind her right knee last night, and saw what she thought was a tick buried under the skin. She tried to remove it with tweezers, a sewing needle, and used peroxide and iodine swabs on the area. She is presenting for ongoing pain and foreign body. Prior to this event the patient was in her normal state of health. The tick has been attached for less than 24 hours. She is not experiencing any associated complaints. Related Data Home Medications ?Medication ?Instructions ?Recorded ?Confirmed citalopram 20 mg tablet 60 mg PO DAILY 12/06/12 10/10/24 aspirin 81 mg tablet 81 mg PO DAILY 05/30/22 10/10/24 cholecalciferol (vitamin D3) 10 20 mcg PO DAILY 05/30/22 10/10/24 mcg (400 unit) capsule (Vitamin D3) lorazepam 1 mg tablet (Ativan) 1 mg PO TID PRN #7 tabs 09/25/22 10/10/24 Previous Rx's ?Medication ?Instructions ?Recorded lorazepam 1 mg tablet (Ativan) 1 mg PO TID PRN #7 tabs 09/25/22 Allergies Allergy/AdvReac Type Severity Reaction Status Date / Time Penicillins Allergy Intermediate Hives Verified 10/10/24 12:54 tetracycline (Tetracycline) Allergy Intermediate hive Verified 10/10/24 12:54 meclizine Allergy Unknown Other (See Verified 10/10/24 12:54 Comment) General Stated Complaint: InsectBite JYO: 4 Exam Narrative Exam Narrative: Gen: Awake and alert, in no apparent distress HEENT: Non-icteric sclera Neck: Supple Lungs: No apparent respiratory distress, normal respiratory effort. CV: Appears well perfused Abdomen: Non-distended MSK: Moves 4 extremities without apparent limitation in ROM Skin: Visualized skin without rashes, cyanosis. The patient has 1/4 cm area of skin disruption at the medial aspect of the posterior right knee, with a small linear black foreign body appreciated by this provider. I note no insect body or mouth parts, small surrounding redness without induration, warmth, or purulent drainage. No bull's-eye rash noted. Neuro: Normal Gait, no obvious focal deficits or facial asymmetry. Speaks in full, clear sentences. Psych: Appropriate for situation. Course Vital Signs Vital signs: Vital Signs Temperature 36.7 C 10/10/24 12:50 Pulse 83 10/10/24 12:50 Respiratory Rate 20 10/10/24 12:50 Blood Pressure 122/75 10/10/24 12:50 Pulse Oximetry 98 10/10/24 12:50 Temperature 36.7 C 10/10/24 12:50 Temperature Source Oral 10/10/24 12:50 Pulse 83 10/10/24 12:50 Respiratory Rate 20 10/10/24 12:50 Blood Pressure 122/75 10/10/24 12:50 Blood Pressure Position Sitting 10/10/24 12:50 Pulse Oximetry 98 10/10/24 12:50 Oxygen Delivery Method Room Air 10/10/24 12:50 Oxygen Flow Rate 0 10/10/24 12:50 Pain Level 7 10/10/24 12:50 Procedure Foreign Body Removal Date of Procedure: 10/10/24. Time of procedure: 14:00 Provider that performed the procedure: Luanne Cali Standard Time Out Performed: No Patient Consented: Verbally Ultrasound: Not used Location of procedure: Lower extremity/right side Indication: History of foreign body. Confirmed by: direct visualization. Sterility: Non Sterile. Local anesthetic: Lidocaine 1% and with epi. Amount of local anesthetic used(mL): 0.25. Technique: Manual removal and Removal with forceps. Outcome: Sucessful Medical Decision Making This is a 74-year-old female patient presenting for evaluation of a foreign body, concern for tick embedded. Differential includes but is not limited to foreign body, though I do not visualize an insect or tick. I considered splinter, needle tip, residual insect parts. The patient does not have evidence of early localized Lyme infection with targetoid rash, and I do not appreciate any significant cellulitic changes nor fluctuance to suggest abscess. This is an isolated complaint and the patient is otherwise in her normal state of health and hemodynamically appropriate. The visualized foreign body was removed with forceps with the assistance of a very small injection of lidocaine just underneath the foreign body. I used topical antibiotic ointment and counseled the patient to continue this for the next several days at least 1 or 2 times per day. I do not see indication for systemic antibiotics at this time, but ensured that she had outpatient follow-up if she was to develop any symptoms of cellulitis or infection. At this time, the patient has had a full medical evaluation and is safe for discharge to home. They are hemodynamically stable, ambulatory, and tolerating PO. They are understanding of the follow-up plan and return precautions. They left our facility without incident. Luanne Cali MD Quality:[facility] Health Related Social Needs: No Data to Display PFSH All Active Problems (Updated 10/10/24 @ 14:11 by Luanne Cali MD) Foreign body (FB) in soft tissue (Acute) Gastritis (Acute) Cortical age-related cataract, left eye (Acute) Nuclear age-related cataract, left eye (Acute) COVID-19 (Acute) COVID-19 (Acute) Sensorineural hearing loss of both ears (Acute) Ruptured appendicitis (Acute) Medical History (Updated 10/10/24 @ 14:11 by Luanne Cali MD) Pleuritic chest pain migraine, unspec., not intractable Malrotation Bowel Irritable bowel syndrome Depression Cerebral palsy hemiplegic, congenital Disability Chronic Fatigue Surgical History 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 Vaginal hysterectomy Colonoscopy - MAC (04/28/17) Appendectomy Social History Smoking/Tobacco Use Status: Former Tobacco Use Smoking risk assessment performed?: Yes Alcohol Intake: never Drug use: Never Substance use type: does not use Do you feel safe at home: Yes Do you feel safe in your relationship?: Yes
[2024-10-10 14:26] VITALS: BP 139/89; PULSE 73; RESP 20; TEMP 36.6; O2SAT 96
[2024-10-10] MEDS: Bacitracin 1 PACKET (14:26)
== END 2024-10-10 14:28 | disposition home or self-care (01) ==
PROVIDERS: Emergency Provider Emergency Medicine; PCP Family Medicine
DX: M79.5 Residual foreign body in soft tissue (principal)
CPT/HCPCS: 99283; 99282

== ENCOUNTER 2025-02-14 07:34 | Day surgery (SDC) | payer MEDICARE, SELFPAY ==
[2025-02-14 07:40] VITALS: BP 120/89; PULSE 69; RESP 16; TEMP 36.4; O2SAT 97
[2025-02-14] MEDS: Tropicam./Phenyleph. (1/2.5%) 5 ML BTL OS ×3 (08:02→08:14)
--- NOTE | 2025-02-14 08:32 | W.ANESPRE ---
General Info Date of Service Date Performed: 02/14/25 Height: 5 ft 4 in Weight: 80.3 kg Body Mass Index (BMI): 30.4 Surgical Procedure: Operation Date: 02/14/25 09:40 Proposed Procedure Side Surgeon p Cataract Extraction with IOL Implant Left Vincent Contreras MD Meds Allergies and Home Medications Allergies Allergy/AdvReac Type Severity Reaction Status Date / Time Penicillins Allergy Intermediate Hives Verified 02/14/25 07:52 tetracycline (Tetracycline) Allergy Intermediate hive Verified 02/14/25 07:52 meclizine Allergy Unknown Other (See Verified 02/14/25 07:52 Comment) Home Medication ?Medication ?Instructions ?Recorded citalopram 20 mg tablet 40 mg PO DAILY 12/06/12 aspirin 81 mg tablet 81 mg PO DAILY 05/30/22 cholecalciferol (vitamin D3) 10 20 mcg PO DAILY 05/30/22 mcg (400 unit) capsule (Vitamin D3) lorazepam 1 mg tablet (Ativan) 1 mg PO TID PRN #7 tabs 09/25/22 nystatin 100,000 unit/gram topical 1 applic topical BID 02/12/25 cream prochlorperazine maleate 10 mg 10 mg PO TID PRN 02/12/25 tablet Current Visit Medications: Current Medications Generic Name Dose Route Start Last Admin Trade Name Freq PRN Reason Stop Dose Admin Acetaminophen 1,000 mg 02/14/25 06:00 Acetaminophen 500 Mg Tab PO 03/16/25 05:59 Q4H PRN PRN Balanced Salt Solution 500 ml 02/14/25 06:00 Balanced Salt Soln.-Plus 500 Ml Bag OP 03/16/25 05:59 DIRECTED CHRISTIAN Miscellaneous Medication 0 ml 02/14/25 06:00 Prednisolone 1%, Moxifloxacin 0.5%, Bromfenac 0.09% 5.6ml Btl OS 03/16/25 05:59 DIRECTED CHRISTIAN Miscellaneous Medication 0 ml 02/14/25 06:00 02/14/25 08:14 Tropicam./Phenyleph. (1/2.5%) 5 Ml Btl OS 03/16/25 05:59 1 drp DIRECTED CHRISTIAN Administration Tetracaine HCl 0 ml 02/14/25 06:00 Tetracaine 0.5% 4 Ml Btl OS 03/16/25 05:59 DIRECTED CHRISTIAN PFSH Active Problems Active Problems: Problem Status Onset Code Cortical age-related cataract, left eye Acute H25.012 Nuclear age-related cataract, left eye Acute H25.12 COVID-19 Acute U07.1 COVID-19 Acute U07.1 Sensorineural hearing loss of both ears Acute H90.3 Ruptured appendicitis Acute K35.2 Medical History Medical History Bilateral cataracts Bilateral hearing loss Hx of malignant melanoma Presence of total knee joint prosthesis Refractory migraine Cerebral infarction 09/07/20, 01/08/22. Per H&P...she does have occasional difficulty swallowing. Pleuritic chest pain migraine, unspec., not intractable Malrotation Bowel Irritable bowel syndrome Depression Cerebral palsy hemiplegic, congenital. (L) Disability Chronic Fatigue Surgical History Surgical History 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 Vaginal hysterectomy Colonoscopy - MAC (04/28/17) Appendectomy Tobacco Smoking/Tobacco Use Status: Former Tobacco Use Passive smoking exposure: No Alcohol Alcohol Intake: never Substance Use Substance use: Never Substance use type: does not use Vital Signs and Lab Results Vital Signs Most Recent Vital Signs in EMR: Most Recent Vital Signs Temp Pulse Resp BP Pulse Ox 36.4 C L 69 16 120/89 97 02/14/25 07:40 02/14/25 07:40 02/14/25 07:40 02/14/25 07:40 02/14/25 07:40 Imaging and Studies Imaging and Studies Study information below may be from another EMR and interpreted by another provider. Please see original notes in EMR for more complete details. EKG Summary: 09/20/24: Exam: Resting ECG Reason for Exam: epigastric pain Patient Location: E HR:69 bpm ECG Measurements Heart Rate 69 AXIS IL 140 P 63 QRSd 84 QRS 59 QT 400 T35 QTc 428 Conclusion Sinus rhythm...normal P axis, V-rate 60- 99 No Occlusion FL I have reviewed and I agree with the emergency room physician's ECG interpretation. Electronically signed by: <Electronically signed by Nila Easley M.D. in OV> 09/20/24 0913 Cosigned by: Stress Test Summary: MPI: 03/25/21: Clinical Reason for Termination: Fatigue Stress Symptoms: General Fatigue, Dyspnea Exercise duration: 5 min04 sec Highest Stage Reached: Stage 1: 1.7 mph at 10% grade. Exercise capacity: 4.65 METs Rate Pressure Product: [id number] Stress ECG Conclusion 1. This was a myocardial perfusion imaging study combining pharmacologic and low level stress 2. The resting electrocardiogram was normal 3. Patient was able to exercise to a workload of 4.65 METS. She achieved 71% of predicted heart rate for age 4. Echocardiographically the test was nondiagnostic due to inadequate heart rate Echocardiogram Summary: 03/21/17: Summary: 1. Left ventricle: The cavity size was normal. Wall thickness was normal. Systolic function was normal. The estimated ejection fraction was 60-65%. Wall motion was normal; there were no regional wall motion abnormalities. Diastolic parameters were normal for age. 2. Right ventricle: The cavity size was normal. Wall thickness was normal. Systolic function was normal. 3. Pulmonary arteries: Pulmonary systolic pressure was within the normal range. Anesthesia Assessment and Plan Anesthesia History Personal History: Delayed Emergence Family History: No Family History of Anesthesia Complications Exercise Tolerance Exercise Tolerance: Metabolic Equivalents>4 Pertinent Negatives Pertinent Negatives: No Symptoms of GERD Cardiac & Pulmonary Exam Cardiac Exam: Normal S1/S2 Heart Sounds Pulmonary Exam: Clear Bilateral Breath Sounds Implantable Cardiac Device Does patient have a Pacemaker or an ICD?: No Airway Exam Known Difficult Airway: No Mallampati Class: 2 Mouth Opening: Normal (> 3cm) Thyromental Distance: Less than 3 cm Neck Range of Motion: Full ROM Neck Circumference: Normal Teeth Condition: Normal Dentition ASA Classification ASA Score: ASA 3 Emergency Case?: No NPO Status NPO Status: NPO Clears >2 hours, Solids >8 hours Anesthesia Plan Resuscitation Status: Full Code Anesthesia Technique: MAC Anesthesia Airway Planned: Natural Airway Monitors Used: Standard Monitors
[2025-02-14 08:42] VITALS: BMI 30.4
[2025-02-14] MEDS: Tetracaine 0.5% 4 ML BTL OS (09:23)
[2025-02-14] MEDS: Povidone-Iodine Ophth 30 ML BTL (09:23)
[2025-02-14] MEDS: Phenylephrine/Lidocaine (15/10) MG/ML 1 ML VIAL (09:23)
[2025-02-14] MEDS: Balanced Salt Soln.-PLUS 500 ML BAG OP (09:29)
[2025-02-14] MEDS: Duovisc Viscoelastic System EACH 1 EACH (09:30)
[2025-02-14] MEDS: Lidocaine 1% Pres-Free 5 ML VIAL (09:30)
[2025-02-14] MEDS: Moxifloxacin-PF 1 MG/ML VIAL (09:38)
[2025-02-14] MEDS: Prednisolone 1%, Moxifloxacin 0.5%, Bromfenac 0.09% 5.6ML BTL OS (09:40)
--- NOTE | 2025-02-14 09:54 | W.PM.DSUDISC ---
Date of service: 02/14/25 Discharge Plan Disposition Patient Disposition: Home Discharge Details Attending Provider: Vincent Contreras Primary Care Provider: Isabel Arreaga Home Meds and New Rx's Prescriptions: No Action citalopram 20 MG tablet 40 mg PO DAILY aspirin 81 mg Tablet 81 mg PO DAILY cholecalciferol (vitamin D3) [Vitamin D3] 10 mcg (400 unit) Capsule 20 mcg PO DAILY lorazepam [Ativan] 1 mg tablet 1 mg PO TID PRNQty: 7 0RF prochlorperazine maleate 10 mg tablet 10 mg PO TID PRN Patient Comments: TAKE ONE TABLET BY MOUTH THREE TIMES A DAY NEEDED nystatin 100,000 unit/gram cream 1 applic topical BID Discharge Instructions Stand Alone Forms: DSU Post-Op Cataract, Natalie Kaiser ([facility]U) Discharge Orders Discharge Orders: Discharge Order (Routine); Ordered 02/14/25 Ordered By: Vincent Contreras DS: Diagnosis Discharge Diagnosis (1) Cortical age-related cataract, left eye: Status: Resolved (2) Nuclear age-related cataract, left eye: Status: Resolved
--- NOTE | 2025-02-14 09:55 | W.PM.OP ---
Operative Note Operative Note PRE-OP DIAGNOSIS: Nuclear/cortical cataract, left eye POST-OP DIAGNOSIS: same PROCEDURE: Cataract extraction using phacoemulsification with intraocular lens implant, left eye SURGEON: Vincent Contreras ANESTHESIA TYPE: Local By Surgeon and MAC Refer to Anesthesia Record PATHOLOGY: none sent COMPLICATIONS: None Patient was transported to: same day Patient's condition: stable Implants: Jhon Clareon [id number] Indications: Progressive decreased vision due to cataract, left eye Procedure Description: CATARACT SURGERY OPERATIVE REPORT PREOPERATIVE DIAGNOSIS: Nuclear/cortical cataract, left eye POSTOPERATIVE DIAGNOSIS: Same OPERATION: Cataract extraction using phacoemulsification with posterior chamber intraocular lens implant, left eye. IOL: IOL Nitrator Operator/Model: Jhon Clareon [id number] IOL Power: + 20.0 diopters IOL Serial Number: [id number] Optic Diameter: 6.0mm Haptic/Overall Diameter: 13.0mm PHACO INFO: Jhon Centurion Vision System with OZil and Active Fluidics Cumulative Dispersed Energy (CDE): 3.70 seconds SURGEON: Vincent Contreras MD, ZINA ANESTHESIA: Monitored Anesthesia Care (MAC), with local sub-tenon's anesthetic infiltration COMPLICATIONS: None SPECIMENS: None INDICATIONS FOR PROCEDURE: The patient is a 74-year-old lady with history of diminished visual acuity in her left eye secondary to the development of nuclear/cortical cataract. She is significantly symptomatic that she desires cataract surgery and attempt to improve and maximize her vision. The option of cataract surgery was offered to the patient and she wished to proceed. See office notes for detailed information. PROCEDURE: The correct surgical eye was identified and marked as the left eye and the pupil was dilated in the preoperative area using mydriatics and cycloplegics. The dilated pupil size was 6.0 mm. The patient elected to proceed without oral sedation. The patient was brought to the operating room where cardiopulmonary monitoring was instituted and surgical time-out was performed, confirming the correct operative eye and IOL power. Topical anesthesia was administered and ophthalmic povidone-iodine 5% was instilled into the conjunctival fornices. The malcolm-ocular area was prepped with Betadine 10% solution and draped in the usual sterile fashion for intraocular surgery, including an aperture drape. A Tegaderm transparent film dressing was cut in half and used to cover the lashes and lid margins. Care was taken to sequester the lashes and lid margins under the Tegaderm dressing. A lid speculum was placed between the lids of the operative eye and the Jhon LuxOR Revalia operating microscope was maneuvered into position. Tomer scissors were then used to make a conjunctival buttonhole approximately 6mm posterior to the limbus in the inferonasal quadrant. Blunt dissection was carried out to expose bare sclera, and a blunt-tipped sub-tenon?s anesthesia cannula was introduced and passed posteriorly along the globe where non-preserved plain lidocaine was injected into posterior sub-Tenon?s space. A sideport knife was used to make a paracentesis port. Intraocular phenylephrine/lidocaine was injected into the anterior chamber. The anterior chamber was then filled with viscoelastic. A keratome knife was used construct a two-plane clear corneal tunnel extending 2.0mm into clear cornea. A flap was raised on the anterior capsule and capsulorhexis forceps were used to complete a continuous curvilinear capsulorhexis of 5.0 mm. Balanced salt solution was then used to perform cortical cleaving hydrodissection and nuclear hydrodelineation until the lens could be freely rotated within the capsular bag. The lens nucleus was then disassembled and removed within the capsular bag and iris plane using phacoemulsification. Residual cortical material was removed using the irrigation/aspiration handpiece. The posterior capsule was carefully polished to remove as much residual lens epithelial cells as safely possible. The capsular bag was then inflated and the anterior chamber deepened with viscoelastic. The lens implant described above was inserted into the capsular bag using the Jhon Autonome Injector. A Kuglen hook was used to dial the IOL into position. Residual viscoelastic was then removed first from posterior to the IOL, then from the anterior chamber using the I/A handpiece. The lens implant was noted to center nicely within the capsular bag. The incisions were stromally hydrated, and the anterior chamber was reformed using BSS. Then 0.5cc of moxifloxacin 1.0mg/ml were injected into the capsular bag and anterior chamber. The incisions were checked with a Weck spear and found to be secure. Several drops of ophthalmic povidone-iodine 5% were then applied to the eye followed by two drops of combination steroid/NSAID/antibiotic solution. The drapes were removed and a clear plastic protective eye shield was placed over the eye. The patient was then returned to Same Day Surgery in stable condition. Date of Procedure: 02/14/25
[2025-02-14 09:58] VITALS: BP 142/91; PULSE 66; RESP 16; TEMP 36.2; O2SAT 98
--- NOTE | 2025-02-14 10:18 | W.ANESPOSTOP ---
Postoperative Evaluation Date, Time and Location Date Performed: 02/14/25 Time Performed: 09:58 Patient Location: Day Surgery Unit Vital Signs Most Recent Imported Vital Signs: Most Recent Vital Signs Temp Pulse Resp BP Pulse Ox 36.2 C L 66 16 142/91 H 98 02/14/25 09:58 02/14/25 09:58 02/14/25 09:58 02/14/25 09:58 02/14/25 09:58 Pain Score Most Recent Pain Score: Most Recent Pain Score Pain Level 0 02/14/25 09:58 Assessment Mental Status: Awake (Alert & Oriented to Patient Baseline) Airway and Respiratory Function: Patent airway with normal (patient baseline) respiratory exam Cardiovascular Function: Hemodynamically Stable Hydration Status: Adequately Hydrated Nausea & Vomiting: No Nausea or Vomiting Pain: Pt. Denies Any Pain Peripheral Nerve Block: Patient did not receive a nerve block
== END 2025-02-14 10:14 | disposition home or self-care (01) ==
LOC: SUR 07:34
PROVIDERS: PCP Family Medicine; Visit Provider Ophthalmology
PROC: (CPT 66984; principal; 2025-02-14 09:30)
DX: H25.012 Cortical age-related cataract, left eye (principal); H25.12 Age-related nuclear cataract, left eye
CPT/HCPCS: 66984; 00123; V2632; J2003

== ENCOUNTER 2025-02-28 13:07 | Day surgery (SDC) | payer MEDICARE, SELFPAY ==
[2025-02-28 13:13] VITALS: BP 146/90; PULSE 75; RESP 18; TEMP 36.3; O2SAT 99
[2025-02-28] MEDS: Tropicam./Phenyleph. (1/2.5%) 5 ML BTL OD ×3 (13:23→13:37)
--- NOTE | 2025-02-28 13:41 | W.PREOPHP ---
Assessment and Plan Assessment and plan (1) Cortical age-related cataract, right eye: Status: Acute Assessment and plan: Assessment: Visually significant cataract of the right eye. Plan: Cataract extraction with lens implantation of the right eye. (2) Nuclear age-related cataract, right eye: Status: Acute Assessment and plan: Assessment: Visually significant cataract of the right eye. Plan: Cataract extraction with lens implantation of the right eye. History of Present Illness History of Present Illness Chief Complaint: Progressive decreased vision, right eye Narrative: Progressive decreased vision in both eyes at both distance and near. She noted significant difficulty with glare when driving at night and trouble reading. On examination she was noted to have moderate bilateral nuclear/cortical cataract. She was significantly symptomatic that she desired cataract surgery which was performed OS on 02/14/2025. She is doing well postoperatively in the left eye and now desires cataract surgery in the right eye. Review of Systems All systems reviewed & are unremarkable except as noted in HPI and below PFSH All Active Problems Cortical age-related cataract, right eye (Acute) Nuclear age-related cataract, right eye (Acute) COVID-19 (Acute) COVID-19 (Acute) Sensorineural hearing loss of both ears (Acute) Ruptured appendicitis (Acute) Medical History Bilateral cataracts Bilateral hearing loss Hx of malignant melanoma Presence of total knee joint prosthesis Refractory migraine Cerebral infarction 09/07/20, 01/08/22. Per H&P...she does have occasional difficulty swallowing. Pleuritic chest pain migraine, unspec., not intractable Malrotation Bowel Irritable bowel syndrome Depression Cerebral palsy hemiplegic, congenital. (L) Disability Chronic Fatigue Surgical History 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 Vaginal hysterectomy Colonoscopy - MAC (04/28/17) Appendectomy Social History Smoking/Tobacco Use Status: Former Tobacco Use Quit Date: 05/22/64 Smoking risk assessment performed?: Yes Alcohol Intake: never Drug use: Never Substance use type: does not use Housing: house Do you feel safe at home: Yes Do you feel safe in your relationship?: Yes Meds Allergies and Home Medications Allergies Allergy/AdvReac Type Severity Reaction Status Date / Time Penicillins Allergy Intermediate Hives Verified 02/28/25 13:27 tetracycline (Tetracycline) Allergy Intermediate hive Verified 02/28/25 13:27 meclizine Allergy Unknown Other (See Verified 02/28/25 13:27 Comment) Home Medications ?Medication ?Instructions ?Recorded ?Confirmed ?Type citalopram 20 mg tablet 40 mg PO DAILY 12/06/12 02/28/25 History aspirin 81 mg tablet 81 mg PO DAILY 05/30/22 02/28/25 History cholecalciferol (vitamin D3) 10 20 mcg PO DAILY 05/30/22 02/28/25 History mcg (400 unit) capsule (Vitamin D3) lorazepam 1 mg tablet (Ativan) 1 mg PO TID PRN #7 tabs 09/25/22 02/28/25 Rx nystatin 100,000 unit/gram topical 1 applic topical BID 02/12/25 02/28/25 History cream prochlorperazine maleate 10 mg 10 mg PO TID PRN 02/12/25 02/28/25 History tablet Exam Eyes Other: Most recent ocular examination is significant for uncorrected visual acuity of 20/25 right eye, 20/25 left eye. Extraocular tone is normal. Intraocular pressure is 15 OD, 10 OS. Slit-lamp examination is significant for pupils dilated to 4.5 mm. Moderate nuclear/cortical cataract in the right eye with trace posterior subcapsular cataract. In the left eye there is a well-positioned PCIOL with clear posterior capsule. Funduscopic examination shows disc cupping of 0.7 OD 0.6 OS with normal vessels, macula, peripheral retina and vitreous. Resp Auscultation: clear to auscultation bilaterally Cardio Rate: regular rate Rhythm: regular rhythm Results Last Vital Signs Temp 36.3 C L 02/28/25 13:13 Pulse 75 02/28/25 13:13 Resp 18 02/28/25 13:13 BP 146/90 H 02/28/25 13:13 Pulse Ox 99 02/28/25 13:13
--- NOTE | 2025-02-28 14:04 | W.ANESPRE ---
General Info Date of Service Date Performed: 02/28/25 Height: 5 ft 4 in Weight: 79.9 kg Body Mass Index (BMI): 30.2 Surgical Procedure: Operation Date: 02/28/25 13:40 Proposed Procedure Side Surgeon p Cataract Extraction with IOL Implant Right Vincent Contreras MD Meds Allergies and Home Medications Allergies Allergy/AdvReac Type Severity Reaction Status Date / Time Penicillins Allergy Intermediate Hives Verified 02/28/25 13:27 tetracycline (Tetracycline) Allergy Intermediate hive Verified 02/28/25 13:27 meclizine Allergy Unknown Other (See Verified 02/28/25 13:27 Comment) Home Medication ?Medication ?Instructions ?Recorded citalopram 20 mg tablet 40 mg PO DAILY 12/06/12 aspirin 81 mg tablet 81 mg PO DAILY 05/30/22 cholecalciferol (vitamin D3) 10 20 mcg PO DAILY 05/30/22 mcg (400 unit) capsule (Vitamin D3) lorazepam 1 mg tablet (Ativan) 1 mg PO TID PRN #7 tabs 09/25/22 nystatin 100,000 unit/gram topical 1 applic topical BID 02/12/25 cream prochlorperazine maleate 10 mg 10 mg PO TID PRN 02/12/25 tablet Current Visit Medications: Current Medications Generic Name Dose Route Start Last Admin Trade Name Freq PRN Reason Stop Dose Admin Acetaminophen 1,000 mg 02/28/25 07:10 Acetaminophen 500 Mg Tab PO 03/30/25 07:09 Q4H PRN PRN Balanced Salt Solution 500 ml 02/28/25 07:10 Balanced Salt Soln.-Plus 500 Ml Bag OP 03/30/25 07:09 DIRECTED CHRISTIAN Miscellaneous Medication 0 ml 02/28/25 07:10 Prednisolone 1%, Moxifloxacin 0.5%, Bromfenac 0.09% 5.6ml Btl OD 03/30/25 07:09 DIRECTED CHRISTIAN Miscellaneous Medication 0 ml 02/28/25 07:10 02/28/25 13:37 Tropicam./Phenyleph. (1/2.5%) 5 Ml Btl OD 03/30/25 07:09 1 drp DIRECTED CHRISTIAN Administration Tetracaine HCl 0 ml 02/28/25 07:10 Tetracaine 0.5% 4 Ml Btl OD 03/30/25 07:09 DIRECTED CHRISTIAN PFSH Active Problems Active Problems: Problem Status Onset Code Cortical age-related cataract, right eye Acute H25.011 Nuclear age-related cataract, right eye Acute H25.11 Cortical age-related cataract, left eye Resolved H25.012 Nuclear age-related cataract, left eye Resolved H25.12 COVID-19 Acute U07.1 COVID-19 Acute U07.1 Sensorineural hearing loss of both ears Acute H90.3 Ruptured appendicitis Acute K35.2 Medical History Medical History Bilateral cataracts Bilateral hearing loss Hx of malignant melanoma Presence of total knee joint prosthesis Refractory migraine Cerebral infarction 09/07/20, 01/08/22. Per H&P...she does have occasional difficulty swallowing. Pleuritic chest pain migraine, unspec., not intractable Malrotation Bowel Irritable bowel syndrome Depression Cerebral palsy hemiplegic, congenital. (L) Disability Chronic Fatigue Surgical History Surgical History 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 Vaginal hysterectomy Colonoscopy - MAC (04/28/17) Appendectomy Tobacco Smoking/Tobacco Use Status: Former Tobacco Use Passive smoking exposure: No Alcohol Alcohol Intake: never Substance Use Substance use: Never Substance use type: does not use Vital Signs and Lab Results Vital Signs Most Recent Vital Signs in EMR: Most Recent Vital Signs Temp Pulse Resp BP Pulse Ox 36.3 C L 75 18 146/90 H 99 02/28/25 13:13 02/28/25 13:13 02/28/25 13:13 02/28/25 13:13 02/28/25 13:13 Imaging and Studies Imaging and Studies Study information below may be from another EMR and interpreted by another provider. Please see original notes in EMR for more complete details. EKG Summary: 09/20/24: Exam: Resting ECG Reason for Exam: epigastric pain Patient Location: E HR:69 bpm ECG Measurements Heart Rate 69 AXIS ME 140 P 63 QRSd 84 QRS 59 QT 400 T35 QTc 428 Conclusion Sinus rhythm...normal P axis, V-rate 60- 99 No Occlusion HI I have reviewed and I agree with the emergency room physician's ECG interpretation. Electronically signed by: <Electronically signed by Nila Easley M.D. in [facility]> 09/20/24 0913 Cosigned by: Stress Test Summary: MPI: 03/25/21: Clinical Reason for Termination: Fatigue Stress Symptoms: General Fatigue, Dyspnea Exercise duration: 5 min04 sec Highest Stage Reached: Stage 1: 1.7 mph at 10% grade. Exercise capacity: 4.65 METs Rate Pressure Product: [id number] Stress ECG Conclusion 1. This was a myocardial perfusion imaging study combining pharmacologic and low level stress 2. The resting electrocardiogram was normal 3. Patient was able to exercise to a workload of 4.65 METS. She achieved 71% of predicted heart rate for age 4. Echocardiographically the test was nondiagnostic due to inadequate heart rate Echocardiogram Summary: 03/21/17: Summary: 1. Left ventricle: The cavity size was normal. Wall thickness was normal. Systolic function was normal. The estimated ejection fraction was 60-65%. Wall motion was normal; there were no regional wall motion abnormalities. Diastolic parameters were normal for age. 2. Right ventricle: The cavity size was normal. Wall thickness was normal. Systolic function was normal. 3. Pulmonary arteries: Pulmonary systolic pressure was within the normal range. Anesthesia Assessment and Plan Anesthesia History Personal History: Delayed Emergence Family History: No Family History of Anesthesia Complications Exercise Tolerance Exercise Tolerance: Metabolic Equivalents>4 Pertinent Negatives Pertinent Negatives: No Symptoms of GERD Cardiac & Pulmonary Exam Cardiac Exam: Normal S1/S2 Heart Sounds Pulmonary Exam: Clear Bilateral Breath Sounds Implantable Cardiac Device Does patient have a Pacemaker or an ICD?: No Airway Exam Known Difficult Airway: No Mallampati Class: 2 Mouth Opening: Normal (> 3cm) Thyromental Distance: Less than 3 cm Neck Range of Motion: Full ROM Neck Circumference: Normal Teeth Condition: Normal Dentition ASA Classification ASA Score: ASA 3 Emergency Case?: No NPO Status NPO Status: NPO Clears >2 hours, Solids >8 hours Anesthesia Plan Resuscitation Status: Full Code Anesthesia Technique: MAC Anesthesia Airway Planned: Natural Airway Monitors Used: Standard Monitors
[2025-02-28 14:38] VITALS: BMI 30.2
[2025-02-28] MEDS: Lidocaine 1% Pres-Free 5 ML VIAL (14:41)
[2025-02-28] MEDS: Phenylephrine/Lidocaine (15/10) MG/ML 1 ML VIAL (14:42)
[2025-02-28] MEDS: Moxifloxacin-PF 1 MG/ML VIAL (14:42)
[2025-02-28] MEDS: Balanced Salt Soln.-PLUS 500 ML BAG OP (14:43)
[2025-02-28] MEDS: Povidone-Iodine Ophth 30 ML BTL (14:43)
[2025-02-28] MEDS: Duovisc Viscoelastic System EACH 1 EACH (14:43)
[2025-02-28] MEDS: Prednisolone 1%, Moxifloxacin 0.5%, Bromfenac 0.09% 5.6ML BTL OD (14:44)
--- NOTE | 2025-02-28 14:58 | W.PM.DSUDISC ---
Date of service: 02/28/25 Discharge Plan Disposition Patient Disposition: Home Discharge Details Attending Provider: Vincent Contreras Primary Care Provider: Isabel Arreaga Home Meds and New Rx's Prescriptions: No Action citalopram 20 MG tablet 40 mg PO DAILY aspirin 81 mg Tablet 81 mg PO DAILY cholecalciferol (vitamin D3) [Vitamin D3] 10 mcg (400 unit) Capsule 20 mcg PO DAILY lorazepam [Ativan] 1 mg tablet 1 mg PO TID PRNQty: 7 0RF prochlorperazine maleate 10 mg tablet 10 mg PO TID PRN Patient Comments: TAKE ONE TABLET BY MOUTH THREE TIMES A DAY NEEDED nystatin 100,000 unit/gram cream 1 applic topical BID Discharge Instructions Stand Alone Forms: [facility] Post-Op Cataract, Natalie Kaiser ([facility]) Discharge Orders Discharge Orders: Discharge Order (Routine); Ordered 02/28/25 Ordered By: Vincent Contreras DS: Diagnosis Discharge Diagnosis (1) Cortical age-related cataract, right eye: Status: Resolved (2) Nuclear age-related cataract, right eye: Status: Resolved
--- NOTE | 2025-02-28 14:59 | ROE_ITS ---
Operative Note Operative Note PRE-OP DIAGNOSIS: Nuclear/cortical cataract, right eye POST-OP DIAGNOSIS: same PROCEDURE: Cataract extraction using phacoemulsification with intraocular lens implant, right eye SURGEON: Vincent Contreras ANESTHESIA TYPE: Local By Surgeon and MAC Refer to Anesthesia Record ESTIMATED BLOOD LOSS: 0 PATHOLOGY: none sent COMPLICATIONS: None Patient was transported to: same day Patient's condition: stable Implants: Jhon Clareon [id number] Indications: Progressive decreased vision due to cataract, right eye Procedure Description: CATARACT SURGERY OPERATIVE REPORT PREOPERATIVE DIAGNOSIS: Nuclear/cortical cataract, right eye POSTOPERATIVE DIAGNOSIS: Same OPERATION: Cataract extraction using phacoemulsification with posterior chamber intraocular lens implant, right eye. IOL: IOL Applied Exercise Physiologist/Model: Jhon Clareon [id number] IOL Power: + 20.5 diopters IOL Serial Number: [id number] Optic Diameter: 6.0mm Haptic/Overall Diameter: 13.0mm PHACO INFO: Jhon Centurion Vision System with OZil and Active Fluidics Cumulative Dispersed Energy (CDE): 3.88 seconds SURGEON: Vincent Contreras MD, ZINA ANESTHESIA: Monitored Anesthesia Care (MAC), with local sub-tenon's anesthetic infiltration COMPLICATIONS: None SPECIMENS: None INDICATIONS FOR PROCEDURE: The patient is a 74-year-old lady with history of diminished visual acuity in both eyes secondary to the development of bilateral nuclear/cortical cataract. She is significantly symptomatic that she desires cataract surgery in attempt to improve and maximize her vision. She has already undergone cataract surgery in the left eye and is doing well postoperatively. She now presents for cataract surgery in the right eye. See office notes for detailed information. PROCEDURE: The correct surgical eye was identified and marked as the right eye and the pupil was dilated in the preoperative area using mydriatics and cycloplegics. The dilated pupil size was 5.0 mm. The patient elected to proceed without oral sedation. The patient was brought to the operating room where cardiopulmonary monitoring was instituted and surgical time-out was performed, confirming the correct operative eye and IOL power. Topical anesthesia was administered and ophthalmic povidone-iodine 5% was instilled into the conjunctival fornices. The malcolm-ocular area was prepped with Betadine 10% solution and draped in the usual sterile fashion for intraocular surgery, including an aperture drape. A Tegaderm transparent film dressing was cut in half and used to cover the lashes and lid margins. Care was taken to sequester the lashes and lid margins under the Tegaderm dressing. A lid speculum was placed between the lids of the operative eye and the Jhon Lux[employer] Revalia operating microscope was maneuvered into position. Tomer scissors were then used to make a conjunctival buttonhole approximately 6mm posterior to the limbus in the inferonasal quadrant. Blunt dissection was carried out to expose bare sclera, and a blunt-tipped sub-tenon?s anesthesia cannula was introduced and passed posteriorly along the globe where non- preserved plain lidocaine mixed 50-50 with ropivacaine 0.5% was injected into posterior sub-Tenon?s space. A sideport knife was used to make a paracentesis port. Intraocular phenylephrine/lidocaine was injected into the anterior chamber. The anterior chamber was then filled with viscoelastic. A keratome knife was used to construct a two--plane clear corneal tunnel extending 2.0mm into clear cornea. A flap was raised on the anterior capsule and capsulorhexis forceps were used to complete a continuous curvilinear capsulorhexis of 4.8 mm. Balanced salt solution was then used to perform cortical cleaving hydrodissection and nuclear hydrodelineation until the lens could be freely rotated within the capsular bag. The lens nucleus was then disassembled and removed within the capsular bag and iris plane using phacoemulsification. Residual cortical material was removed using the I/A handpiece. The posterior capsule was carefully polished to remove as much residual lens epithelial cells as safely possible. The capsular bag was then inflated and the anterior chamber deepened with cohesive viscoelastic. The lens implant described above was inserted into the capsular bag using the Jhon Autonome Injector. A Kuglen hook was used to dial the IOL into position. Residual viscoelastic was then removed first from posterior to the IOL, then from the anterior chamber using the I/A handpiece. The lens implant was noted to center nicely within the capsular bag. The incisions were stromally hydrated, and the anterior chamber was reformed using BSS. Then 0.5cc of moxifloxacin 1.0mg/ml were injected into the capsular bag and anterior chamber. The incisions were checked with a Weck spear and found to be secure. Several drops of ophthalmic povidone-iodine 5% were then applied to the eye followed by two drops of combination steroid/NSAID/antibiotic solution. The drapes were removed and a clear plastic protective eye shield was placed over the eye. The patient was then returned to Same Day Surgery in stable condition. Date of Procedure: 02/28/25
[2025-02-28 15:00] VITALS: BP 123/94; PULSE 77; RESP 16; TEMP 36.6; O2SAT 99
--- NOTE | 2025-02-28 15:21 | W.ANESPOSTOP ---
Postoperative Evaluation Date, Time and Location Date Performed: 02/28/25 Time Performed: 15:01 Patient Location: Day Surgery Unit Vital Signs Most Recent Imported Vital Signs: Most Recent Vital Signs Temp Pulse Resp BP Pulse Ox 36.6 C 77 16 123/94 H 99 02/28/25 15:00 02/28/25 15:00 02/28/25 15:00 02/28/25 15:00 02/28/25 15:00 Pain Score Most Recent Pain Score: Most Recent Pain Score Pain Level 0 02/28/25 15:00 Assessment Mental Status: Awake (Alert & Oriented to Patient Baseline) Airway and Respiratory Function: Patent airway with normal (patient baseline) respiratory exam Cardiovascular Function: Hemodynamically Stable Hydration Status: Adequately Hydrated Nausea & Vomiting: No Nausea or Vomiting Pain: Pt. Denies Any Pain Peripheral Nerve Block: Other (Local by Dr. Contreras)
== END 2025-02-28 15:22 | disposition home or self-care (01) ==
LOC: SUR 13:07
PROVIDERS: PCP Family Medicine; Visit Provider Ophthalmology
PROC: (CPT 66984; principal; 2025-02-28 13:30)
DX: H25.011 Cortical age-related cataract, right eye (principal); H25.11 Age-related nuclear cataract, right eye; Z98.42 Cataract extraction status, left eye
CPT/HCPCS: 66984; 00123; V2632; J2003; J2795